=== PATIENT | female | born 1970 | race Caucasian/White ===

== ENCOUNTER 2019-03-18 15:55 | Outpatient (CLI) | payer BC, OTHER, SELFPAY ==
--- NOTE | 2019-03-18 16:06 | XR_ITS ---
WS: [id number] CERVICAL SPINE 3 VIEWS HISTORY: CERVICAL SPINE PAIN/HX OF C4/C5/C6 SURGERY COMPARISON: 05/26/2013 Anterior cervical fusion extends from C4 to C6. Interbody spacer at C4-5 and C5-6 with fusion across the disc. No fractures. Moderate disc space narrowing at C6-7. Lateral masses of C1 and C2 are aligned odontoid is intact. Soft tissues are normal. XR/XR cervical spine 3V* [id number] IMPRESSION: 1. Anterior cervical fusion from C4 to C6 with no complications. 2. Moderate degenerative disc disease at C6-7.
== END 2019-03-18 15:56 | disposition home or self-care (01) ==
LOC: RAD 16:03
PROVIDERS: Family Provider Family Medicine; PCP Family Medicine; Visit Provider Family Medicine
DX: M47.892 Other spondylosis, cervical region (principal); M54.2 Cervicalgia; Z98.1 Arthrodesis status
CPT/HCPCS: 72040

== ENCOUNTER 2019-03-27 10:06 | Emergency (ER) | payer BC, OTHER, SELFPAY ==
[2019-03-27 10:09] VITALS: BP 160/91; PULSE 101; RESP 16; TEMP 36.7; O2SAT 100; BMI 30.9
--- NOTE | 2019-03-27 10:34 | ED_ITS ---
Entered by Leanne Elizabeth acting as scribe for Alexandre Hernandez DO Mar 27, 2019 10:06 HPI - Abdominal Pain General: Chief Complaint: Abdominal Pain Stated Complaint: peeing blood Time Seen by Provider: 03/27/19 10:31 Source: patient and RN notes reviewed Mode of arrival: ambulatory Limitations: no limitations History of Present Illness: HPI narrative: 48 yo female presents to ED with complaints of hematuria. She said she has been peeing blood all morning. She said she has R sided abdominal pain that radiates to the R flank. She has been feeling tired and flushed. She said she was nauseated last night and she woke this morning nauseated. MD elicited complaint: abdominal pain (R side) and flank pain (R) Pertinent past history: none Onset (ago): hour(s) (this morning) Pain Consistency: constant Location: RLQ and R flank Severity: moderate Quality: cramping and stabbing Radiation: R flank Migration to: R flank Exacerbating factors: nothing Relieving factors: nothing Associated Symptoms: Reports dysuria and nausea; Denies chills, fever(s) and syncope Review of Systems Const: Denies: fever, chills, body aches, fatigue, malaise or night sweats Eyes: Denies: change in vision or blurry vision ENMT: Denies: throat pain, oral sores/lesions, dental pain, nasal discharge or nasal congestion Card: Denies: chest pain, palpitations, irregular heart rhythm, edema, syncope, shortness of breath on exertion, shortness of breath when lying down or leg pain with exertion Resp: Denies: shortness of breath, productive cough, non-productive cough or wheezing GI: Reports: nausea : Reports: painful urination and urinary frequency; Denies: urinary urgency or urinary incontinence Musc: Denies: neck pain, back pain, extremity pain, extremity swelling, joint pain or joint swelling Skin/Breast: Denies: rash, itching or redness Neuro: Denies: headache, numbness in extremities, weakness in extremities, changes in sensation, lack of coordination, difficulty walking, frequent falls, dizziness, vertigo or confusion Psych: Denies: anxiety, depression, loss of interest, visual hallucinations, auditory hallucinations, suicidal ideation or homicidal ideation Endo: Denies: excessive urination, excessive thirst, tired all the time or cold intolerance Juarez/Lymph: Denies: easy bruising, easy bleeding, petechiae, enlarged lymph nodes or tender lymph nodes PFSH ED PFSH: Statuses (acute, chronic, etc) shown below reflect problem list status as previously entered and may not be historically accurate Social History Smoking and tobacco status: never smoked Physical Exam Const: COMMON NORMALS: no apparent distress GENERAL APPEARANCE: cooperative and comfortable ORIENTATION/CONSCIOUSNESS: Yes awake, Yes oriented to person, Yes oriented to place and Yes oriented to time HENMT: COMMON NORMALS: normocephalic, head/scalp atraumatic, hearing grossly normal bilaterally, external ears normal, EAC's normal, TM's normal bilaterally, nasal mucous membranes and turbinates normal, moist oral mucous membranes and oropharynx normal HEAD & SCALP: normocephalic and atraumatic NOSE: nasal mucous membranes and turbinates normal EXTERNAL EAR: Yes external ears normal EXTERNAL AUDITORY CANAL: EAC's normal TYMPANIC MEMBRANE: TM's normal bilaterally Eye: COMMON NORMALS: PERRL, EOMs intact bilaterally, conjunctivae normal and no scleral icterus CONJUNCTIVA: Yes conjunctivae normal PUPIL: Yes PERRL Neck/C-Spine: COMMON NORMALS: full ROM, no lymphadenopathy, supple and no JVD Lymph: LYMPHATIC: no lymphadenopathy noted and no lymphedema noted Resp: COMMON NORMALS: normal respiratory effort, no retractions, no use of accessory muscles and clear to auscultation bilaterally AUSCULTATION: clear to auscultation bilaterally Cardio: COMMON NORMALS: no JVD, regular rate, regular rhythm and no murmurs RATE: regular rate RHYTHM: regular rhythm GI: COMMON NORMALS: soft to palpation and no hepatosplenomegaly AUSCULTATION: Yes normoactive bowel sounds PALPATION: Yes soft, No tender, No guarding and Yes no hepatosplenomegaly : BLADDER/KIDNEY EXAM: Yes CVA tenderness bilateral Back/Pelvis: GENERAL BACK: Yes CVA tenderness Extremity: COMMON NORMALS: normal to inspection, normal capillary refill, no clubbing, cyanosis or edema, no calf tenderness and no pedal edema Neuro: SENSORIUM/ORIENTATION: Yes oriented to person, Yes oriented to place and Yes oriented to time Skin: COMMON NORMALS: no rashes or lesions noted GENERAL SKIN EXAM: no rashes or lesions noted Course Vital Signs: Vital signs: Vital Signs Temperature 98.1 F 03/27/19 10:09 Pulse Rate 80 03/27/19 13:49 Respiratory Rate 18 03/27/19 13:49 Blood Pressure 133/87 03/27/19 13:49 Pulse Oximetry 98 03/27/19 13:49 MDM - Abdominal Pain Lab Data: Labs: Lab Results 03/27/19 03/27/19 03/27/19 Range/Units 10:30 10:32 10:32 WBC 14.0 H (4.0-10.0) 10^3/ uL RBC 4.61 (4.1-5.3) 10^6/u L Hgb 12.8 (11.5-15.3) g/dL Hct 39.8 (37.0-47.0) % MCV 86.3 (81-99) fL MCH 27.8 L (28.0-34.0) pg MCHC 32.2 (30.0-36.0) g/dL RDW 13.3 (12.1-15.1) % Plt Count 320 (130-400) 10^3/c mm MPV 10.4 (7.4-10.4) fL Neut % (Auto) 64.9 % Lymph % (Auto) 26.9 % King % (Auto) 5.9 % Eos % (Auto) 1.3 % Baso % (Auto) 0.4 % Neut # (Auto) 9.1 H (1.8-7.7) 10^3/u L Lymph # (Auto) 3.8 (0.8-4.8) 10^3/u L King # (Auto) 0.8 (0.2-0.9) 10^3/u L Eos # (Auto) 0.2 (0.0-0.8) 10^3/u L Baso # (Auto) 0.1 (0.0-0.1) 10^3/u L Nucleated RBC % (a uto) 0 % Nucleated RBCs # 0.0 /100WBC Sodium 138 (136-145) mmol/L Potassium 3.4 L (3.5-5.1) mmol/L Chloride 98 (98-107) mmol/L Carbon Dioxide 25 (22-29) mmol/L Anion Gap 18.4 (5-19) BUN 19 (6-20) mg/dL Creatinine 1.2 H (0.5-0.9) mg/dL GFR Calculation 47.9 L (90-130) mL/min Glucose 190 H (65-115) mg/dL Calcium 9.4 (8.5-10.5) mg/dL Total Bilirubin 0.4 (0.15-1.2) mg/dL AST 23 (0-32) U/L ALT 40 H (0-33) U/L Alkaline Phosphata se 76 (35-105) IU/L Total Protein 7.4 (6.6-8.7) g/dL Albumin 4.7 (3.5-5.2) g/dL Globulin 2.7 (1.3-4.6) g/dL Lipase 28 (13-60) U/L Urine Color Brown (Yellow) Urine Appearance Turbid (CLEAR) Urine pH 5.0 (5-7) Ur Specific Gravit y 1.025 (1.005-1.030) Urine Protein 2+ H (Negative) Urine Glucose (UA) Norm (Normal) Urine Ketones 1+ H (Negative) Urine Occult Blood 3+ H (Negative) Urine Nitrate Negative (Negative) Urine Bilirubin 1+ H (NEGATIVE) Urine Urobilinogen 1 H (Negative) mg/dL Ur Leukocyte Janell ase 1+ H (Negative) Urine RBC >100 H (0-2) /hpf Urine WBC 10-15 H (0-5) /hpf Ur Squamous Epith Cells 5-10 H (0-5) Urine Bacteria 1+ H (NONE) Imaging Data ^: CT Abd/Pel: Radiologist's impression: [place] [address] CT Scan Report Signed Patient: Janette Nguyen AUnit #: [id number] : 1970Acct#:[id number] Age/Sex: 48 / FADM Date: 03/27/19 Loc: ERRoom/Bed: Attending Dr: Ordering Provider/Ordering MD: Alexandre Hernandez DO Date of Service: 03/27/19 Procedure(s): CT kidney stone 14201 Accession Number(s): [id number] Report Number: [id number] PROCEDURE INFORMATION: Exam: CT Abdomen And Pelvis Without Contrast Exam date and time: 03/27/2019 12:06 PM Age: 48 years old Clinical indication: Abdominal pain; Prior surgery; Surgery type: Gb. Hysterectomy. ; Patient HX: Right flank pain with hematuria. History of nephrolithiasis TECHNIQUE: Imaging protocol: Computed tomography of the abdomen and pelvis without contrast. Total DLP: 1827.79 mGy-cm Radiation optimization: All CT scans at this facility use at least one of these dose optimization techniques: automated exposure control; mA and/or kV adjustment per patient size (includes targeted exams where dose is matched to clinical indication); or iterative reconstruction. COMPARISON: CT abdomen pelvis w con* [id number] 04/30/2017 1:56 PM FINDINGS: Pleural space: No acute airspace or pleural disease. Liver: Fatty infiltration of the liver and poorly characterized 1.7 and 1.5 cm nodular lesions of soft tissue attenuation in the right hepatic lobe (series 2: Images 40 and 50). Gallbladder and bile ducts: Status post cholecystectomy without biliary ductal dilatation. Pancreas: No pancreatic mass or ductal dilatation. Spleen: Spleen upper limits of normal in size. Adrenals: Unremarkable adrenals. Kidneys and ureters: Lobulated renal morphology. No urolithiasis or hydronephrosis. Stomach and bowel: 2.2 cm duodenal diverticulum. Mild gastric wall thickening. No significant small bowel dilatation. Copious stool in the dilated colon, in a pattern of constipation. Appendix: No acute appendicitis. Intraperitoneal space: No free fluid. Vasculature: Pelvic vascular calcifications. Normal caliber of the abdominal aorta. Lymph nodes: Subcentimeter lymph nodes. Bladder: Nondistended bladder. Reproductive: Status post hysterectomy. Bones/joints: Mild degenerative change. Soft tissues: Fat containing umbilical hernia. CT/CT kidney stone [id number] IMPRESSION: 1. Fatty infiltration of the liver and poorly characterized 1.7 and 1.5 cm nodular lesions of soft tissue attenuation in the right hepatic lobe. 2. No urolithiasis or hydronephrosis. 3. Copious stool in the dilated colon, in a pattern of constipation. 4. Additional findings as described above. Radiation Dose CTDIVOL = (mGy): DLP = 1827.79 (mGy-cm) Dictated By:Hardy Fry MD Signed By:Ang,Hardy MDSigned Date/Time:03/27/19 1306 DD/ Discharge Plan Discharge Patient Disposition: Home, Self-Care Clinical Impression: Cystitis, Constipation Condition: Stable Prescriptions: New Cipro 500 mg tablet 500 mg PO BID 5 Days Qty: 10 RF: 0 No Action levothyroxine 175 mcg tablet 175 mcg PO DAILY RF: 0 gabapentin 600 mg tablet 600 mg PO TID RF: 0 diclofenac sodium 100 mg tablet extended release 24 hr 100 mg PO DAILY RF: 0 prednisone 5 mg tablet See Rx Instructions .ROUTE .COMPLEX RF: 0 omeprazole 40 mg capsule,delayed release(DR/EC) 40 mg PO DAILY RF: 0 liothyronine 5 mcg tablet 5 mcg PO DAILY RF: 0 glimepiride 2 mg tablet 2 mg PO DAILY RF: 0 Tylenol Arthritis Pain 650 mg Tablet Extended Release 1,300 mg PO BID PRN (Reason: unknown) RF: 0 potassium chloride 20 mEq tablet,ER particles/crystals 20 meq PO DAILY RF: 0 baclofen 10 mg tablet 10 mg PO TID PRN (Reason: Spasms) RF: 0 prednisone 50 mg tablet See Rx Instructions .ROUTE .COMPLEX RF: 0 Aleve 220 mg Tablet 220 mg PO BID PRN (Reason: Pain) RF: 0 lidocaine 5 % adhesive patch,medicated See Rx Instructions .ROUTE .COMPLEX RF: 0 Allergy Relief D12 5-120 mg tablet extended release 12 hr 1 tab PO DAILY RF: 0 furosemide 20 mg tablet 40 mg PO DAILY PRN (Reason: Edema) RF: 0 zolpidem 10 mg tablet 10 mg PO BEDTIME PRN (Reason: Sleep) RF: 0 paroxetine HCl 40 mg tablet 40 mg PO DAILY RF: 0 ipratropium bromide 0.03 % spray,non-aerosol 2 spray INTRANASAL DAILY PRN (Reason: unknown) RF: 0 cyclobenzaprine 5 mg tablet 5 mg PO TID PRN (Reason: Spasms) RF: 0 buprenorphine-naloxone 8-2 mg Film 2 film BUCCAL DAILY PRN (Reason: unknown) RF: 0 Discharge Orders: Discharge Order (Routine); Ordered 03/27/19 Ordered By: Alexandre Hernandez Referrals: Maliha Tijerina MD [Primary Care Provider] - Discharge Diet: Usual diet Discharge Activity: Resume usual activity Discharge Date/Time: 03/27/19 13:37 Coding Level of Care Code ED Bpo Specialist for Chg Fwd The documentation recorded by the Glenn burch Valerie R, accurately reflects the service I personally performed and the decisions made by David leyva Curtis L, DO Mar 27, 2019 10:06
[2019-03-27 10:44] LABS: Basophils # 0.1 10^3/uL (0.0-0.1); Basophils % 0.4 %; Eosinophils # 0.2 10^3/uL (0.0-0.8); Eosinophils % 1.3 %; Hematocrit 39.8 % (37.0-47.0); Hemoglobin 12.8 g/dL (11.5-15.3); Lymphocytes # 3.8 10^3/uL (0.8-4.8); Lymphocytes % 26.9 %; Mean Corpuscular HGB Conc 32.2 g/dL (30.0-36.0); Mean Corpuscular Hemoglobin 27.8 pg (28.0-34.0); Mean Corpuscular Volume 86.3 fL (81-99); Mean Platelet Volume 10.4 fL (7.4-10.4); Monocytes # 0.8 10^3/uL (0.2-0.9); Monocytes % 5.9 %; Neutrophils # 9.1 10^3/uL (1.8-7.7); Neutrophils % 64.9 %; Nucleated Red Blood Cells % 0 %; Platelet Count 320 10^3/cmm (130-400); Red Blood Count 4.61 10^6/uL (4.1-5.3); Red Cell Distribution Width 13.3 % (12.1-15.1)
[2019-03-27 10:49] LABS: Add Urine Microscopic? YES; Bilirubin Urine 1+ (NEGATIVE); Blood Urine 3+ (Negative); Glucose Urine UA Norm (Normal); Ketones Urine 1+ (Negative); Leukocyte Esterase Urine 1+ (Negative); Nitrate Urine Negative (Negative); Protein Urine 2+ (Negative); Specific Gravity, Urine 1.025 (1.005-1.030); Urine Appearance Turbid (CLEAR); Urine Color Brown (Yellow); Urobilinogen Urine 1 mg/dL (Negative)
[2019-03-27 10:55] LABS: Alanine Aminotransferase 40 U/L (0-33); Albumin Level 4.7 g/dL (3.5-5.2); Alkaline Phosphatase 76 IU/L (35-105); Anion Gap 18.4 (5-19); Aspartate Amino Transferase 23 U/L (0-32); Blood Urea Nitrogen 19 mg/dL (6-20); Calcium 9.4 mg/dL (8.5-10.5); Carbon Dioxide 25 mmol/L (22-29); Chloride 98 mmol/L (98-107); Globulin 2.7 g/dL (1.3-4.6); Glomerular Filtration Rate 47.9 mL/min (90-130); Glucose 190 mg/dL (65-115); Lipase 28 U/L (13-60); Potassium 3.4 mmol/L (3.5-5.1); Sodium 138 mmol/L (136-145); Total Bilirubin 0.4 mg/dL (0.15-1.2); Total Protein 7.4 g/dL (6.6-8.7)
[2019-03-27 11:00] LABS: Add Urine Culture? Yes; Bacteria Urine 1+; RBC Urine >100 /hpf (0-2)
--- NOTE | 2019-03-27 11:35 | CTR_ITS ---
PROCEDURE INFORMATION: Exam: CT Abdomen And Pelvis Without Contrast Exam date and time: 03/27/2019 12:06 PM Age: 48 years old Clinical indication: Abdominal pain; Prior surgery; Surgery type: Gb. Hysterectomy. ; Patient HX: Right flank pain with hematuria. History of nephrolithiasis TECHNIQUE: Imaging protocol: Computed tomography of the abdomen and pelvis without contrast. Total DLP: 1827.79 mGy-cm Radiation optimization: All CT scans at this facility use at least one of these dose optimization techniques: automated exposure control; mA and/or kV adjustment per patient size (includes targeted exams where dose is matched to clinical indication); or iterative reconstruction. COMPARISON: CT abdomen pelvis w con* [id number] 04/30/2017 1:56 PM FINDINGS: Pleural space: No acute airspace or pleural disease. Liver: Fatty infiltration of the liver and poorly characterized 1.7 and 1.5 cm nodular lesions of soft tissue attenuation in the right hepatic lobe (series 2: Images 40 and 50). Gallbladder and bile ducts: Status post cholecystectomy without biliary ductal dilatation. Pancreas: No pancreatic mass or ductal dilatation. Spleen: Spleen upper limits of normal in size. Adrenals: Unremarkable adrenals. Kidneys and ureters: Lobulated renal morphology. No urolithiasis or hydronephrosis. Stomach and bowel: 2.2 cm duodenal diverticulum. Mild gastric wall thickening. No significant small bowel dilatation. Copious stool in the dilated colon, in a pattern of constipation. Appendix: No acute appendicitis. Intraperitoneal space: No free fluid. Vasculature: Pelvic vascular calcifications. Normal caliber of the abdominal aorta. Lymph nodes: Subcentimeter lymph nodes. Bladder: Nondistended bladder. Reproductive: Status post hysterectomy. Bones/joints: Mild degenerative change. Soft tissues: Fat containing umbilical hernia. CT/CT kidney stone [id number] IMPRESSION: 1. Fatty infiltration of the liver and poorly characterized 1.7 and 1.5 cm nodular lesions of soft tissue attenuation in the right hepatic lobe. 2. No urolithiasis or hydronephrosis. 3. Copious stool in the dilated colon, in a pattern of constipation. 4. Additional findings as described above. Radiation Dose CTDIVOL = (mGy): DLP = 1827.79 (mGy-cm)
[2019-03-27 13:49] VITALS: BP 133/87; PULSE 80; RESP 18; O2SAT 98
== END 2019-03-27 13:37 | disposition home or self-care (01) ==
PROVIDERS: Emergency Provider Family Medicine; Family Provider Family Medicine; PCP Family Medicine
DX: N30.90 Cystitis, unspecified without hematuria (principal); K59.00 Constipation, unspecified
CPT/HCPCS: 36415; 74176; 80053; 81001; 83690; 85025; 87077; 87086; 87186; 99281; 99283; A9270

== ENCOUNTER 2019-04-25 01:33 | Emergency (ER) | payer BC, OTHER, SELFPAY ==
[2019-04-25] VITALS (21 sets, daily range): BP systolic 124; BP diastolic 72–78; PULSE 64–104; RESP 12–29; TEMP 36.7; O2SAT 91–99
--- NOTE | 2019-04-25 01:38 | ED_ITS ---
Entered by Melany Cazares, acting as scribe for Adalid Velazquez MD HPI - SOB/Dyspnea General: Chief Complaint: Shortness of Breath/Dyspnea Stated Complaint: sob/weak Time Seen by Provider: 04/25/19 01:42 History of Present Illness: HPI Narrative: 48 yo f came to the er pov for shortness of breath and low blood pressure. Onset was tonight. Pt states that she has been sick for about 1 week. pt has a cough, dull chest pain, shortness of breath and low bp 85/60 when they took it at home. Patient's blood pressure here is been normal. Patient's had slight abdominal pain. Patient denies any vomiting or diarrhea. MD elicited complaint: shortness of breath and cough Context: recent illness Timing: intermittent Severity: mild Exacerbating factors: nothing Relieving factors: nothing Associated symptoms: Reports cough; Deny abdominal pain, chest pain, fever(s), nausea or vomiting Treatment prior to arrival: none Related Data: Home oxygen amount: none Review of Systems General: Reports: other (negative unless marked) Const: Denies: fever, chills, body aches or change in appetite Eyes: Denies: blurry vision or eye discomfort ENMT: Denies: throat pain or dental pain Card: Denies: chest pain Resp: Reports: shortness of breath and productive cough GI: Denies: abdominal pain, nausea, vomiting or diarrhea : Denies: painful urination Musc: Denies: neck pain or back pain Skin/Breast: Denies: rash Neuro: Denies: headache Psych: Denies: depression Juarez/Lymph: Denies: easy bruising All/Imm: Denies: hives PFS ED PFSH: Social History Smoking and tobacco status: never smoked Physical Exam Const: COMMON NORMALS: no apparent distress, oriented x3 and healthy appearing HENMT: COMMON NORMALS: normocephalic and head/scalp atraumatic HEAD & SCALP: normocephalic and atraumatic Eye: COMMON NORMALS: PERRL and EOMs intact bilaterally PUPIL: Yes PERRL Neck/C-Spine: COMMON NORMALS: full ROM and supple Chest: COMMONS NORMALS: inspection of chest normal and palpation of chest normal Resp: COMMON NORMALS: normal respiratory effort, no retractions, no use of accessory muscles and clear to auscultation bilaterally AUSCULTATION: clear to auscultation bilaterally Cardio: COMMON NORMALS: regular rate, regular rhythm and no murmurs RATE: regular rate RHYTHM: regular rhythm GI: COMMON NORMALS: normal to inspection, nondistended, normoactive bowel sounds, soft to palpation, non-tender and no masses PALPATION: Yes soft Extremity: COMMON NORMALS: normal to inspection and full ROM Neuro: COMMON NORMALS: oriented x3, moves all extremities and no focal motor deficits Psych: COMMON NORMALS: mental status grossly normal, thought process normal and cooperative THOUGHT PROCESS: normal thought process Skin: COMMON NORMALS: no rashes or lesions noted and no wounds GENERAL SKIN EXAM: no rashes or lesions noted Course Vital Signs: Vital signs: Vital Signs Temperature 98.1 F 04/25/19 01:38 Pulse Rate 98 04/25/19 01:41 Respiratory Rate 16 04/25/19 01:41 Blood Pressure 124/78 04/25/19 01:41 Pulse Oximetry 97 04/25/19 01:41 MDM - SOB/Dyspnea MDM Narrative: Medical decision making narrative: Janette presents here with cough shortness of breath along with abdominal pain. CT shows colitis. CT of her chest shows no signs of pneumonia or pulmonary bruising. Patient has no flu. She feels much improved here and will discharge on Augmentin. She is to follow-up with primary care doctor in 3 to 5 days return if worsening. She understands and agrees to plan. Lab Data: Labs: Lab Results 04/25/19 04/25/19 04/25/19 Range/Units 01:43 01:43 01:43 WBC 20.5 H (4.0-10.0) 10^3/ uL RBC 4.45 (4.1-5.3) 10^6/u L Hgb 12.7 (11.5-15.3) g/dL Hct 39.2 (37.0-47.0) % MCV 88.1 (81-99) fL MCH 28.5 (28.0-34.0) pg MCHC 32.4 (30.0-36.0) g/dL RDW 12.8 (12.1-15.1) % Plt Count 313 (130-400) 10^3/c mm MPV 10.1 (7.4-10.4) fL Neut % (Auto) 81.3 % Lymph % (Auto) 13.9 % [place] % (Auto) 3.8 % Eos % (Auto) 0.2 % Baso % (Auto) 0.1 % Neut # (Auto) 16.7 H (1.8-7.7) 10^3/u L Lymph # (Auto) 2.9 (0.8-4.8) 10^3/u L [place] # (Auto) 0.8 (0.2-0.9) 10^3/u L Eos # (Auto) 0.0 (0.0-0.8) 10^3/u L Baso # (Auto) 0.0 (0.0-0.1) 10^3/u L Nucleated RBC % (a uto) 0 % Nucleated RBCs # 0.0 /100WBC Sodium 137 (136-145) mmol/L Potassium 3.6 (3.5-5.1) mmol/L Chloride 99 (98-107) mmol/L Carbon Dioxide 22 (22-29) mmol/L Anion Gap 19.6 H (5-19) BUN 20 (6-20) mg/dL Creatinine 1.2 H (0.5-0.9) mg/dL GFR Calculation 47.9 L (90-130) mL/min Glucose 175 H (65-115) mg/dL Lactic Acid (0.5-2.2) mmol/L Calcium 9.1 (8.5-10.5) mg/dL Total Bilirubin 0.4 (0.15-1.2) mg/dL AST 15 (0-32) U/L ALT 18 (0-33) U/L Alkaline Phosphata se 71 (35-105) IU/L Troponin T Baselin e 6 (0-10) ng/mL Total Protein 7.0 (6.6-8.7) g/dL Albumin 4.0 (3.5-5.2) g/dL Globulin 3.0 (1.3-4.6) g/dL Influenza Type A A g (Negative) POC Influenza B Ag (Negative) 04/25/19 04/25/19 Range/Units 02:15 02:30 WBC (4.0-10.0) 10^3/ uL RBC (4.1-5.3) 10^6/u L Hgb (11.5-15.3) g/dL Hct (37.0-47.0) % MCV (81-99) fL MCH (28.0-34.0) pg MCHC (30.0-36.0) g/dL RDW (12.1-15.1) % Plt Count (130-400) 10^3/c mm MPV (7.4-10.4) fL Neut % (Auto) % Lymph % (Auto) % [place] % (Auto) % Eos % (Auto) % Baso % (Auto) % Neut # (Auto) (1.8-7.7) 10^3/u L Lymph # (Auto) (0.8-4.8) 10^3/u L Licking # (Auto) (0.2-0.9) 10^3/u L Eos # (Auto) (0.0-0.8) 10^3/u L Baso # (Auto) (0.0-0.1) 10^3/u L Nucleated RBC % (a uto) % Nucleated RBCs # /100WBC Sodium (136-145) mmol/L Potassium (3.5-5.1) mmol/L Chloride (98-107) mmol/L Carbon Dioxide (22-29) mmol/L Anion Gap (5-19) BUN (6-20) mg/dL Creatinine (0.5-0.9) mg/dL GFR Calculation (90-130) mL/min Glucose (65-115) mg/dL Lactic Acid 2.1 (0.5-2.2) mmol/L Calcium (8.5-10.5) mg/dL Total Bilirubin (0.15-1.2) mg/dL AST (0-32) U/L ALT (0-33) U/L Alkaline Phosphata se (35-105) IU/L Troponin T Baselin e (0-10) ng/mL Total Protein (6.6-8.7) g/dL Albumin (3.5-5.2) g/dL Globulin (1.3-4.6) g/dL Influenza Type A A g Negative (Negative) POC Influenza B Ag Negative (Negative) Imaging Data^: CXR: Radiologist's impression: [facility] [address] [place] [address] XRay Report Signed Patient: Janette Nguyenit #: [id number] : 1970Acct#:[id number] Age/Sex: 48 / FADM Date: 04/25/19 Loc: ERRoom/Bed: Attending Dr: Ordering Provider/Ordering MD: Adalid Velazquez MD Date of Service: 04/25/19 Procedure(s): XR chest 1V portable [id number] Accession Number(s): [id number] Report Number: [id number] PROCEDURE INFORMATION: Exam: XR Chest, 1 View Exam date and time: 04/25/2019 2:05 AM Age: 48 years old Clinical indication: Shortness of breath; Chest pain; Type not specified; Additional info: Cp TECHNIQUE: Imaging protocol: XR of the chest Views: 1 view. COMPARISON: CR Chest 1 [place] [id number] 07/07/2015 4:30 PM FINDINGS: Lungs: Unremarkable. No consolidation. Pleural space: Unremarkable. No pleural effusion. No pneumothorax. Heart/Mediastinum: Unremarkable. No cardiomegaly. Bones/joints: Unremarkable. XR/XR chest 1V portable [id number] IMPRESSION: No acute findings. Dictated By:Cheikh Burt MD Signed By:Cheikh Burt MDSigned Date/Time:04/25/19223 DD/ 2 CT Abd/Pel: Radiologist's impression: [place] [id number] CT Scan Report Signed Patient: Janette Nguyen Unit #: [id number] : 1970 Age/Sex: 48 / F ADM Date: 04/25/19 Loc: ER Room/Bed: Attending Dr: Ordering Provider/Ordering MD: Adalid Velazquez MD Date of Service: 04/25/19 Procedure(s): CT angio chest w abd pel w con Accession Number(s): [id number] Report Number: [id number] PROCEDURE INFORMATION: Exam: CT Angiography Chest With Contrast Exam date and time: 04/25/2019 3:08 AM Age: 48 years old Clinical indication: Abdominal pain; Generalized; Chest pain; Type not specified; Prior surgery; Surgery date: 6+ months; Surgery type: Hysterectomy, cholecystectomy; Additional info: Chest and abdominal pain TECHNIQUE: Imaging protocol: Computed tomographic angiography of the chest with intravenous contrast. 3D rendering: MIP and/or 3D reconstructed images were created by the technologist. Total DLP: 2542.03 mGy-cm Radiation optimization: All CT scans at this facility use at least one of these dose optimization techniques: automated exposure control; mA and/or kV adjustment per patient size (includes targeted exams where dose is matched to clinical indication); or iterative reconstruction. Contrast material: VISI; Contrast volume: 95 ml; Contrast route: 20G; COMPARISON: CTA Chest-[place] [id number] 04/12/2015 8:31 AM FINDINGS: Pulmonary arteries: Normal. No pulmonary emboli. Aorta: Unremarkable. No aortic aneurysm. No aortic dissection. Lungs: Unremarkable. No consolidation. No masses. Pleural space: Unremarkable. No pneumothorax. No pleural effusion. Heart: Unremarkable. No cardiomegaly. No pericardial effusion. Lymph nodes: Unremarkable. No enlarged lymph nodes. Bones/joints: Unremarkable. No acute fracture. Soft tissues: Unremarkable. IMPRESSION: No acute findings. PROCEDURE INFORMATION: Exam: CT Abdomen And Pelvis With Contrast Exam date and time: 04/25/2019 3:08 AM Age: 48 years old Clinical indication: Abdominal pain; Generalized; Chest pain; Type not specified; Prior surgery; Surgery date: 6+ months; Surgery type: Hysterectomy, cholecystectomy; Additional info: Chest and abdominal pain TECHNIQUE: Imaging protocol: Computed tomography of the abdomen and pelvis with intravenous contrast. Total DLP: 2542.03 mGy-cm Radiation optimization: All CT scans at this facility use at least one of these dose optimization techniques: automated exposure control; mA and/or kV adjustment per patient size (includes targeted exams where dose is matched to clinical indication); or iterative reconstruction. Contrast material: VISI; Contrast volume: 95 ml; Contrast route: 20G; COMPARISON: CTA Chest-Pulmonary Emb [id number] 04/12/2015 8:31 AM FINDINGS: Liver: There is diffuse hypoattenuation of the hepatic parenchyma compatible with fatty infiltration. Hypoattenuation is also seen adjacent to the falciform fissure likely representing focal fatty infiltration. Gallbladder and bile ducts: Status post cholecystectomy. Pancreas: Normal. No ductal dilation. Spleen: Normal. No splenomegaly. Adrenals: Normal. No mass. Kidneys and ureters: Normal. No hydronephrosis. Stomach and bowel: Few diverticula are seen on the descending and sigmoid colon. The colon appears mildly distended and fluid-filled to the level of the mid sigmoid colon, the distal sigmoid colon and rectum appear decompressed. There is no definite transition however. Some subtle haziness is seen adjacent to the distal descending colon, findings could represent mild inflammatory changes and colitis. Appendix: The appendix is visualized and is normal in configuration. Intraperitoneal space: Unremarkable. No free air. No significant fluid collection. Vasculature: Unremarkable. No abdominal aortic aneurysm. Lymph nodes: Unremarkable. No enlarged lymph nodes. Bladder: Unremarkable as visualized. Reproductive: Status post hysterectomy. Bones/joints: Unremarkable. No acute fracture. Soft tissues: Unremarkable. CT/CT angio chest w abd pel w con IMPRESSION: 1. Fatty infiltration of the liver 2. Mild diverticulosis of the descending and sigmoid colon. 3. The colon appears mildly dilated and fluid-filled to the level of the mid sigmoid colon. The distal sigmoid colon and rectum appear decompressed. There is no definite transition however. There is some haziness seen adjacent to the distal descending colon possibly representing mild inflammatory changes. These findings could represent mild diffuse colitis. Discharge Plan Discharge Patient Disposition: Home, Self-Care Clinical Impression: Colitis Condition: Stable Prescriptions: New Zofran 4 mg tablet 4 mg PO QID PRN (Reason: nausea and vomiting) Qty: 14 RF: 0 Augmentin 875-125 mg tablet 1 tab PO BID Qty: 14 RF: 0 No Action levothyroxine 175 mcg tablet 175 mcg PO DAILY RF: 0 gabapentin 600 mg tablet 600 mg PO TID RF: 0 diclofenac sodium [Voltaren-XR] 100 mg tablet extended release 24 hr 100 mg PO DAILY RF: 0 prednisone 5 mg tablet See Rx Instructions .ROUTE .COMPLEX RF: 0 omeprazole 40 mg capsule,delayed release(DR/EC) 40 mg PO DAILY RF: 0 liothyronine 5 mcg tablet 5 mcg PO DAILY RF: 0 glimepiride [Amaryl] 2 mg tablet 2 mg PO DAILY RF: 0 acetaminophen [Tylenol Arthritis Pain] 650 mg Tablet Extended Release 1,300 mg PO BID PRN (Reason: unknown) RF: 0 potassium chloride 20 mEq tablet,ER particles/crystals 20 meq PO DAILY RF: 0 baclofen 10 mg tablet 10 mg PO TID PRN (Reason: Spasms) RF: 0 prednisone 50 mg tablet See Rx Instructions .ROUTE .COMPLEX RF: 0 naproxen sodium [Aleve] 220 mg Tablet 220 mg PO BID PRN (Reason: Pain) RF: 0 lidocaine 5 % adhesive patch,medicated See Rx Instructions .ROUTE .COMPLEX RF: 0 Allergy Relief D12 5-120 mg tablet extended release 12 hr 1 tab PO DAILY RF: 0 furosemide 20 mg tablet 40 mg PO DAILY PRN (Reason: Edema) RF: 0 zolpidem 10 mg tablet 10 mg PO BEDTIME PRN (Reason: Sleep) RF: 0 paroxetine HCl 40 mg tablet 40 mg PO DAILY RF: 0 ipratropium bromide 0.03 % spray,non-aerosol 2 spray INTRANASAL DAILY PRN (Reason: unknown) RF: 0 cyclobenzaprine 5 mg tablet 5 mg PO TID PRN (Reason: Spasms) RF: 0 hydrocodone-acetaminophen 10-325 mg Tablet 1 tab PO Q6H PRN (Reason: Pain) RF: 0 doxycycline hyclate 100 mg Tablet 100 mg PO BID RF: 0 Discharge Orders: Discharge Order (Routine); Ordered 04/25/19 Ordered By: Adalid Velazquez Referrals: Maliha Tijerina MD [Primary Care Provider] - 4-7 days Discharge Diet: Advance as tolerated Discharge Activity: Resume usual activity Patient Instructions: Infectious Colitis (ED) Coding Level of Care Code [facility] The documentation recorded by the [facility] Stephanie Lyn, accurately reflects the service I personally performed and the decisions made by Marcus leyva Korby, MD Apr 25, 2019 01:33
--- NOTE | 2019-04-25 01:41 | XRR_ITS ---
PROCEDURE INFORMATION: Exam: XR Chest, 1 View Exam date and time: 04/25/2019 2:05 AM Age: 48 years old Clinical indication: Shortness of breath; Chest pain; Type not specified; Additional info: Cp TECHNIQUE: Imaging protocol: XR of the chest Views: 1 view. COMPARISON: CR Chest 1 [place] [id number] 07/07/2015 4:30 PM FINDINGS: Lungs: Unremarkable. No consolidation. Pleural space: Unremarkable. No pleural effusion. No pneumothorax. Heart/Mediastinum: Unremarkable. No cardiomegaly. Bones/joints: Unremarkable. XR/XR chest 1V portable [id number] IMPRESSION: No acute findings.
--- NOTE | 2019-04-25 02:02 | PC.NURSE ---
Introduced self to patient and initiated vital signs. Patient presents A&O x 4. NAD, ABCs intact, MAEW and agreeable to treatment. Respirations are even and unlabored. Pt states medications taken before coming to ER are her daily medications. Pt states that the chief complaint for the ER visit today is due to shortness of breath, chest heaviness , and general malaise. Pt also complaining of a cough. Pt denies any vision disturbances or lightheadedness. Bed left in lowest position in semi-fowlers with side rails up. Reassured patient of needs and will continue to monitor.
[2019-04-25 02:04] LABS: Basophils % 0.1 %; Eosinophils % 0.2 %; Hematocrit 39.2 % (37.0-47.0); Hemoglobin 12.7 g/dL (11.5-15.3); Lymphocytes # 2.9 10^3/uL (0.8-4.8); Lymphocytes % 13.9 %; Mean Corpuscular HGB Conc 32.4 g/dL (30.0-36.0); Mean Corpuscular Hemoglobin 28.5 pg (28.0-34.0); Mean Corpuscular Volume 88.1 fL (81-99); Mean Platelet Volume 10.1 fL (7.4-10.4); Monocytes # 0.8 10^3/uL (0.2-0.9); Monocytes % 3.8 %; Neutrophils # 16.7 10^3/uL (1.8-7.7); Neutrophils % 81.3 %; Nucleated Red Blood Cells % 0 %; Platelet Count 313 10^3/cmm (130-400); Red Blood Count 4.45 10^6/uL (4.1-5.3); Red Cell Distribution Width 12.8 % (12.1-15.1); White Blood Count 20.5 10^3/uL (4.0-10.0)
[2019-04-25] MEDS: sodium chloride 0.9% 1,000 ML 999 ML IV (02:10)
[2019-04-25] MEDS: LORazepam 2 mg/mL INJ 1 mL 0.5 MG IVP (02:15)
[2019-04-25] MEDS: cefTRIAXone 1,000 MG in sodium chloride 0.9% (plus) 50 ML 100 MG IV (02:18)
[2019-04-25 02:21] LABS: Alanine Aminotransferase 18 U/L (0-33); Alkaline Phosphatase 71 IU/L (35-105); Anion Gap 19.6 (5-19); Aspartate Amino Transferase 15 U/L (0-32); Blood Urea Nitrogen 20 mg/dL (6-20); Calcium 9.1 mg/dL (8.5-10.5); Carbon Dioxide 22 mmol/L (22-29); Chloride 99 mmol/L (98-107); Glomerular Filtration Rate 47.9 mL/min (90-130); Glucose 175 mg/dL (65-115); Potassium 3.6 mmol/L (3.5-5.1); Sodium 137 mmol/L (136-145); Total Bilirubin 0.4 mg/dL (0.15-1.2)
[2019-04-25 02:23] LABS: Troponin(5th) Baseline 6 ng/mL (0-10)
[2019-04-25] MEDS: azithromycin 500 MG in sodium chloride 0.9% 250 ML 250 MG IV (02:36)
[2019-04-25 02:49] LABS: Lactic Sepsis W/Reflex 2.1 mmol/L (0.5-2.2)
--- NOTE | 2019-04-25 03:04 | CTR_ITS ---
PROCEDURE INFORMATION: Exam: CT Angiography Chest With Contrast Exam date and time: 04/25/2019 3:08 AM Age: 48 years old Clinical indication: Abdominal pain; Generalized; Chest pain; Type not specified; Prior surgery; Surgery date: 6+ months; Surgery type: Hysterectomy, cholecystectomy; Additional info: Chest and abdominal pain TECHNIQUE: Imaging protocol: Computed tomographic angiography of the chest with intravenous contrast. 3D rendering: MIP and/or 3D reconstructed images were created by the technologist. Total DLP: 2542.03 mGy-cm Radiation optimization: All CT scans at this facility use at least one of these dose optimization techniques: automated exposure control; mA and/or kV adjustment per patient size (includes targeted exams where dose is matched to clinical indication); or iterative reconstruction. Contrast material: VISI; Contrast volume: 95 ml; Contrast route: 20G; COMPARISON: CTA Chest-[place] Emb [id number] 04/12/2015 8:31 AM FINDINGS: Pulmonary arteries: Normal. No pulmonary emboli. Aorta: Unremarkable. No aortic aneurysm. No aortic dissection. Lungs: Unremarkable. No consolidation. No masses. Pleural space: Unremarkable. No pneumothorax. No pleural effusion. Heart: Unremarkable. No cardiomegaly. No pericardial effusion. Lymph nodes: Unremarkable. No enlarged lymph nodes. Bones/joints: Unremarkable. No acute fracture. Soft tissues: Unremarkable. IMPRESSION: No acute findings. PROCEDURE INFORMATION: Exam: CT Abdomen And Pelvis With Contrast Exam date and time: 04/25/2019 3:08 AM Age: 48 years old Clinical indication: Abdominal pain; Generalized; Chest pain; Type not specified; Prior surgery; Surgery date: 6+ months; Surgery type: Hysterectomy, cholecystectomy; Additional info: Chest and abdominal pain TECHNIQUE: Imaging protocol: Computed tomography of the abdomen and pelvis with intravenous contrast. Total DLP: 2542.03 mGy-cm Radiation optimization: All CT scans at this facility use at least one of these dose optimization techniques: automated exposure control; mA and/or kV adjustment per patient size (includes targeted exams where dose is matched to clinical indication); or iterative reconstruction. Contrast material: VISI; Contrast volume: 95 ml; Contrast route: 20G; COMPARISON: CTA Chest-Pulmonary Emb [id number] 04/12/2015 8:31 AM FINDINGS: Liver: There is diffuse hypoattenuation of the hepatic parenchyma compatible with fatty infiltration. Hypoattenuation is also seen adjacent to the falciform fissure likely representing focal fatty infiltration. Gallbladder and bile ducts: Status post cholecystectomy. Pancreas: Normal. No ductal dilation. Spleen: Normal. No splenomegaly. Adrenals: Normal. No mass. Kidneys and ureters: Normal. No hydronephrosis. Stomach and bowel: Few diverticula are seen on the descending and sigmoid colon. The colon appears mildly distended and fluid-filled to the level of the mid sigmoid colon, the distal sigmoid colon and rectum appear decompressed. There is no definite transition however. Some subtle haziness is seen adjacent to the distal descending colon, findings could represent mild inflammatory changes and colitis. Appendix: The appendix is visualized and is normal in configuration. Intraperitoneal space: Unremarkable. No free air. No significant fluid collection. Vasculature: Unremarkable. No abdominal aortic aneurysm. Lymph nodes: Unremarkable. No enlarged lymph nodes. Bladder: Unremarkable as visualized. Reproductive: Status post hysterectomy. Bones/joints: Unremarkable. No acute fracture. Soft tissues: Unremarkable. CT/CT angio chest w abd pel w con IMPRESSION: 1. Fatty infiltration of the liver 2. Mild diverticulosis of the descending and sigmoid colon. 3. The colon appears mildly dilated and fluid-filled to the level of the mid sigmoid colon. The distal sigmoid colon and rectum appear decompressed. There is no definite transition however. There is some haziness seen adjacent to the distal descending colon possibly representing mild inflammatory changes. These findings could represent mild diffuse colitis. Radiation Dose CTDIVOL = (mGy): DLP = 2542.03~2542.03 (mGy-cm)
[2019-04-25 03:18] LABS: Influenza A by IFA Negative (Negative); Influenza B by IFA Negative (Negative)
[2019-04-25] MEDS: iodixanol 320 mg/mL 100mL Btl IV (03:55)
[2019-04-25 04:13] LABS: Reflex Lactate Order REFLEX LACTIC ORDERD
[2019-04-25 04:21] LABS: Troponin 5 2HR Delta 0 ABS# (0-10)
--- NOTE | 2019-04-25 07:42 | ECG_ITS ---
Measurements Intervals [place] Rate: 98 P: 16 ME: 154 QRS: 28 QRSD: 80 T: 52 QT: 327 QTc: 418 SINUS RHYTHM NONSPECIFIC T-WAVE ABNORMALITY Compared to ECG 07/07/2015 13:11:55 T-wave abnormality now present Sinus tachycardia no longer present ST (T wave) deviation no longer present Electronically Signed On 04-25-2019 15:39:03 BUSINESS INTEGRATION ANALYST by Debby Shannon M.D. [email or web address]
== END 2019-04-25 04:38 | disposition home or self-care (01) ==
PROVIDERS: Emergency Provider Emergency Medicine; Family Provider Family Medicine; PCP Family Medicine
DX: K52.9 Noninfective gastroenteritis and colitis, unspecified (principal)
CPT/HCPCS: 12345; 36415; 71045; 71275; 74177; 80053; 83605; 84484; 85025; 87040; 87804; 93005; 96365; 96367; 96374; 96375; 99283; 99284; J0456; J0696; J2060; J7030; J7050; Q9967

== ENCOUNTER → 2019-05-08 11:33 | Outpatient (BNVA) | payer BC, OTHER, SELFPAY | PROVIDERS: Family Provider Family Medicine; PCP Family Medicine; Visit Provider Urology | DX: R31.0 Gross hematuria (principal); N39.0 Urinary tract infection, site not specified | CPT/HCPCS: 80053; 81001 ==

== ENCOUNTER → 2019-06-23 10:09 | Outpatient (BNVA) | payer BC, OTHER, SELFPAY | PROVIDERS: Family Provider Family Medicine; PCP Family Medicine; Visit Provider Urology | DX: N39.0 Urinary tract infection, site not specified (principal); R31.0 Gross hematuria | CPT/HCPCS: 81001 ==

== ENCOUNTER → 2019-08-29 11:22 | Outpatient (BNVA) | payer BC, OTHER, SELFPAY | PROVIDERS: Family Provider Family Medicine; PCP Family Medicine; Visit Provider Nurse Practitioner Family | DX: R05 Cough (principal) | CPT/HCPCS: 87635 ==

== ENCOUNTER 2019-09-22 15:50 | Outpatient (CLI) | payer BC, OTHER, SELFPAY ==
--- NOTE | 2019-09-22 15:55 | CT_ITS ---
WS: [id number] CT CERVICAL SPINE TECHNIQUE: Noncontrast CT of the cervical spine with coronal and sagittal reformatted images. CLINICAL INFORMATION: CERVICALGIA COMPARISON: None. DLP: 1738.[address] scans at [facility] use at least one of these dose optimization techniques: automat ed exposure control; mA and/or kV adjustment per patient size (includes targeted exams where dose is matched to clinical indication); or iterative reconstruction. FINDINGS: Straightening of the normal cervical lordosis. Anterior interbody cervical fusion C4-C6. No evidence of hardware loosening. Interbody fusion grafts C4-C5 and C5-C6. Interbody fusion grafts have matured since 2014. Evidence of bony bridging beyond the confines of the graft. Graft appears solid. C2-C3: Normal. C3-C4: Mild right and no significant left foraminal narrowing. Mild facet arthropathy. C4-C5: Postoperative changes anterior interbody cervical fusion. Spinal canal and foramen are patent. Mild facet arthropathy. C5-C6:Anterior interbody cervical fusion. Moderate left and no significant right foraminal narrowing. Slight effacement of ventral thecal sac. Mild facet arthropathy. Slight narrowing of the left subart icular recess. C6-7: Disc osteophyte complex with endplate ridging. Moderate to severe left and no significant right foraminal narrowing. Slight effacement of ventral thecal sac with mild central canal stenosis. Mild facet arthropathy. C7-T1: Mild left bony foraminal narrowing. Spinal canal and foramen are patent. Visualized posterior nasopharynx: Normal. Prevertebral soft tissues: Normal. CT/CT cervical spin wo con* [id number] IMPRESSION: 1. Prior postoperative changes anterior interbody cervical fusion C4-C6. No ev idence of hardware loosening. 2. Solid appearing interbody fusion grafts C4-C5 and C5-C6 with evidence of laury ny bridging beyond the confines of the grafts. 3. Moderate left C5-C6 and moderate to severe left C6-C7 bony foraminal narrow ing. 4. Mild central canal stenosis C6-7.
== END 2019-09-22 15:51 | disposition home or self-care (01) ==
LOC: RADWPI 15:55
PROVIDERS: Family Provider Family Medicine; PCP Family Medicine; Visit Provider Physician Assistant Surgical
DX: M54.2 Cervicalgia (principal); M43.22 Fusion of spine, cervical region; M48.02 Spinal stenosis, cervical region; M25.78 Osteophyte, vertebrae; M47.812 Spondylosis without myelopathy or radiculopathy, cervical region
CPT/HCPCS: 72125

== ENCOUNTER → 2020-01-13 08:38 | Outpatient (BNVA) | payer BC, OTHER, SELFPAY | PROVIDERS: Family Provider Family Medicine; PCP Family Medicine; Visit Provider Anesthesiology Pain Medicine | DX: M47.816 Spondylosis without myelopathy or radiculopathy, lumbar region (principal); M51.36 Other intervertebral disc degeneration, lumbar region; M54.12 Radiculopathy, cervical region; M50.90 Cervical disc disorder, unspecified, unspecified cervical region; M33.20 Polymyositis, organ involvement unspecified; M54.9 Dorsalgia, unspecified; Z79.891 Long term (current) use of opiate analgesic | CPT/HCPCS: 99205 ==

== ENCOUNTER → 2020-01-21 13:18 | Outpatient (BNVA) | payer BC, OTHER, SELFPAY | PROVIDERS: Family Provider Family Medicine; PCP Family Medicine; Visit Provider Anesthesiology Pain Medicine | DX: M47.816 Spondylosis without myelopathy or radiculopathy, lumbar region (principal); M54.12 Radiculopathy, cervical region; M50.90 Cervical disc disorder, unspecified, unspecified cervical region; M33.20 Polymyositis, organ involvement unspecified; M51.36 Other intervertebral disc degeneration, lumbar region; M54.9 Dorsalgia, unspecified | CPT/HCPCS: 64493; 64494; 64495; 99213; J3490 ==

== ENCOUNTER 2020-01-28 12:40 | Outpatient (CLI) | payer BC, OTHER, SELFPAY ==
--- NOTE | 2020-01-28 13:08 | MR_ITS ---
WS: [id number] INDICATION: Swelling left foot TECHNIQUE: MRI of the left gadolinium enhancement FINDINGS: Marker in the area of concern plantar aspect of the foot. Normal underlying soft tissue and plantar fascia. Normal subcutaneous fat in this location. No evidence of pathologic mass or lesion i n this area. No T2 signal abnormality. Normal ankle mortise. Normal medial and lateral malleolus. Normal talus and calcaneus. No abnormal laury ne marrow edema. Distal Achilles is normal. Normal peroneal tendons. Normal extensor and flexor corinne rtment tendons. Normal navicular and tarsal bones. Normal proximal metatarsals. MR/MR foot LT wo con* [id number] IMPRESSION: 1. No evidence of suspicious mass or lesion in the area of the palpable marker plantar midfoot. Normal underlying subcutaneous soft tissues. 2. Normal plantar fascia. 3. Normal bone marrow signal. 4. Distal Achilles is normal. 5. No other significant findings.
== END 2020-01-28 12:41 | disposition home or self-care (01) ==
LOC: RADWPI 12:41
PROVIDERS: PCP Family Medicine; Visit Provider Family Medicine
DX: R22.40 Localized swelling, mass and lump, unspecified lower limb (principal)
CPT/HCPCS: 73718

== ENCOUNTER → 2020-02-04 09:16 | Outpatient (BNVA) | payer BC, OTHER, SELFPAY | PROVIDERS: Family Provider Family Medicine; PCP Family Medicine; Visit Provider Anesthesiology Pain Medicine | DX: M47.816 Spondylosis without myelopathy or radiculopathy, lumbar region (principal); M51.36 Other intervertebral disc degeneration, lumbar region; M54.9 Dorsalgia, unspecified; M54.12 Radiculopathy, cervical region; M33.20 Polymyositis, organ involvement unspecified; M50.90 Cervical disc disorder, unspecified, unspecified cervical region | CPT/HCPCS: 99213; 99214 ==

== ENCOUNTER 2020-02-10 15:45 | Outpatient (CLI) | payer BC, OTHER, SELFPAY | END 2020-02-10 15:46 | disposition home or self-care (01) | LOC: SPT 15:46 | PROVIDERS: Family Provider Family Medicine; PCP Family Medicine; Visit Provider Podiatrist Foot & Ankle Surgery | DX: Z46.89 Encounter for fitting and adjustment of other specified devices (principal); M72.2 Plantar fascial fibromatosis | CPT/HCPCS: 73630; 97760; L4361; L4397 ==

== ENCOUNTER → 2020-03-08 12:35 | Outpatient (BNVA) | payer BC, OTHER, SELFPAY | PROVIDERS: Family Provider Family Medicine; PCP Family Medicine; Visit Provider Anesthesiology Pain Medicine | DX: M47.816 Spondylosis without myelopathy or radiculopathy, lumbar region (principal); M54.9 Dorsalgia, unspecified | CPT/HCPCS: 64493; 64494; 64495; J3490 ==

== ENCOUNTER → 2020-04-01 09:21 | Outpatient (BNVA) | payer BC, OTHER, SELFPAY | PROVIDERS: Family Provider Family Medicine; PCP Family Medicine; Visit Provider Anesthesiology Pain Medicine | DX: M54.9 Dorsalgia, unspecified (principal); M47.816 Spondylosis without myelopathy or radiculopathy, lumbar region; M51.36 Other intervertebral disc degeneration, lumbar region; M33.20 Polymyositis, organ involvement unspecified; M54.12 Radiculopathy, cervical region; M50.90 Cervical disc disorder, unspecified, unspecified cervical region | CPT/HCPCS: 99214 ==

== ENCOUNTER → 2020-04-09 13:20 | Outpatient (BNVA) | payer BC, OTHER, SELFPAY | PROVIDERS: Family Provider Family Medicine; PCP Family Medicine; Visit Provider Anesthesiology Pain Medicine | DX: M47.816 Spondylosis without myelopathy or radiculopathy, lumbar region (principal); M51.36 Other intervertebral disc degeneration, lumbar region; M54.9 Dorsalgia, unspecified | CPT/HCPCS: 64635; 64636; J1030 ==

== ENCOUNTER 2020-06-09 16:04 | Outpatient (CLI) | payer BC, OTHER, SELFPAY | END 2020-06-09 16:05 | disposition home or self-care (01) | LOC: SPT 16:05 | PROVIDERS: Family Provider Family Medicine; PCP Family Medicine; Visit Provider Podiatrist Foot & Ankle Surgery | DX: Z46.89 Encounter for fitting and adjustment of other specified devices (principal); M72.2 Plantar fascial fibromatosis | CPT/HCPCS: L3030 ==

== ENCOUNTER 2020-07-18 02:12 | Inpatient (IN) | payer BC, OTHER, SELFPAY ==
[2020-07-18] VITALS (43 sets, daily range): BP systolic 72–129; BP diastolic 45–80; PULSE 94–117; RESP 12–30; TEMP 36.7–37.3; O2SAT 75–100; BMI 29.5; BMI 31.4
--- NOTE | 2020-07-18 02:33 | CTR_ITS ---
PROCEDURE INFORMATION: Exam: CT Head Without Contrast Exam date and time: 07/18/2020 2:50 AM Age: 49 years old Clinical indication: Injury or trauma; Fall; Blunt trauma (contusions or hematomas); With loss of consciousness; Loss of consciousness 1 hr. To 5hrs. 59 min. ; Prior surgery; Surgery date: 6+ months; Surgery type: Tumor removal; Additional info: Head injury TECHNIQUE: Imaging protocol: Computed tomography of the head without contrast. Radiation optimization: All CT scans at this facility use at least one of these dose optimization techniques: automated exposure control; mA and/or kV adjustment per patient size (includes targeted exams where dose is matched to clinical indication); or iterative reconstruction. COMPARISON: [place] [id number] 11/29/2016 8:29 AM RADIATION DOSE METRICS: Total DLP (mGy-cm): 796.29 FINDINGS: Brain: Unchanged patchy area of encephalomalacia in the left frontal lobe. No hemorrhage, mass effect or midline shift. No evidence of acute, major vascular distribution infarction. Unremarkable white matter. No intra-axial or extra-axial fluid collection seen. Cerebral ventricles: No ventriculomegaly. Paranasal sinuses: Visualized sinuses are unremarkable. No fluid levels. Mastoid air cells: Visualized mastoid air cells are well aerated. Bones/joints: Stable appearance of left frontal craniectomy and reconstruction. Soft tissues: Unremarkable. CT/CT head wo con* [id number] IMPRESSION: No acute intracranial abnormality. Radiation Dose CTDIVOL = (mGy): DLP = 796.29 (mGy-cm)
--- NOTE | 2020-07-18 02:33 | XRR_ITS ---
PROCEDURE INFORMATION: Exam: XR Chest Exam date and time: 07/18/2020 2:50 AM Age: 49 years old Clinical indication: Other: Sepsis TECHNIQUE: Imaging protocol: XR of the chest. Views: 1 view. COMPARISON: CR XR chest 1V portable [id number] 04/25/2019 1:50 AM FINDINGS: Lungs: Unremarkable. No consolidation. Pleural spaces: Unremarkable. No pleural effusion. No pneumothorax. Heart/Mediastinum: Stable cardiomediastinal silhouette. Bones/joints: Cervical spine fusion hardware noted. XR/XR chest 1V portable [id number] IMPRESSION: No evidence of active cardiopulmonary disease.
--- NOTE | 2020-07-18 02:35 | ECG_ITS ---
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 Measurements Intervals Harleigh Rate: 99 P: -1 MS: 166 QRS: -9 QRSD: 89 T: -15 QT: 356 QTc: 458 Interpretive Statements SINUS RHYTHM NONSPECIFIC T-WAVE ABNORMALITY Compared to ECG 04/25/2019 01:49:44 No significant changes Electronically Signed On 07-18-2020 16:01:01 CDT by Marco Champagne M.D. [email or web address]
[2020-07-18 02:41] LABS: Basophils # 0.1 10^3/uL (0.0-0.1); Basophils % 0.3 %; Hematocrit 39.7 % (37.0-47.0); Hemoglobin 12.6 g/dL (11.5-15.3); Lymphocytes # 1.7 10^3/uL (0.8-4.8); Lymphocytes % 6.2 %; Mean Corpuscular HGB Conc 31.7 g/dL (30.0-36.0); Mean Corpuscular Hemoglobin 27.8 pg (28.0-34.0); Mean Corpuscular Volume 87.4 fL (81-99); Mean Platelet Volume 10.7 fL (7.4-10.4); Monocytes # 1.7 10^3/uL (0.2-0.9); Monocytes % 6.2 %; Neutrophils # 23.27 10^3/uL (1.8-7.7); Neutrophils % 86.4 %; Nucleated Red Blood Cells % 0 %; Platelet Count 362 10^3/cmm (130-400); Red Blood Count 4.54 10^6/uL (4.1-5.3); Red Cell Distribution Width 13.5 % (12.1-15.1)
[2020-07-18] MEDS: sodium chloride 0.9% 1,000 ML 999 ML IV ×2 (02:41→02:48)
[2020-07-18] MEDS: hydrocortisone 100 mg/2 mL SDV 150 MG IVP (02:46)
[2020-07-18 02:54] LABS: Lactate (Lactic Acid level) 2.1 mmol/L (0.5-2.2)
[2020-07-18 02:55] LABS: Alanine Aminotransferase 14 U/L (0-33); Albumin Level 4.1 g/dL (3.5-5.2); Alkaline Phosphatase 70 IU/L (35-105); Anion Gap 27.2 (5-19); Aspartate Amino Transferase 14 U/L (0-32); Blood Urea Nitrogen 57 mg/dL (6-20); C Reactive Protein 262.5 mg/L (0.0-4.9); Carbon Dioxide 16 mmol/L (22-29); Chloride 96 mmol/L (98-107); Globulin 2.2 g/dL (1.3-4.6); Glomerular Filtration Rate 12.3 mL/min (90-130); Glucose 165 mg/dL (65-115); Lipase 26 U/L (13-60); Osmolality Calculated 300 mOsm/kg (285-295); Potassium 4.2 mmol/L (3.5-5.1); Sodium 135 mmol/L (136-145); Total Bilirubin 0.6 mg/dL (0.15-1.2); Total Protein 6.3 g/dL (6.6-8.7)
--- NOTE | 2020-07-18 03:07 | ED_ITS ---
HPI - Weakness General: Chief complaint: Weakness Stated complaint: bilat weakness Time Seen by Provider: 07/18/20 02:16 History of Present Illness: HPI Narrative: 49-year-old female with a history of polymyositis. She presents with generalized weakness worsening since at least Sunday. She states that it may have been going on longer than that. She denies any fever. She states she has been septic in the past. Of note, she was getting steroids twice a week until about a week to 1 week and a half ago, and then she had stopped. On arrival, her blood pressure is quite low. She says that Sunday evening, she fell in the bathroom striking her head. She believes she may have passed out at that time MD Complaint: generalized weakness and difficulty walking Duration: constant Associated symptoms: Reports chills, headache(s), nausea and vomiting; Denies chest pain or fever(s) Review of Systems Const: Reports: chills and body aches; Denies: fever(s) Eyes: Reports: blurry vision ENMT: Denies: throat pain, nasal discharge or nasal congestion Card: Denies: chest pain or palpitations Resp: Denies: dyspnea, productive cough or non-productive cough GI: Reports: nausea and vomiting; Denies: abdominal pain, hematemesis, coffee ground emesis or dysphagia : Reports: urinary frequency, dribbling and nocturia Neuro: Reports: headache(s), numbness in extremities, weakness in extremities and involuntary movements; Denies: sensory changes or dizziness PFSH ED PFSH: Medical History Cervical disc disease Cervical radiculopathy Degenerative lumbar disc Facet arthritis, degenerative, lumbar spine Gross hematuria Opioid contract exists Polymyositis PVCs (premature ventricular contractions) Stopped taking metoprolol due to weight gain Recurrent UTI Surgical History Hx of bilateral breast reduction surgery Hx of neck surgery 06/2013 C4 C5 C6 [facility] SPine [facility] Dr. Chris [facility] 12/29/19 C5 C6 C7 Family History Son Cancer BLADDER CANCER Mother Cancer COLON CANCER Diabetes Father Diabetes Social History Smoking and tobacco status: never smoked Alcohol intake: never Adopted: No Caregiver/support person: No Lives independently: No Household members: spouse Marital status: Current occupational status: disabled Physical Exam Const: COMMON NORMALS: patient oriented x3 and alert GENERAL APPEARANCE: cooperative, ill appearing and frail appearing Chest: COMMONS NORMALS: normal inspection of the chest Resp: COMMON NORMALS: No use of accessory muscles and clear to auscultation bilaterally EFFORT & INSPECTION: Yes tachypneic AUSCULTATION: clear to auscultation bilaterally Cardio: COMMON NORMALS: regular rhythm RATE: tachycardic RHYTHM: regular rhythm GI: COMMON NORMALS: Soft to palpation and non-tender PALPATION: Yes Soft to palpation Neuro: COMMON NORMALS: patient oriented x3 SENSORIUM/ORIENTATION: Yes alert Course Vital Signs: Vital signs: Vital Signs Temperature 98.6 F 07/18/20 02:23 Pulse Rate 102 H 07/18/20 04:51 Respiratory Rate 19 H 07/18/20 04:51 Blood Pressure 110/62 07/18/20 04:51 Pulse Oximetry 97 07/18/20 04:51 MDM - Weakness MDM Narrative: Medical decision making narrative: 49-year-old female who is significantly hypotensive on arrival. Blood pressures were 75/45 initially. She has had 3 L of normal saline. She is at 150 mg of hydrocortisone, as she is likely cortisol deficient as well. Her blood pressure has increased significantly appropriately. However, her white blood cell count is 27. Her bicarbonate level is 16. BUN and creatinine are significantly elevated over her baseline. She did note that she laid in the floor for quite a while, possibly for 6 hours before getting up, but her CK level is only 81. Her CRP is significantly elevated as well. Chest x-ray is clear. Head CT is negative. Cause for sepsis is not found. She will go to the ICU. Urinalysis is pending. She has received broad-spectrum antibiotics. Lab Data: Labs: Lab Results 07/18/20 07/18/20 07/18/20 Range/Units 01:55 01:55 01:55 WBC 27.0 H (4.0-10.0) 10^3/ uL RBC 4.54 (4.1-5.3) 10^6/u L Hgb 12.6 (11.5-15.3) g/dL Hct 39.7 (37.0-47.0) % MCV 87.4 (81-99) fL MCH 27.8 L (28.0-34.0) pg MCHC 31.7 (30.0-36.0) g/dL RDW 13.5 (12.1-15.1) % Plt Count 362 (130-400) 10^3/c mm MPV 10.7 H (7.4-10.4) fL Neut % (Auto) 86.4 % Lymph % (Auto) 6.2 % [place] % (Auto) 6.2 % Eos % (Auto) 0.0 % Baso % (Auto) 0.3 % Neut # (Auto) 23.27 H (1.8-7.7) 10^3/u L Lymph # (Auto) 1.7 (0.8-4.8) 10^3/u L [place] # (Auto) 1.7 H (0.2-0.9) 10^3/u L Eos # (Auto) 0.0 (0.0-0.8) 10^3/u L Baso # (Auto) 0.1 (0.0-0.1) 10^3/u L Nucleated RBC % (a uto) 0 % Nucleated RBCs # 0.0 /100WBC Sodium 135 L (136-145) mmol/L Potassium 4.2 (3.5-5.1) mmol/L Chloride 96 L (98-107) mmol/L Carbon Dioxide 16 L (22-29) mmol/L Anion Gap 27.2 H (5-19) BUN 57 H (6-20) mg/dL Creatinine 3.9 H (0.5-0.9) mg/dL GFR Calculation 12.3 L (90-130) mL/min Glucose 165 H (65-115) mg/dL Calculated Osmolal ity 300 H (285-295) mOsm/k g Lactate (0.5-2.2) mmol/L Calcium 8.0 L (8.5-10.5) mg/dL Magnesium 3.0 H (1.7-2.3) mg/dL Total Bilirubin 0.6 (0.15-1.2) mg/dL AST 14 (0-32) U/L ALT 14 (0-33) U/L Alkaline Phosphata se 70 (35-105) IU/L Creatine Kinase 81 (26-192) U/L C-Reactive Protein 262.5 H (0.0-4.9) mg/L Total Protein 6.3 L (6.6-8.7) g/dL Albumin 4.1 (3.5-5.2) g/dL Globulin 2.2 (1.3-4.6) g/dL Lipase 26 (13-60) U/L Serum Ketones (Negative) 07/18/20 07/18/20 Range/Units 01:55 02:30 WBC (4.0-10.0) 10^3/ uL RBC (4.1-5.3) 10^6/u L Hgb (11.5-15.3) g/dL Hct (37.0-47.0) % MCV (81-99) fL MCH (28.0-34.0) pg MCHC (30.0-36.0) g/dL RDW (12.1-15.1) % Plt Count (130-400) 10^3/c mm MPV (7.4-10.4) fL Neut % (Auto) % Lymph % (Auto) % [place] % (Auto) % Eos % (Auto) % Baso % (Auto) % Neut # (Auto) (1.8-7.7) 10^3/u L Lymph # (Auto) (0.8-4.8) 10^3/u L [place] # (Auto) (0.2-0.9) 10^3/u L Eos # (Auto) (0.0-0.8) 10^3/u L Baso # (Auto) (0.0-0.1) 10^3/u L Nucleated RBC % (a uto) % Nucleated RBCs # /100WBC Sodium (136-145) mmol/L Potassium (3.5-5.1) mmol/L Chloride (98-107) mmol/L Carbon Dioxide (22-29) mmol/L Anion Gap (5-19) BUN (6-20) mg/dL Creatinine (0.5-0.9) mg/dL GFR Calculation (90-130) mL/min Glucose (65-115) mg/dL Calculated Osmolal ity (285-295) mOsm/k g Lactate 2.1 (0.5-2.2) mmol/L Calcium (8.5-10.5) mg/dL Magnesium (1.7-2.3) mg/dL Total Bilirubin (0.15-1.2) mg/dL AST (0-32) U/L ALT (0-33) U/L Alkaline Phosphata se (35-105) IU/L Creatine Kinase (26-192) U/L C-Reactive Protein (0.0-4.9) mg/L Total Protein (6.6-8.7) g/dL Albumin (3.5-5.2) g/dL Globulin (1.3-4.6) g/dL Lipase (13-60) U/L Serum Ketones Negative (Negative) Critical Care Time Critical Care Time: Critical Care Time: Yes Total Critical Care Time: 45 Attestation: This case had a high probability of a clinically significant, sudden, or life threatening deterioration of this patient's condition which required my full and direct attention, intervention and personal management. Discharge Plan Discharge Patient Disposition: Admitted As Inpatient Admit Provider: Cortes Thornton Clinical Impression: BLACK (acute kidney injury), Urine retention Sepsis Qualifiers: Sepsis type: sepsis due to unspecified organism Sepsis acute organ dysfunction status: unspecified Qualified Code(s): A41.9 - Sepsis, unspecified organism Condition: Stable Coding Level of Care Code ED Nursing Admin for [facility] Fwd Exam Detailed
[2020-07-18] MEDS: piperacillin-tazobactam 3.375 GM in sodium chloride 0.9% (plus) 50 ML IV ×3 (03:29→20:37)
[2020-07-18 03:35] LABS: Ketone (Acetest) Serum Negative (Negative)
[2020-07-18 03:41] LABS: Creatine Phosphokinase 81 U/L (26-192)
--- NOTE | 2020-07-18 03:43 | P.HP_ITS ---
Providers/Chief Complaint Admitting Physician: Cortes Thornton MD Primary Care Provider: Maliha Tijerina MD Chief Complaint: bilat weakness History of Present Illness Janette Nguyen is a 49 year old female who is steroid-dependent for history of polymyositis, hypothyroidism, hypertension type 2 diabetes presented today with chief complaint of syncopal event. Patient is stating that she takes 70 mg of steroids twice in a week which she has been doing for quite some time but on Sunday reduced her dose to 50 mg. She takes care of her grandchildren, and was noticing some weakness of her arms on Sunday. Around midnight on Sunday she got up to help her granddaughter to go to the bathroom, after she sent her granddaughter to her bed she went to the bathroom to void urine and had an syncopal event. Her checked on her in the morning when he got up. She was found in the bathroom on the floor, in deep sleep & snoring(has history of sleep apnea) with bruise on her nose with mild bleeding. She had 1 episode of emesis as well. Her woke her up, she did not exhibit any signs of stroke, she was not able to recall events of last night, she went to bed and slept until Sunday midnight. These events are very unusual for her that prompted her to come to the hospital for further evaluation. She is denying any chest pain, recent fever, orthopnea, PND, previous syncopal events of note, she has stopped taking metoprolol (on her own due to weight gain) which was prescribed for her PVCs in the past , recently she was given ciprofloxacin for UTI, her antibiotics were switched to amoxicillin for tooth infection. She has no history of seizures, [place], CHF, stroke or cancer When she arrived in the ER she was hypotensive blood pressure 72/48 mmHg, she wa s given normal saline and hydrocortisone stress dose of 50 mg that improved her blood pressure 114/57mmhg, he was awake and alert no recurrence of symptoms, creatinine 3.9, she was unable to void, was endorsing hypogastric fullness, leukocytosis, tachycardic, sepsis, CRP high, she was given broad-spectrum antibiotics, Bustamante catheter placement revealed 1 L normal color urine, patient is endorsing history of syrinx T1-T9 which has recently expanded as per the patient, I have requested spine CT, abdomen pelvis Her EKG is unremarkable, chest x-ray unremarkable Metabolic acidosis with uremia normal ketones and lactic acid requested drug tox and alcohol level Review of Systems Const: Reports: fatigue; Denies: fever(s), chills or body aches Eyes: Denies: change in vision ENMT: Denies: throat pain Card: Reports: syncope; Denies: chest pain Resp: Denies: dyspnea GI: Reports: early satiety and GI cramping; Denies: abdominal pain : Reports: difficulty voiding and oliguria; Denies: flank pain Musc: Denies: neck pain Skin/Breast: Reports: skin tenderness; Denies: rash Neuro: Denies: headache(s) Psych: Reports: sleeping more; Denies: anxiety Endo: Denies: polyuria [place]/Lymph: Denies: easy bruising All/Imm: Denies: urticaria Medications/Allergies Home Medications Medication Instructions Recorded Confirmed Last Taken Type acetaminophen [Tylenol Arthritis 1,300 mg PO BID PRN 03/27/19 06/09/20 04/24/19 History Pain] baclofen 10 mg PO TID PRN 03/27/19 06/09/20 04/24/19 History cyclobenzaprine 5 mg PO TID PRN 03/27/19 06/09/20 04/24/19 History diclofenac sodium [Voltaren-XR] 100 mg PO DAILY 03/27/19 06/09/20 04/24/19 History furosemide 40 mg PO DAILY PRN 03/27/19 06/09/20 04/24/19 History gabapentin 600 mg PO TID 03/27/19 06/09/20 04/24/19 History glimepiride [Amaryl] 2 mg PO DAILY 03/27/19 06/09/20 04/24/19 History ipratropium bromide 2 spray INTRANASAL DAILY PRN 03/27/19 06/09/20 Unknown History levothyroxine 175 mcg PO DAILY 03/27/19 06/09/20 04/24/19 History lidocaine See Rx Instructions .ROUTE .COMPLEX 03/27/19 06/09/20 04/24/19 History liothyronine 5 mcg PO DAILY 03/27/19 06/09/20 04/24/19 History loratadine-pseudoephedrine 1 tab PO DAILY 03/27/19 06/09/20 04/24/19 History [Allergy Relief D12] naproxen sodium [Aleve] 220 mg PO BID PRN 03/27/19 06/09/20 04/24/19 History omeprazole 40 mg PO DAILY 03/27/19 06/09/20 04/24/19 History paroxetine HCl 40 mg PO DAILY 03/27/19 06/09/20 04/24/19 History potassium chloride 20 meq PO DAILY 03/27/19 06/09/20 04/24/19 History prednisone See Rx Instructions .ROUTE .COMPLEX 03/27/19 06/09/20 04/24/19 History prednisone See Rx Instructions .ROUTE .COMPLEX 03/27/19 06/09/20 04/24/19 History zolpidem 10 mg PO BEDTIME PRN 03/27/19 06/09/20 04/24/19 History cam boot #1 ea 02/10/20 06/09/20 Unknown Rx night splint #1 ea 02/10/20 06/09/20 Unknown Rx Sole Supports #1 ea 04/14/20 06/09/20 Unknown Rx nitroglycerin 0.1 mg/hr See Rx Instructions .ROUTE 06/08/20 06/09/20 Unknown Rx transdermal 24 hour patch .COMPLEX #30 patch Allergies Allergy/AdvReac Type Severity Reaction Status Date / Time No Known Allergies Allergy Verified 06/09/20 15:55 PFSH Acute PFSH: Medical History Cervical disc disease Cervical radiculopathy Degenerative lumbar disc Facet arthritis, degenerative, lumbar spine Gross hematuria Opioid contract exists Polymyositis PVCs (premature ventricular contractions) Stopped taking metoprolol due to weight gain Recurrent UTI Surgical History Hx of bilateral breast reduction surgery Hx of neck surgery 06/2013 C4 C5 C6 [facility] SPine [facility] Dr. Chris Adair [facility] Home 12/29/19 C5 C6 C7 Family History Son Cancer BLADDER CANCER Mother Cancer COLON CANCER Diabetes Father Diabetes Social History Smoking and tobacco status: never smoked Alcohol intake: never Adopted: No Caregiver/support person: No Lives independently: No Household members: spouse Marital status: Current occupational status: disabled Vitals/I&O/Wt Last Vital Signs Temp 98.6 F 07/18/20 02:23 Pulse 94 07/18/20 03:42 Resp 16 07/18/20 03:42 BP 98/53 07/18/20 03:42 Pulse Ox 97 07/18/20 03:42 07/17/20 07/17/20 07/18/20 14:59 22:59 06:59 Intake Total 1000 / 1000 Balance 1000 / 1000 Weight last 48 hrs Weight 93.44 kg Physical Exam Narrative: EXAM NARRATIVE: Pleasant elderly female who was sitting comfortably in her bed She was unable to void urine on her own Tachycardic, S1, S2 no signs of heart failure Bilateral breath sounds without adventitious rhonchi or crackles Abdomen soft nontender mild tenderness in hypogastric region with fullness to percussion Lower extremity no edema gangrene ulcer Lower extremity strength 2/5, upper extremity strength 3/5 No active signs of stroke, no neurological deficits Nonfocal exam EOMI, PERRLA She is awake alert cooperative very pleasant during my evaluation No joint swelling Laceration anterior nasal bridge, dried blood without active bleeding noticed Data : 07/18/20 01:55 07/18/20 01:55 Micro: Microbiology 07/18/20 02:30 Blood Culture - Preliminary Blood SPECIMEN COLLECTED 07/18/20 02:15 Blood Culture - Preliminary Blood SPECIMEN COLLECTED A&P Assessment and plan (1) Sepsis: Status: Acute (2) BLACK (acute kidney injury): Status: Acute (3) Urine retention: Status: Acute (4) Syncope and collapse: Status: Acute (5) Metabolic acidosis: Status: Acute Additional A&P Information Sepsis Recently she was treated for UTI with ciprofloxacin which was switched to amoxicillin for dental infection Requested UA, CT abdomen pelvis We will keep her on vancomycin and Zosyn, her chest x-ray is unremarkable no signs of meningitis Keep her on normal saline fluid resuscitation for now Hypotension with improved with fluid resuscitation, not in septic shock We will keep her on stress dose steroids because of her steroid dependency Urinary retention and recent syncope Patient is endorsing history of syrinx T1-T9 I will use Decadron 4 mg 4 times a day which will be equivalent to stress dose regimen, concern for spinal cord compression considering recent syncopal event, urine retention however does not have typical cord compression signs on physical exam She does have history of polymyositis, she takes 70 mg of steroid twice a week, no typical signs of adrenal insufficiency High anion gap metabolic acidosis due to uremia with underlying acute kidney injury This seems secondary to urinary tension, postobstructive Rule out hydronephrosis/pyelonephritis with CT abdomen pelvis, follow-up with UA Currently on broad-spectrum antibiotics and fluid Hold Lasix and baclofen, she takes multiple NSAIDs as well I would hold for now Syncope We will keep her on telemetry for now EKG unremarkable, blood pressure improved with resuscitation currently on stress dose steroids, check TSH, patient endorses history of PVCs for which she was requiring metoprolol in the past, will request echo to rule out obstructive cardiomyopathy No active signs of stroke We will check D-dimer as she is low risk for PE Full code Cardiac diet/consistent carb Moderate sliding scale for type 2 diabetes DVT prophylaxis Heparin Physical therapy evaluation Attestations Medical Necessity Statement*: Anticipating stay in the hospital because more than 2 midnights for management of sepsis and evaluation of syncope Time Spent in Patient Care: (>than 50% of time spent in counselling and/or direct pt care on unit) . 50mins Coding Level of Care Code Acute Support Teacher for [facility] Diagnoses Sepsis A41.9 BLACK (acute kidney injury) N17.9 Urine retention R33.9 Syncope and collapse R55 Metabolic acidosis E87.2
--- NOTE | 2020-07-18 04:11 | CTR_ITS ---
PROCEDURE INFORMATION: Exam: CT Lumbar Spine Without Contrast Exam date and time: 07/18/2020 4:18 AM Age: 49 years old Clinical indication: Injury or trauma; Fall; Blunt trauma (contusions or hematomas); Additional info: Syncope and fall TECHNIQUE: Imaging protocol: Computed tomography images of the lumbar spine without contrast. Radiation optimization: All CT scans at this facility use at least one of these dose optimization techniques: automated exposure control; mA and/or kV adjustment per patient size (includes targeted exams where dose is matched to clinical indication); or iterative reconstruction. COMPARISON: MRI Lumbar Spine w/o [id number] 12/23/2014 8:13 AM RADIATION DOSE METRICS: Total DLP (mGy-cm): 2174.56 FINDINGS: Vertebrae: No acute fracture. Normal alignment. Unchanged 0.7 cm sclerotic focus in the left sacrum, likely representing a bone island. Discs/Spinal canal/Neural foramina: No significant disc protrusion. No severe spinal canal stenosis. No significant neural foraminal narrowing. Soft tissues: Unremarkable. CT/CT lumbar spine wo con* [id number] IMPRESSION: No acute findings. Radiation Dose CTDIVOL = (mGy): DLP = 2174.56 (mGy-cm)
--- NOTE | 2020-07-18 04:11 | CTR_ITS ---
PROCEDURE INFORMATION: Exam: CT Cervical Spine Without Contrast Exam date and time: 07/18/2020 4:18 AM Age: 49 years old Clinical indication: Injury or trauma; Fall; Blunt trauma; Prior surgery; Surgery date: 6+ months; Additional info: Syncope TECHNIQUE: Imaging protocol: Computed tomography images of the cervical spine without contrast. Radiation optimization: All CT scans at this facility use at least one of these dose optimization techniques: automated exposure control; mA and/or kV adjustment per patient size (includes targeted exams where dose is matched to clinical indication); or iterative reconstruction. COMPARISON: CT cervical spin wo con* [id number] 09/22/2019 4:02 PM RADIATION DOSE METRICS: Total DLP (mGy-cm): 796.52 FINDINGS: Bones/joints: No acute fracture. Vertebral body heights are well maintained. No spine curvature seen. There is mild straightening of the normal cervical lordosis, without listhesis. The patient is status post C4-C7 anterior fusion. No evidence of hardware related complication. Discs/Spinal canal/Neural foramina: There is degenerative changes of the cervical spine, manifested by small osteophytes and facet joint arthrosis. No significant disc protrusion. No severe spinal canal stenosis. No significant neural foraminal narrowing. Lungs: Lung apices are normal. Soft tissues: Unremarkable. CT/CT cervical spin wo con* [id number] IMPRESSION: No acute findings. Radiation Dose CTDIVOL = (mGy): DLP = 796.52 (mGy-cm)
--- NOTE | 2020-07-18 04:11 | CTR_ITS ---
PROCEDURE INFORMATION: Exam: CT Thoracic Spine Without Contrast Exam date and time: 07/18/2020 4:18 AM Age: 49 years old Clinical indication: Injury or trauma; Fall; Blunt trauma (contusions or hematomas); Additional info: Syncope and fall TECHNIQUE: Imaging protocol: Computed tomography images of the thoracic spine without contrast. Radiation optimization: All CT scans at this facility use at least one of these dose optimization techniques: automated exposure control; mA and/or kV adjustment per patient size (includes targeted exams where dose is matched to clinical indication); or iterative reconstruction. COMPARISON: No relevant prior studies available. RADIATION DOSE METRICS: Total DLP (mGy-cm): 2223.35 FINDINGS: Vertebrae: No acute fracture. Normal alignment. Discs/Spinal canal/Neural foramina: No significant disc protrusion. No severe spinal canal stenosis. No significant neural foraminal narrowing. Soft tissues: Unremarkable. Mediastinum: A small hiatal hernia is present. CT/CT thoracic spin wo con* [id number] IMPRESSION: No acute injury. Radiation Dose CTDIVOL = (mGy): DLP = 2223.35 (mGy-cm)
[2020-07-18] MEDS: vancomycin 1,000 MG in sodium chloride 0.9% 250 ML 250 MG IV ×2 (04:18→07:51)
--- NOTE | 2020-07-18 04:18 | CTR_ITS ---
PROCEDURE INFORMATION: Exam: CT Abdomen And Pelvis Without Contrast Exam date and time: 07/18/2020 4:31 AM Age: 49 years old Clinical indication: Vomiting; Prior surgery; Surgery date: 6+ months; Surgery type: Gb; Additional info: Vomiting sepsis TECHNIQUE: Imaging protocol: Computed tomography of the abdomen and pelvis without contrast. Radiation optimization: All CT scans at this facility use at least one of these dose optimization techniques: automated exposure control; mA and/or kV adjustment per patient size (includes targeted exams where dose is matched to clinical indication); or iterative reconstruction. COMPARISON: CT kidney stone [id number] 03/27/2019 12:17 PM RADIATION DOSE METRICS: Total DLP (mGy-cm): 1501.98 FINDINGS: Mediastinal space: A small hiatal hernia is present. Liver: The liver is diffusely decreased in density, compatible with hepatic steatosis. There is focal areas of increased attenuation in the right hepatic lobe, and a focal area of decreased attenuation adjacent to the falciform ligament, which may represent a combination of focal fatty infiltration and fat sparing. Gallbladder and bile ducts: The gallbladder has been surgically removed. No intra or extrahepatic biliary ductal dilatation seen. Pancreas: Normal. No ductal dilation. Spleen: Normal. No splenomegaly. Adrenal glands: Normal. No mass. Kidneys and ureters: Normal. No hydronephrosis. Stomach and bowel: There is diffuse thickening of the distal transverse, descending and sigmoid colon wall, in association with stranding of the surrounding fat. A few scattered colonic diverticuli noted. There is a moderate amount of stool within the colon and scattered air-fluid levels. Multiple non abnormally distended fluid filled loops of small bowel seen. A duodenal diverticulum is incidentally noted. Appendix: No evidence of appendicitis. Intraperitoneal space: Trace free fluid noted in the pelvis. No free air. Vasculature: Unremarkable. No abdominal aortic aneurysm. Lymph nodes: Unremarkable. No enlarged lymph nodes. Urinary bladder: The urinary bladder is decompressed with a Bustamante catheter in place. Reproductive: Unremarkable as visualized. Bones/joints: Unremarkable. No acute fracture. Soft tissues: A small fat containing umbilical hernia is present. CT/CT abdomen pelvis wo con [id number] IMPRESSION: 1. Inflammatory changes of the distal transverse, descending and sigmoid colon wall, consistent with colitis. Infectious and inflammatory etiologies should be considered. 2. Diffuse fatty liver infiltration with scattered areas of increased and decreased echogenicity which may represent focal fat infiltration and sparing. Further evaluation with contrast enhanced abdomen MRI in a non emergent basis is recommended. Radiation Dose CTDIVOL = (mGy): DLP = 1501.98 (mGy-cm)
[2020-07-18 05:08] LABS: Add Urine Culture? No; Add Urine Microscopic? YES; Amorphous Sediment Urine 1+ /hpf; Bacteria Urine 1+ /hpf; Bilirubin Urine 1+ (Negative); Blood Urine Neg (Negative); Glucose Urine UA Norm (Normal); Ketones Urine Negative (Negative); Leukocyte Esterase Urine Negative (Negative); Nitrate Urine Negative (Negative); Protein Urine Trace (Negative); RBC Urine 0-4 /hpf (0-2); Squamous Epithelial Cell Urine 0-4 /hpf (0-5); Urine Color Yellow (Yellow); Urobilinogen Urine 1 mg/dL (Negative); WBC Urine 0-4 /hpf (0-5); pH Urine 5 (5-7)
--- NOTE | 2020-07-18 05:52 | USCV_ITS ---
Janette Nguyen Age: 49 Gender: F : 1970 Exam Date: 07/18/2020 07:41 Ordering Phys: Cortes Thornton MD Technologist: Mohini Simental Exam Location: [facility] – [place] Indication: Syncope BP: 96 / 57 HR: 98 Rhythm: Sinus Technical Quality: Fair MEASUREMENTS (Male / Female) Normal Values 2D ECHO LV Diastolic Diameter PLAX 3.3 cm 4.2 - 5.9 / 3.9 - 5.3 cm LV Systolic Diameter PLAX 2.1 cm LV Chamber Size 3.6 cm IVS Diastolic Thickness 1.2 cm 0.6 - 1.0 / 0.6 - 0.9 cm IVS Systolic Thickness 1.0 cm LVPW Diastolic Thickness 0.9 cm 0.6 - 1.0 / 0.6 - 0.9 cm LVPW Systolic Thickness 1.4 cm RV Chamber Size 2.3 cm LVOT Diameter 2.1 cm LV Ejection Fraction 2D Teich 68.5 % LV Ejection Fraction MOD 2C 85.3 % LV Ejection Fraction 2C AL 85.7 % LA Diameter 2.8 cm LA Width 2.5 cm LA Height 4.0 cm RA Width 1.8 cm RA Height 4.2 cm Aorta at Sinotubular Diameter 3.3 cm M-MODE LV Diastolic Diameter MM 5.6 cm 4.2 - 5.9 / 3.9 - 5.3 cm LV Systolic Diameter MM 2.9 cm LV Ejection Fraction MM Teich 78.7 % IVS Diastolic Thickness MM 0.5 cm 0.6 - 1.0 / 0.6 - 0.9 cm IVS Systolic Thickness MM 1.3 cm LVPW Diastolic Thickness MM 0.8 cm 0.6 - 1.0 / 0.6 - 0.9 cm LVPW Systolic Thickness MM 1.1 cm RV Diastolic Diameter MM 1.2 cm Aortic Annulus Diameter 3.6 cm LA Ao Ratio MM 0.9 MV E Point Septal Separation 0.4 cm DOPPLER AV Peak Velocity 188.0 cm/s LVOT Peak Velocity 145.0 cm/s AV Area Cont Eq vti 2.7 cm squared AV Area Cont Eq pk 2.6 cm squared MV Area PHT 2.5 cm squared Mitral E to A Ratio 0.9 MV E' Velocity 49.0 cm/s Mitral E to MV E' Ratio 8.0 Mitral E to LV E' Lateral Ratio 7.1 Mitral E to LV E' Septal Ratio 9.2 TV Peak E Velocity 73.0 cm/s Right Atrial Pressure 3.0 mmHg PV Peak Velocity 111.0 cm/s RV Acceleration Time 0.1 s RV Ejection Time 0.2 s RV AcT/ET 0.5 FINDINGS Left Ventricle Normal left ventricular size. LV systolic function is normal with EF of 55-60%. No regional wall motion abnormalities. Normal diastolic function Right Ventricle The right ventricle is normal in size and function. Right Atrium The right atrium is normal in size. Left Atrium The left atrium is normal in size. Mitral Valve Structurally normal mitral valve without significant stenosis or prolapse. There is mild mitral regurgitation. Aortic Valve Structurally normal aortic valve without significant sclerosis or stenosis. There is no aortic regurgitation. Tricuspid Valve Structurally normal tricuspid valve without significant stenosis or regurgitation. Insufficient TR jet to calculate RVSP Pulmonic Valve Structurally normal pulmonic valve without significant stenosis. There is no pulmonic regurgitation. Pericardium Normal pericardium without effusion. Aorta Normal ascending aorta dimension. CONCLUSIONS LV systolic function is normal with EF of 55-60% Diastolic function is normal Mild mitral regurgitation No comparison studies are available Marco Champagne MD (Electronically Signed) Final Date: 18 Jul 2020 12:11 S
[2020-07-18] MEDS: dexamethasone 4 mg/mL INJ IVP ×4 (06:22→23:51)
[2020-07-18] MEDS: heparin 5,000 unit/mL INJ 1 mL 5000 UNIT SUBCUT ×3 (06:22→21:16)
[2020-07-18] MEDS: sodium chloride 0.9% 1,000 ML 75 ML IV ×2 (06:23→20:37)
[2020-07-18 07:21] LABS: Procalcitonin 6.27 ng/mL (0-0.5); Thyroid Stimulating Hormone 0.32 uIU/mL (0.27-4.20)
[2020-07-18 07:34] LABS: Glucose Point of Care 151 mg/dL (70-110)
[2020-07-18 07:36] LABS: Alcohol Level < 10 mg/dL (0-10)
[2020-07-18] MEDS: levothyroxine 175 mcg Tablet PO (07:52)
[2020-07-18] MEDS: pantoprazole DR 40 mg Tablet PO (07:52)
--- NOTE | 2020-07-18 09:16 | P.PN_ITS ---
Subjective Subjective: Interval history: She is feeling better. She was feeling very weak, sore all over. Says she has been having pain in her right ankle and has not been able to bear weight. Denies having diarrhea currently, however, states that she has issues with constipation. She does have intermittent diarrhea sometimes, but constipation predominates. Reports past history of colitis about a year ago, subsequently was scheduled to have a colonoscopy, but not much could be visualized due to inadequate prep at that time. Has had a colonoscopy prior to that as well though. States ivett etimes has some blood with the stool, but reports having hemorrhoids. Vitals/I&O/Wt Last Vital Signs Temp 98.9 F 07/18/20 06:15 Pulse 100 07/18/20 08:00 Resp 24 H 07/18/20 08:00 BP 94/61 07/18/20 08:00 Pulse Ox 97 07/18/20 08:00 07/17/20 07/18/20 07/18/20 22:59 06:59 14:59 Intake Total 2300 / 2300 240 / 240 Output Total 900 / 900 625 / 625 Balance 1400 / 1400 -385 / -385 Weight last 48 hrs Weight 99.473 kg Weight 93.44 kg Physical Exam Narrative: EXAM NARRATIVE: at the bedside. Const: COMMON NORMALS: no acute distress and patient oriented x3 HENMT: COMMON NORMALS: oropharynx normal OTHER: Bruising over nasal bridge. Neck/C-Spine: COMMON NORMALS: no JVD Resp: COMMON NORMALS: normal respiratory effort and clear to auscultation shola aterally AUSCULTATION: clear to auscultation bilaterally Cardio: COMMON NORMALS: no JVD, regular rhythm, S1 normal heart sound present, S2 normal heart sound present and No murmurs present (Cardio) RHYTHM: regular rhythm HEART SOUNDS: S1 normal heart sound present and S2 normal heart sound present GI: COMMON NORMALS: Normal to inspection, nondistended, normoactive bowel sounds present, Soft to palpation and non-tender PALPATION: Yes Soft to palpation Extremity: COMMON NORMALS: no joint enlargement RIGHT LOWER EXTREMITY: Yes foot & digits (Minute if any ankle swelling. She does report tenderness on palpation) Neuro: COMMON NORMALS: patient oriented x3 and moves all extremities Skin: COMMON NORMALS: no rashes or lesions noted GENERAL SKIN EXAM: no rashes or lesions noted Urinary Catheter Management^: Bustamante: Cath Placed During This Visit: yes Reason for Continuing Indwelling Catheter: Accurate Measurement of Urinary Output in Critically Ill Patients Urinary Catheter Date of Insertion: 07/18/20 Urinary Catheter Time of Insertion: 04:35 Data : 07/18/20 01:55 07/18/20 01:55 Micro: Microbiology 07/18/20 02:30 Blood Culture - Preliminary Blood SPECIMEN COLLECTED 07/18/20 02:15 Blood Culture - Preliminary Blood SPECIMEN COLLECTED A&P Assessment and plan (1) Sepsis: Continue empiric antibiotic treatment with Zosyn. Follow-up blood cultures, urine culture. She reports recent UTI, however, urinalysis not impressive. Discussed with her and her low possibility that urinalysis may be affected by recent antibiotics, however, the overall likelihood of UTI appears less. She has no symptoms. No sign of ascending UTI or pyelonephritis as discussed with her and her . Appears to have colitis noted on CT scan. History of polymyositis. CRP is elevated quite high at 256. Discussed with her at this time suspicion is for infectious colitis, however, possibility may be of inflammatory bowel disease as well. She reports at least one prior episode of colitis, which could not be followed up adequately by colonoscopy at the time due to inadequate prep. This seems was not repeated. She has not had diarrhea, but does have issues with constipation. Air-fluid levels noted on CT. Stool studies ordered for when she does have a bowel movement. Discussed with her regarding repeating colonoscopy after she recovers, and she will seek this through her PCP. At this time continue steroids for adrenal insufficiency. Hypotensive on presentation. Appears to responded to fluid resuscitation, restarting steroid. Blood pressure is currently somewhat soft still, but better. Status: Acute Qualifiers: Sepsis acute organ dysfunction status: unspecified Sepsis type: sepsis due to unspecified organism Qualified Code(s): A41.9 - Sepsis, unspecified organism (2) BLACK (acute kidney injury): Worsening of acute kidney injury, creatinine up to 3.9. Hold NSAIDs. Continue decompression with Bustamante due to concern for urinary retention, although no hydronephrosis noted on CT. Hold Lasix. Receiving fluid challenge with IVF. Reassess renal function. Status: Acute (3) Urine retention: Continue Bustamante for now. Hold muscle relaxers. CT thoracic, L-spine without signs of cord compression. Status: Acute (4) Syncope and collapse: Secondary to hypotension, adrenal insufficiency, sepsis. BP 72/45 at pre sentation in ER. CT head unremarkable. Status: Acute (5) Metabolic acidosis: Lactate borderline at 2.1. Acute kidney injury. Status: Acute (6) Adrenal insufficiency: Continue Decadron. Monitor blood pressures. Will require steroid taper. Status: Acute (7) Colitis: As above. Will need follow-up colonoscopy. Status: Acute Additional A&P Information Right ankle pain: Possible sprain, assess by x-ray as she cannot bear weight. Fatty liver infiltration: Assess by MRI on nonemergent basis. DM2 History of syrinx T1-T9 Reconcile home med list Full code Cardiac diet/consistent carb Moderate sliding scale for type 2 diabetes DVT prophylaxis Heparin Physical therapy evaluation Attestations Medical Necessity Statement*: Continue admission for assessment of management of sepsis, colitis, adrenal insufficiency, improving hypotension, acute kidney injury with history of polymyositis, chronic steroid use and additional comorbidities. Coding Level of Care Code Acute Literacy Consultant for [facility] Pallavid Diagnoses Sepsis A41.9 Sepsis acute organ dysfunction status: unspecified Sepsis type: sepsis due to unspecified organism BLACK (acute kidney injury) N17.9 Urine retention R33.9 Syncope and collapse R55 Metabolic acidosis E87.2 Adrenal insufficiency E27.40 Colitis K52.9
--- NOTE | 2020-07-18 09:17 | XRR_ITS ---
PROCEDURE INFORMATION: Exam: XR Right Ankle Exam date and time: 07/18/2020 9:18 AM Age: 49 years old Clinical indication: Injury or trauma; Fall; Blunt trauma; Ankle; Right; Additional info: Pain, can't bear weight TECHNIQUE: Imaging protocol: XR Right ankle. Views: 3 or more views. COMPARISON: No relevant prior studies available. FINDINGS: Bones/joints: There is a nondisplaced oblique fracture through the distal fibula/lateral malleolus. Small calcaneal spur. Soft tissues: Edema and/or hematoma is present in the soft tissues adjacent to the fracture site. XR/XR ankle RT min 3V* [id number] IMPRESSION: There is a nondisplaced oblique fracture through the distal fibula.
--- NOTE | 2020-07-18 09:46 | PC.PHAR ---
pt states she takes care of her own medications-pt states she is taking suboxone 1.5 films at hs-pt states she fills this medication at [facility] in [place] home ar-called they are closed no way to verify [id number] last time filled-pt state she has tramadol but hasnt taken it-pt states she is only taking 50mg of prednisone twice a week at this time bit states she has the 20mg to go with it if she needs it-pt states she is still taking liothyronine 5mcg daily ext med history shows last filled on 11/27/2019 90d/s -notes are made in the pharmacy comment section
[2020-07-18 11:48] LABS: Glucose Point of Care 198 mg/dL (70-110)
[2020-07-18 11:58] LABS: Amphetamines Screen Urine Negative (Negative); Barbiturates Screen Urine Negative (Negative); Benzodiazepines Screen Urine Negative (Negative); Cocaine Screen Urine Negative (Negative); Opiate Screen Urine Negative (Negative); PCP Screen Urine Negative (Negative); THC Screen Urine Positive (Negative)
[2020-07-18] MEDS: bisacodyl 10 mg Supp PR (13:13)
--- NOTE | 2020-07-18 13:27 | PC.NURSE ---
Patient has been sitting in room alert and oriented x 4. She has been up to bath room once this shift without success. Patient requested suppository and requested to insert it herself. Suppository inserted by patient.
[2020-07-18 16:52] LABS: Anion Gap 17.2 (5-19); Blood Urea Nitrogen 41 mg/dL (6-20); Calcium 7.4 mg/dL (8.5-10.5); Carbon Dioxide 15 mmol/L (22-29); Chloride 107 mmol/L (98-107); Glomerular Filtration Rate 31.9 mL/min (90-130); Glucose 186 mg/dL (65-115); Osmolality Calculated 295 mOsm/kg (285-295); Potassium 4.2 mmol/L (3.5-5.1); Sodium 135 mmol/L (136-145)
[2020-07-18 18:17] LABS: Glucose Point of Care 188 mg/dL (70-110)
[2020-07-18 22:05] LABS: Glucose Point of Care 162 mg/dL (70-110)
[2020-07-19] VITALS (14 sets, daily range): BP systolic 106–155; BP diastolic 62–84; PULSE 75–103; RESP 13–20; TEMP 36.4–37.1; O2SAT 93–100
[2020-07-19] MEDS: piperacillin-tazobactam 3.375 GM in sodium chloride 0.9% (plus) 50 ML IV ×3 (03:53→21:25)
[2020-07-19] MEDS: dexamethasone 4 mg/mL INJ IVP (05:38)
[2020-07-19] MEDS: heparin 5,000 unit/mL INJ 1 mL 5000 UNIT SUBCUT ×3 (05:42→21:27)
[2020-07-19 06:18] LABS: Basophils # 0.1 10^3/uL (0.0-0.1); Basophils % 0.4 %; Eosinophils # 0.1 10^3/uL (0.0-0.8); Eosinophils % 0.7 %; Hematocrit 32.7 % (37.0-47.0); Hemoglobin 10.6 g/dL (11.5-15.3); Lymphocytes # 0.6 10^3/uL (0.8-4.8); Mean Corpuscular HGB Conc 32.4 g/dL (30.0-36.0); Mean Corpuscular Hemoglobin 28.3 pg (28.0-34.0); Mean Corpuscular Volume 87.2 fL (81-99); Mean Platelet Volume 10.9 fL (7.4-10.4); Monocytes # 1.5 10^3/uL (0.2-0.9); Monocytes % 10.2 %; Neutrophils % 82.6 %; Nucleated Red Blood Cells % 0 %; Platelet Count 256 10^3/cmm (130-400); Red Blood Count 3.75 10^6/uL (4.1-5.3); White Blood Count 15.1 10^3/uL (4.0-10.0)
[2020-07-19 06:34] LABS: Anion Gap 16.2 (5-19); Blood Urea Nitrogen 29 mg/dL (6-20); Carbon Dioxide 17 mmol/L (22-29); Chloride 109 mmol/L (98-107); Glomerular Filtration Rate 58.9 mL/min (90-130); Glucose 182 mg/dL (65-115); Osmolality Calculated 296 mOsm/kg (285-295); Potassium 4.2 mmol/L (3.5-5.1); Sodium 138 mmol/L (136-145)
[2020-07-19 07:37] LABS: Glucose Point of Care 178 mg/dL (70-110)
--- NOTE | 2020-07-19 09:10 | P.PN_ITS ---
Subjective Subjective: Interval history: She is doing better. She states she could not sleep at night. He did not have her CPAP, prefer not to have the hospital CPAP set up for her. She states otherwise she is doing all right. She has not had any diarrhea. She tried to have a bowel movement which was like a small pellet. She is requesting for her medications to be restarted including nortriptyline, gabapentin, Ambien. Vitals/I&O/Wt Last Vital Signs Temp 98.4 F 07/19/20 04:00 Pulse 80 07/19/20 06:00 Resp 18 07/19/20 06:00 BP 132/74 07/19/20 06:00 Pulse Ox 97 07/19/20 06:00 07/18/20 07/19/20 07/19/20 22:59 06:59 14:59 Intake Total 1750 / 2600 300 / 2900 Output Total 1925 / 2550 975 / 3525 Balance -175 / 50 -675 / -625 Weight last 48 hrs Weight 96.978 kg Weight 99.473 kg Weight 93.44 kg Physical Exam Const: COMMON NORMALS: no acute distress and patient oriented x3 HENMT: COMMON NORMALS: oropharynx normal OTHER: Bruising over nasal bridge. Neck/C-Spine: COMMON NORMALS: no JVD Resp: COMMON NORMALS: normal respiratory effort and clear to auscultation bilaterally AUSCULTATION: clear to auscultation bilaterally Cardio: COMMON NORMALS: no JVD, regular rhythm, S1 normal heart sound present, S2 normal heart sound present and No murmurs present (Cardio) RHYTHM: regular rhythm HEART SOUNDS: S1 normal heart sound present and S2 normal heart sound present GI: COMMON NORMALS: Normal to inspection, nondistended, normoactive bowel sounds present, Soft to palpation and non-tender PALPATION: Yes Soft to palpation Extremity: OTHER: R ankle swelling, lat bruise, tender Neuro: COMMON NORMALS: patient oriented x3 and moves all extremities Skin: COMMON NORMALS: no rashes or lesions noted GENERAL SKIN EXAM: no rashes or lesions noted Urinary Catheter Management^: Bustamante: Cath Placed During This Visit: yes Reason for Continuing Indwelling Catheter: Accurate Measurement of Urinary Output in Critically Ill Patients Urinary Catheter Date of Insertion: 07/18/20 Urinary Catheter Time of Insertion: 04:35 Data : 07/19/20 05:48 05/31/21 05:48 Micro: Microbiology 07/18/20 04:33 Urine Culture - Preliminary Urine Catheterized 07/18/20 02:15 Blood Culture - Preliminary Blood NEGATIVE TO DATE 07/18/20 02:30 Blood Culture - Preliminary Blood NEGATIVE TO DATE 07/18/20 20:50 Stool Lactoferrin - Final Stool - Stool Aspirate C.difficile Toxin B Gene (PCR) - Final Occult Blood (FIT) - Final A&P Assessment and plan (1) Sepsis: Sepsis appears possibly resolving, tachycardia resolved, remains afebrile, leukocytosis persists but with decreased to 15,000. She had only a small pellet stool last night. Provided a sample, although was not diarrhea. C. difficile was negative. Bacterial and parasite panel is pending. Lactoferrin positive. Hemoccult positive. In case developed diarrhea, will obtain a sample. With history of constipation, discussed an enema but first states would like to try some lactulose. Tried suppository last night but without success. Colitis is suspected source of her sepsis. For now continue Zosyn. She has history of chronic/recurrent UTI for which she takes chronic suppressive dose of ciprofloxacin as per her urologist. However, at this time does not appear to have active urinary tract infection. No sign of ascending UTI or pyelonephritis on CT. Urine culture preliminary without growth. For now Cipro hold, resume after completes inpatient antibiotic course. Follow-up with urology. Discussed with her regarding repeating colonoscopy after she recovers, and she will seek this through her PCP. Acute adrenal insufficiency with improvement, blood pressure appears to im proved. Currently on IV Decadron. Will taper down dosing. Status: Acute Qualifiers: Sepsis acute organ dysfunction status: unspecified Sepsis type: sepsis due to unspecified organism Qualified Code(s): A41.9 - Sepsis, unspecified organism (2) BLACK (acute kidney injury): Improving acute kidney injury. Blood pressure is improved. Will DC IV fluids at this time. She is eating and drinking, monitor renal function. Monitor blood pressures with tapering off IV steroids. Hold NSAIDs. Will attempt a voiding trial. Hold Lasix. Status: Acute (3) Urine retention: Voiding trial. Hold muscle relaxers. CT thoracic, L-spine without signs of cord compression. Status: Acute (4) Syncope and collapse: Secondary to hypotension, adrenal insufficiency, sepsis. BP 72/45 at presentation in ER. Hypotension resolved. PT evaluation. CT head unremarkable. Status: Acute (5) Metabolic acidosis: Metabolic acidosis appears to be improving, anion gap down from 27.2 to 16.2. Bicarbonate improved up to 17. Sepsis resolving. Hypotension resolved. Acute kidney injury improving. Status: Acute (6) Adrenal insufficiency: Decrease dose of Decadron. Monitor blood pressures. Will require steroid taper. Status: Acute (7) Colitis: As above. Pending stool studies. Will need follow-up colonoscopy. Status: Acute (8) Fibula fracture: Oblique nondisplaced fracture of therapy right fibula at the lateral malleolus. Has had difficulty weightbearing. We will ask PT to set up with a boot. Will need follow-up with orthopedics will see her in the hospital tomorrow. Status: Acute Additional A&P Information Fatty liver infiltration: Assess by MRI on nonemergent basis. DM2 History of syrinx T1-T9 Polymyositis: On chronic steroids, weaned off recently. CK on presentation not elevated. Resume nortriptyline, gabapentin. Resume home medications. Full code Cardiac diet/consistent carb Moderate sliding scale for type 2 diabetes DVT prophylaxis Heparin Physical therapy evaluation Attestations Medical Necessity Statement*: Continue admission for taper off IV stress dose steroids with adrenal sufficiency, treatment of resolving sepsis, improving acute kidney injury, colitis, fibula fracture. Disposition planning. Coding Level of Care Code Acute Coffee Urn Attendant for [facility] Fwd Diagnoses Sepsis A41.9 Sepsis acute organ dysfunction status: unspecified Sepsis type: sepsis due to unspecified organism BLACK (acute kidney injury) N17.9 Urine retention R33.9 Syncope and collapse R55 Metabolic acidosis E87.2 Adrenal insufficiency E27.40 Colitis K52.9 Fibula fracture S82.409A
[2020-07-19] MEDS: levothyroxine 175 mcg Tablet PO (09:41)
[2020-07-19] MEDS: pantoprazole DR 40 mg Tablet PO (09:41)
[2020-07-19 11:17] LABS: Glucose Point of Care 197 mg/dL (70-110)
[2020-07-19] MEDS: lactulose oral liq 20 gm/30 mL UDC PO ×2 (11:21→21:26)
[2020-07-19] MEDS: sodium chloride 0.9% 1,000 ML 75 ML IV (11:22)
--- NOTE | 2020-07-19 11:33 | PC.NURSE ---
Bustamante was removed at 1130
--- NOTE | 2020-07-19 12:03 | PC.NURSE ---
Patient was transferred to [facility] via wheelchair at 1200. All patient belongings were packed by herself and . Tolerated well.
[2020-07-19] MEDS: dexamethasone 4 mg/mL INJ 2 MG IVP ×2 (13:39→22:46)
[2020-07-19 16:38] LABS: Glucose Point of Care 120 mg/dL (70-110)
[2020-07-19] MEDS: atorvastatin 40 mg Tablet 20 MG PO (17:28)
[2020-07-19 20:52] LABS: Glucose Point of Care 168 mg/dL (70-110)
[2020-07-19] MEDS: fluticasone nasal spray 16gm Btl 2 SPRAY INTRANASAL (21:26)
[2020-07-19] MEDS: nortriptyline 25 mg Capsule 150 MG PO (21:27)
[2020-07-19] MEDS: gabapentin 300 mg Capsule 600 MG PO (21:27)
[2020-07-20 04:00] VITALS: BP 136/77; PULSE 103; RESP 18; TEMP 36.7; O2SAT 98
[2020-07-20] MEDS: piperacillin-tazobactam 3.375 GM in sodium chloride 0.9% (plus) 50 ML IV ×2 (04:58→11:01)
[2020-07-20] MEDS: heparin 5,000 unit/mL INJ 1 mL 5000 UNIT SUBCUT ×2 (05:00→13:52)
[2020-07-20] MEDS: dexamethasone 4 mg/mL INJ 2 MG IVP ×2 (06:45→14:07)
[2020-07-20 06:49] LABS: Glucose Point of Care 142 mg/dL (70-110)
[2020-07-20 07:16] VITALS: BP 113/73; PULSE 90; RESP 16; TEMP 37; O2SAT 94
[2020-07-20] MEDS: levothyroxine 175 mcg Tablet PO (08:22)
[2020-07-20] MEDS: pantoprazole DR 40 mg Tablet PO (08:22)
[2020-07-20 08:55] LABS: Basophils % 0.1 %; Eosinophils % 0.1 %; Hematocrit 32.1 % (37.0-47.0); Hemoglobin 9.9 g/dL (11.5-15.3); Lymphocytes # 0.7 10^3/uL (0.8-4.8); Mean Corpuscular HGB Conc 30.8 g/dL (30.0-36.0); Mean Corpuscular Hemoglobin 27.6 pg (28.0-34.0); Mean Corpuscular Volume 89.4 fL (81-99); Mean Platelet Volume 11.1 fL (7.4-10.4); Monocytes # 1.2 10^3/uL (0.2-0.9); Monocytes % 10.5 %; Neutrophils # 9.08 10^3/uL (1.8-7.7); Neutrophils % 82.7 %; Nucleated Red Blood Cells % 0.2 %; Platelet Count 248 10^3/cmm (130-400); Red Blood Count 3.59 10^6/uL (4.1-5.3); Red Cell Distribution Width 14.1 % (12.1-15.1)
[2020-07-20 09:09] LABS: Alanine Aminotransferase 14 U/L (0-33); Albumin Level 3.1 g/dL (3.5-5.2); Alkaline Phosphatase 68 IU/L (35-105); Anion Gap 15.5 (5-19); Aspartate Amino Transferase 17 U/L (0-32); Blood Urea Nitrogen 22 mg/dL (6-20); Calcium 8.3 mg/dL (8.5-10.5); Carbon Dioxide 21 mmol/L (22-29); Chloride 105 mmol/L (98-107); Globulin 2.6 g/dL (1.3-4.6); Glomerular Filtration Rate 76.2 mL/min (90-130); Glucose 206 mg/dL (65-115); Osmolality Calculated 293 mOsm/kg (285-295); Potassium 4.5 mmol/L (3.5-5.1); Sodium 137 mmol/L (136-145); Total Bilirubin 0.4 mg/dL (0.15-1.2); Total Protein 5.7 g/dL (6.6-8.7)
[2020-07-20 10:06] LABS: Slide Review Slide Review Perform
[2020-07-20] MEDS: TRAMadol 50 mg Tablet PO (11:01)
[2020-07-20 11:03] VITALS: BP 124/77; PULSE 86; RESP 16; TEMP 36.7; O2SAT 98
--- NOTE | 2020-07-20 11:32 | PM.CONSULT ---
Providers/Reason For Consult Consulting Physician/Specialty*: Mohini Barber MD Reason for Consult*: Right ankle fracture Attending Physician: Isaiah Lopes MD Primary Care Provider: Maliha Tijerina MD History of Present Illness History of Present Illness Janette Nguyen is a 49 year old female who presented to the emergency department after a fall at home. The patient complained of generalized weakness which worsened since several days prior to her admission. She denied any fever, but she does note she has a history of sepsis in the past. She also notes that she has significant peripheral neuropathy. She had been receiving steroids twice a week until about a week or so ago and then she stopped. She fell in the bathroom and struck her head and believes she may have passed out. Additionally, from an orthopedic, podiatric, perspective, the patient has been treating with Dr. Montoya for left foot issues. She describes this as a plantar fascia rupture. In fact, she notes she has an appointment with him tomorrow. Review of Systems Const: Reports: chills, body aches and fatigue; Denies: fever(s) Eyes: Reports: blurry vision; Denies: change in vision ENMT: Denies: throat pain, nasal discharge or nasal congestion Card: Reports: syncope; Denies: chest pain or palpitations Resp: Denies: dyspnea, productive cough or non-productive cough GI: Reports: nausea, vomiting, early satiety and GI cramping; Denies: abdominal pain, hematemesis, coffee ground emesis or dysphagia : Reports: difficulty voiding, urinary frequency, dribbling, nocturia and oliguria; Denies: flank pain Musc: Denies: neck pain Skin/Breast: Reports: skin tenderness; Denies: rash Neuro: Reports: headache(s), numbness in extremities, weakness in extremities and involuntary movements; Denies: sensory changes or dizziness Psych: Reports: sleeping more; Denies: anxiety Endo: Denies: polyuria Juarez/Lymph: Denies: easy bruising All/Imm: Denies: urticaria Meds/Allergies Home Medications and Allergies Home Medications Medication Instructions Recorded Confirmed Last Taken Type acetaminophen [Tylenol Arthritis 1,300 mg PO PRN 03/27/19 07/18/20 04/24/19 History Pain] baclofen 10 mg PO BEDTIME 03/27/19 07/18/20 04/24/19 History diclofenac sodium [Voltaren-XR] 100 mg PO BEDTIME 03/27/19 07/18/20 04/24/19 History furosemide 40 mg PO DAILY 03/27/19 07/18/20 04/24/19 History gabapentin 600 - 1,200 mg PO BEDTIME 03/27/19 07/18/20 04/24/19 History glimepiride [Amaryl] 2 mg PO DAILY 03/27/19 07/18/20 04/24/19 History lidocaine See Rx Instructions .ROUTE .COMPLEX 03/27/19 07/18/20 04/24/19 History liothyronine 5 mcg PO DAILY 03/27/19 07/18/20 04/24/19 History loratadine-pseudoephedrine 1 tab PO DAILY PRN 03/27/19 07/18/20 04/24/19 History [Claritin-D 12 Hour] naproxen sodium [Aleve] 440 mg PO QPM 03/27/19 07/18/20 04/24/19 History omeprazole 40 mg PO DAILY 03/27/19 07/18/20 04/24/19 History potassium chloride 20 meq PO DAILY 03/27/19 07/18/20 04/24/19 History prednisone See Rx Instructions .ROUTE .COMPLEX 03/27/19 07/18/20 04/24/19 History prednisone See Rx Instructions .ROUTE .COMPLEX 03/27/19 07/18/20 07/11/20 History zolpidem 10 mg PO BEDTIME PRN 03/27/19 07/18/20 04/24/19 History cam boot #1 ea 02/10/20 07/18/20 Unknown Rx night splint #1 ea 02/10/20 07/18/20 Unknown Rx Sole Supports #1 ea 04/14/20 07/18/20 Unknown Rx nitroglycerin 0.1 mg/hr See Rx Instructions .ROUTE 06/08/20 07/18/20 Unknown Rx transdermal 24 hour patch .COMPLEX #30 patch albuterol sulfate [ProAir HFA] 2 puff INHALATION Q4H PRN 07/18/20 07/18/20 Unknown History amoxicillin 500 mg PO TID 07/18/20 07/18/20 Unknown History buprenorphine-naloxone [Suboxone] 1.5 film BUCCAL BEDTIME 07/18/20 07/18/20 Unknown History cholecalciferol (vitamin D3) 50,000 unit PO Q7D 07/18/20 07/18/20 Unknown History ciprofloxacin HCl [Cipro] 500 mg PO BID 07/18/20 07/18/20 Unknown History fluticasone propionate [Flonase] 2 spray INTRANASAL BEDTIME 07/18/20 07/18/20 Unknown History levothyroxine 150 mcg PO QPM 07/18/20 07/18/20 Unknown History lisinopril 10 mg PO BEDTIME 07/18/20 07/18/20 Unknown History loratadine [Claritin] 10 mg PO DAILY 07/18/20 07/18/20 Unknown History mupirocin 1 applic TOPICAL TID PRN 07/18/20 07/18/20 Unknown History nortriptyline 150 mg PO BEDTIME 07/18/20 07/18/20 Unknown History rosuvastatin 5 mg PO QPM 07/18/20 07/18/20 Unknown History tramadol 50 - 100 mg PO TID PRN 07/18/20 07/18/20 Unknown History Allergies Allergy/AdvReac Type Severity Reaction Status Date / Time No Known Allergies Allergy Verified 07/18/20 09:46 Current Medications Current Medications Generic Name Dose Route Start Last Admin Trade Name Freq PRN Reason Stop Dose Admin Atorvastatin Calcium 20 mg 07/19/20 18:00 07/19/20 17:28 Atorvastatin 40 Mg Tablet PO 20 mg QPM JOSIAH Administration Dexamethasone 2 mg 07/19/20 14:00 07/20/20 06:45 Dexamethasone 4 Mg/Ml Inj IVP 2 mg Q8H JOSIAH Administration Fluticasone Propionate 2 spray 07/19/20 21:00 07/19/20 21:26 Fluticasone Nasal [place] 16gm Btl INTRANASAL 2 spray BEDTIME JOSIAH Administration Gabapentin 600 mg 07/19/20 21:00 07/19/20 21:27 Gabapentin 300 Mg Capsule PO 600 mg BEDTIME JOSIAH Administration Heparin Sodium (Beef Lung) 5,000 unit 07/18/20 05:52 07/20/20 05:00 Heparin 5,000 Unit/Ml Inj 1 Ml SUBCUT 5,000 unit Q8H JOSIAH Administration Piperacillin Sod/Tazobactam 50 mls @ 12.5 mls/hr 07/18/20 12:00 07/20/20 11:01 Sod 3.375 gm/ Sodium Chloride IV 12.5 mls/hr Q8H JOSIAH Administration Protocol As Directed Insulin Aspart 0 unit 07/18/20 08:00 07/20/20 11:04 Insulin Aspart 100 Unit/1 Ml SUBCUT 4 unit WM&BEDTIME JOSIAH Administration Protocol Lactulose 20 gm 07/19/20 10:00 07/20/20 09:11 Lactulose Oral Liq 20 Gm/30 Ml Udc PO Not Given Q12H JOSIAH Levothyroxine Sodium 175 mcg 07/18/20 09:00 07/20/20 08:22 Levothyroxine 175 Mcg Tablet PO 175 mcg DAILY JOSIAH Administration Nortriptyline HCl 150 mg 07/19/20 21:00 07/19/20 21:27 Nortriptyline 25 Mg Capsule PO 150 mg BEDTIME JOSIAH Administration Pantoprazole Sodium 40 mg 07/18/20 09:00 07/20/20 08:[address] 40 Mg Tablet PO 40 mg DAILY JOSIAH Administration Tramadol HCl 50 mg 07/19/20 12:01 07/20/20 11:01 Tramadol 50 Mg Tablet PO 50 mg TID PRN Administration Pain PFSH Acute PFSH: Medical History Cervical disc disease Cervical radiculopathy Degenerative lumbar disc Facet arthritis, degenerative, lumbar spine Gross hematuria Opioid contract exists Polymyositis PVCs (premature ventricular contractions) Stopped taking metoprolol due to weight gain Recurrent UTI Surgical History Hx of bilateral breast reduction surgery Hx of neck surgery 06/2013 C4 C5 C6 [facility] [place] Dr. Chris Adair [facility] 12/29/19 C5 C6 C7 Family History Son Cancer BLADDER CANCER Mother Cancer COLON CANCER Diabetes Father Diabetes Social History Smoking and tobacco status: never smoked Alcohol intake: never Adopted: No Caregiver/support person: No Lives independently: No Household members: spouse Marital status: Current occupational status: disabled Vitals/I&O/Wt Last Vital Signs Temp 98.1 F 07/20/20 11:03 Pulse 86 07/20/20 11:03 Resp 16 07/20/20 11:03 BP 124/77 07/20/20 11:03 Pulse Ox 98 07/20/20 11:03 07/19/20 07/20/20 07/20/20 22:59 06:59 14:59 Intake Total 290 / 1765 50 / 1815 170 / 170 Output Total 0 / 800 900 / 1700 150 / 150 Balance 290 / 965 -850 / 115 Weight last 48 hrs Weight 213 lb 12.8 oz Physical Exam Const: COMMON NORMALS: no acute distress, patient oriented x3 and alert GENERAL APPEARANCE: cooperative and comfortable NUTRITIONAL APPEARANCE: overweight ORIENTATION/CONSCIOUSNESS: Yes awake HENMT: COMMON NORMALS: normocephalic and atraumatic HEAD & SCALP: normocephalic and atraumatic Eye: GENERAL EYE: appearance normal, both eyes and all related structures Chest: COMMONS NORMALS: normal inspection of the chest Resp: COMMON NORMALS: normal respiratory effort EFFORT & INSPECTION: Yes able to speak in complete sentences and Yes symmetric chest movement Extremity: RIGHT LOWER EXTREMITY: Yes foot & digits (There is swelling about the ankle.) Right ankle: Yes inspection (Ecchymosis is present laterally along the lateral malleolus), Yes palpation (Tender along the lateral malleolus), Yes ROM (Able to actively dorsiflex) and Yes neurovascular exam (Decreased sensation secondary to neuropathy) LEFT LOWER EXTREMITY: Yes foot & digits (The patient states history of plantar fascia rupture) Neuro: COMMON NORMALS: patient oriented x3 SENSORIUM/ORIENTATION: Yes alert Psych: COMMON NORMALS: mental status grossly normal APPEARANCE: Yes grossly normal ATTITUDE: Yes calm and Yes engaged ATTENTION/CONCENTRATION: Yes attention grossly intact Skin: COMMON NORMALS: no rashes or lesions noted GENERAL SKIN EXAM: no rashes or lesions noted Urinary Catheter Management^: Bustamante: Cath Placed During This Visit: yes, but has since been removed by the nurse Reason for Continuing Indwelling Catheter: Decision to DC Catheter Urinary Catheter Date of Insertion: 07/18/20 Urinary Catheter Time of Insertion: 04:35 Date Urinary Catheter Removed: 07/19/20 Time Urinary Catheter Discontinued: 11:30 Data Micro: Micro: Microbiology 07/18/20 04:33 Urine Culture - Fi nal Urine Catheterize d 07/18/20 20:50 Stool Lactoferrin - Final Stool - Stool Asp irate Enteric Pathogens (PCR) - Final Parasite Antigen P gina - Final C.difficile Toxin B Gene (PCR) - Fin al Occult Blood (FIT) - Final Imaging^: Xray Ortho: I personally reviewed and interpreted this imaging study as follows: My impression: 3 views of the right ankle are personally reviewed by me. The x-ray images demonstrate a spiral/oblique fracture of the lateral malleolus. Additionally, I do believe there is a nondisplaced posterior malleolus fracture. A&P Assessment and plan (1) Fibula fracture: Patient was admitted through the emergency department as noted above. I was asked to see the patient in consultation regarding a lateral malleolus fracture. Upon my review of imaging studies, in addition to the lateral malleolar fracture, there does appear to be a posterior malleolar fracture which is nondisplaced. Additionally, the patient has a history of a plantar fascia rupture for which she is treating with Dr. Montoya. Upon my evaluation, I am concerned about the stability of the ankle on the right. Also, with her partial weightbearing status on the left secondary to her previous history, we will obtain a wheelchair for her so that she may protect the fracture as well as her plantar fascia in the opposite foot. I spoke with Dr. Montoya. He is willing to follow this fracture as well as her opposite foot. He does request a CT scan and I will order this for her today. Status: Acute Qualifiers: Encounter type: initial encounter Fibula location: lateral malleolus Fracture alignment: nondisplaced Fracture type: closed Laterality: right Qualified Code(s): S82.64XA - Nondisplaced fracture of lateral malleolus of right fibula, initial encounter for closed fracture (2) Fracture of posterior malleolus of right tibia: Status: Acute Qualifiers: Encounter type: initial encounter Fracture type: closed Qualified Code(s): S82.391A - Other fracture of lower end of right tibia, initial encounter for closed fracture (3) Plantar fascia rupture: Status: Acute Qualifiers: Encounter type: sequela Laterality: left Qualified Code(s): S93.692S - Other sprain of left foot, sequela Consult Attestations Medical Necessity Statement: Per hospitalist team. Coding Level of Care Code Acute Assistant Brand Manager for [facility] Fwd Exam Comprehensive Diagnoses Fibula fracture S82.64XA Encounter type: initial encounter Fibula location: lateral malleolus Fracture alignment: nondisplaced Fracture type: closed Laterality: right Fracture of posterior malleolus of right tibia S82.391A Encounter type: initial encounter Fracture type: closed Plantar fascia rupture S93.692S Encounter type: sequela Laterality: left
--- NOTE | 2020-07-20 11:46 | CT_ITS ---
WS: [id number] NONCONTRAST CT RIGHT ANKLE TECHNIQUE: Noncontrast CT right ankle with coronal and sagittal reformatted images. CLINICAL INFORMATION: Characterization of right ankle fracture COMPARISON: None. DLP: 104.[address] scans at [facility] use at least one of these dose optimization techniques: automat ed exposure control; mA and/or kV adjustment per patient size (includes targeted exams where dose is matched to clinical indication); or iterative reconstruction. FINDINGS: Slightly comminuted oblique fracture involving the distal fibula. Mild widening measuring 4 to 5 mm. Tiny fracture fragment distally along the distal aspect of the fracture cleft. Normal medial and late ral malleolus. Normal ankle mortise. Moderate soft tissue edema about the lateral malleolus. Nondisplaced fracture involving the posterior malleolus extending to the tibiotalar joint. No displac ement. Normal calcaneus. No other visualized acute fractures. Chronic appearing fracture deformity with callus formation at the base of the second metatarsal. Norm al talar neck. Normal navicular. Normal talocalcaneal articulation. CT/CT ankle RT wo con* [id number] IMPRESSION: 1. Slightly comminuted oblique fracture involving the distal fibula with mild widening measuring 4 to 5 mm. 2. Tiny fragment along the distal aspect of the fracture cleft distal fibula. 3. Nondisplaced fracture involving the posterior malleolus. This extends to th e tibiotalar joint. 4. Normal medial malleolus. 5. Chronic appearing healed fracture involving the base of the second metatars al.
[2020-07-20 11:48] LABS: Glucose Point of Care 153 mg/dL (70-110)
--- NOTE | 2020-07-20 15:31 | PM.DCS ---
Discharge Providers Date of Admission: 07/18/20 03:24 Date of Discharge: July 20, 2020 Attending Provider at Admission: Cortes Thornton MD Attending Provider at Discharge: Isaiah Lopes MD Primary Care Provider: Maliha Tijerina MD Diagnoses at Discharge Discharge Diagnosis (1) Fibula fracture: Status: Acute Qualifiers: Encounter type: initial encounter Fibula location: lateral malleolus Fracture type: closed Fracture alignment: nondisplaced Laterality: right Qualified Code(s): S82.64XA - Nondisplaced fracture of lateral malleolus of right fibula, initial encounter for closed fracture (2) Fracture of posterior malleolus of right tibia: Status: Acute Qualifiers: Encounter type: initial encounter Fracture type: closed Qualified Code(s): S82.391A - Other fracture of lower end of right tibia, initial encounter for closed fracture (3) Plantar fascia rupture: Status: Acute Qualifiers: Encounter type: sequela Laterality: left Qualified Code(s): S93.692S - Other sprain of left foot, sequela (4) Adrenal insufficiency: Status: Acute (5) Colitis: Status: Acute (6) Syncope and collapse: Status: Acute (7) BLACK (acute kidney injury): Status: Acute (8) Anemia: Status: Acute Reason for Visit Reason for Visit: bilat weakness Hospital Course Hospital Course Janette Nguyen is a 49 year old female who is steroid-dependent for history of polymyositis, hypothyroidism, hypertension type 2 diabetes presented today with chief complaint of syncopal event. Patient is stating that she takes 70 mg of steroids twice in a week which she has been doing for quite some time but on Sunday reduced her dose to 50 mg. She takes care of her grandchildren, and was noticing some weakness of her arms on Sunday. Around midnight on Sunday she got up to help her granddaughter to go to the bathroom, after she sent her granddaughter to her bed she went to the bathroom to void urine and had an syncopal event. Her checked on her in the morning when he got up. She was found in the bathroom on the floor, in deep sleep & snoring(has history of sleep apnea) with bruise on her nose with mild bleeding. She had 1 episode of emesis as well. Her woke her up, she did not exhibit any signs of stroke, she was not able to recall events of last night, she went to bed and slept until Sunday midnight. These events are very unusual for her that prompted her to come to the hospital for further evaluation. She is denying any chest pain, recent fever, orthopnea, PND, previous syncopal events of note, she has stopped taking metoprolol (on her own due to weight gain) which was prescribed for her PVCs in the past , recently she was given ciprofloxacin for UTI, her antibiotics were switched to amoxicillin for tooth infection. She has no history of seizures, SC, CHF, stroke or cancer When she arrived in the ER she was hypotensive blood pressure 72/48 mmHg, she was given normal saline and hydrocortisone stress dose of 50 mg that improved her blood pressure 114/57mmhg, he was awake and alert no recurrence of symptoms, creatinine 3.9, she was unable to void, was endorsing hypogastric fullness, leukocytosis, tachycardic, sepsis, CRP high, she was given broad-spectrum antibiotics, Bustamante catheter placement revealed 1 L normal color urine, septic CT abdomen pelvis was done on admission and the results are as followed. Patient went to the hospital for management of sepsis secondary to colitis and adrenal insufficiency because of recent decrease in dose of steroids and stress of sepsis. She was started on broad-spectrum antibiotics. Her antihypertensives were withheld. Echocardiogram was done which showed an EF of 50 to 60% with normal diastolic dysfunction without any valvular abnormalities. Her culture results remain negative. Stool study was positive only for occult blood which could be secondary to ongoing colitis. For ankle fracture patient was seen by orthopedics and CT of ankle was done. Patient is to continue wearing her orthopedic boot. Patient already has an appointment with Dr. Montoya in the coming week and she is going to follow-up with him for same. On admission patient was also found to be in acute kidney injury most likely from dehydration which was treated with IV fluids and had resolved by the day of discharge. Her hemoglobin trended down from 12.6 on admission to 10 on the day of discharge. Patient did not have any active bleeding or melena. Patient is been discharged in hemodynamic stable condition with advised to continue ciprofloxacin and Flagyl for 5 more days to finish a course of antibiotics for colitis. For adrenal insufficiency she is supposed to be on prednisone 40 mg every other day for 5 more days followed by 20 mg every other day for 5 more days followed by her home schedule of 50 mg twice weekly. She is to follow-up with her primary care provider for repeat hemoglobin in a week. She is to follow-up with Dr. Andrew as an outpatient in 2 weeks for possible EGD and colonoscopy. Patient is to hold off on antihypertensives for now and check her blood pressure twice a day to maintain a blood pressure diary and follow-up with her primary care provider within a week for reinitiation of antihypertensives. She has been told if the blood pressures are more than 140/90 mmHg regularly to start her lisinopril. Physical Exam Narrative: EXAM NARRATIVE: Const: COMMON NORMALS: no acute distress and patient oriented x3 HENMT: COMMON NORMALS: oropharynx normal OTHER: Bruising over nasal bridge. Neck/C-Spine: COMMON NORMALS: no JVD Resp: COMMON NORMALS: normal respiratory effort and clear to auscultation bilaterally AUSCULTATION: clear to auscultation bilaterally Cardio: COMMON NORMALS: no JVD, regular rhythm, S1 normal heart sound present, S2 normal heart sound present and No murmurs present (Cardio) RHYTHM: regular rhythm HEART SOUNDS: S1 normal heart sound present and S2 normal heart sound present GI: COMMON NORMALS: Normal to inspection, nondistended, normoactive bowel sounds present, Soft to palpation and non-tender PALPATION: Yes Soft to palpation Extremity: COMMON NORMALS: no joint enlargement OTHER: R ankle swelling, lat bruise, tender Neuro: COMMON NORMALS: patient oriented x3 and moves all extremities Skin: COMMON NORMALS: no rashes or lesions noted GENERAL SKIN EXAM: no rashes or lesions noted Urinary Catheter Management^: Bustamante: Cath Placed During This Visit: yes, but has since been removed by the nurse Reason for Continuing Indwelling Catheter: Decision to DC Catheter Urinary Catheter Date of Insertion: 07/18/20 Urinary Catheter Time of Insertion: 04:35 Date Urinary Catheter Removed: 07/19/20 Time Urinary Catheter Discontinued: 11:30 Discharge Data Data Completed and Pending: Completed Studies During Hospitalization Category Date Time Status CT abdomen pelvis wo con [id number] Rout ine Cat Scan 07/18/20 04:[address] cervical spin wo con* [id number] Rout ine Cat Scan 07/18/20 04:[address] head wo con* 7 0450 Urgent Cat Scan 07/18/20 02:[address] lumbar spine w o con* [id number] Routi ne Cat Scan 07/18/20 04:[address] thoracic spin wo con* [id number] Rout ine Cat Scan 07/18/20 04:11 Completed XR ankle RT min 3 V* [id number] Routine Exams 07/18/20 09:17 Completed XR chest 1V claudia ble [id number] Urgent Exams 07/18/20 02:33 Completed CV echo complete* [id number] Routine Ultrasound 07/18/20 05:52 Completed Pending at discharge Category Date Time Status CT ankle RT wo co n* [id number] Routine Cat Scan 07/20/20 11:46 Taken Blood Culture Sta t Lab 07/18/20 02:30 Results Labs from last 24 hours 07/20/20 07/20/20 07/20/20 10:59 08:32 08:32 WBC 11.0 H RBC 3.59 L Hgb 9.9 L Hct 32.1 L MCV 89.4 MCH 27.6 L MCHC 30.8 RDW 14.1 Plt Count 248 MPV 11.1 H Neut % (Auto) 82.7 Lymph % (Auto) 6.0 Blanco % (Auto) 10.5 Eos % (Auto) 0.1 Baso % (Auto) 0.1 Neut # (Auto) 9.08 H Lymph # (Auto) 0.7 L [place] # (Auto) 1.2 H Eos # (Auto) 0.0 Baso # (Auto) 0.0 Nucleated RBC % (a uto) 0.2 Nucleated RBCs # 0.0 Sodium 137 Potassium 4.5 Chloride 105 Carbon Dioxide 21 L Anion Gap 15.5 BUN 22 H Creatinine 0.8 GFR Calculation 76.2 L Glucose 206 H POC Glucose 153 H Calculated Osmolal ity 293 Calcium 8.3 L Total Bilirubin 0.4 AST 17 ALT 14 Alkaline Phosphata se 68 Total Protein 5.7 L Albumin 3.1 L Globulin 2.6 07/20/20 07/19/20 07/19/20 06:26 20:42 16:32 WBC RBC Hgb Hct MCV MCH MCHC RDW Plt Count MPV Neut % (Auto) Lymph % (Auto) [place]anco % (Auto) Eos % (Auto) Baso % (Auto) Neut # (Auto) Lymph # (Auto) [place] # (Auto) Eos # (Auto) Baso # (Auto) Nucleated RBC % (a uto) Nucleated RBCs # Sodium Potassium Chloride Carbon Dioxide Anion Gap BUN Creatinine GFR Calculation Glucose POC Glucose 142 H 168 H 120 H Calculated Osmolal ity Calcium Total Bilirubin AST ALT Alkaline Phosphata se Total Protein Albumin Globulin Addt'l Data from Hospital Stay: Microbiology 07/18/20 04:33 Urine Catheterized Urine Culture - Final 07/18/20 20:50 Stool - Stool Aspirate Stool Lactoferrin - Final 07/18/20 20:50 Stool - Stool Aspirate Enteric Pathogens (PCR) - Final 07/18/20 20:50 Stool - Stool Aspirate Parasite Antigen Panel - Final 07/18/20 20:50 Stool - Stool Aspirate C.difficile Toxin B Gene (PCR) - Final 07/18/20 20:50 Stool - Stool Aspirate Occult Blood (FIT) - Final 07/18/20 02:15 Blood Blood Culture - Preliminary NEGATIVE TO DATE 07/18/20 02:30 Blood Blood Culture - Preliminary NEGATIVE TO DATE Laboratory Results WBC 11.0 10^3/uL (4.0 -10.0) H 07/20/20 08:32 RBC 3.59 10^6/uL (4.1 -5.3) L 07/20/20 08:32 Hgb 9.9 g/dL (11.5-15 .3) L 07/20/20 08:32 Hct 32.1 % (37.0-47.0 ) L 07/20/20 08:32 MCV 89.4 fL (81-99) 07/20/20 08:32 MCH 27.6 pg (28.0-34. 0) L 07/20/20 08:32 MCHC 30.8 g/dL (30.0-3 6.0) 07/20/20 08:32 RDW 14.1 % (12.1-15.1 ) 07/20/20 08:32 Plt Count 248 10^3/cmm (130 -400) 07/20/20 08:32 MPV 11.1 fL (7.4-10.4 ) H 07/20/20 08:32 Neut % (Auto) 82.7 % 07/20/20 08:32 Lymph % (Auto) 6.0 % 07/20/20 08:32 [place]anco % (Auto) 10.5 % 07/20/20 08:32 Eos % (Auto) 0.1 % 07/20/20 08:32 Baso % (Auto) 0.1 % 07/20/20 08:32 Neut # (Auto) 9.08 10^3/uL (1.8 -7.7) H 07/20/20 08:32 Lymph # (Auto) 0.7 10^3/uL (0.8- 4.8) L 07/20/20 08:32 [place] # (Auto) 1.2 10^3/uL (0.2- 0.9) H 07/20/20 08:32 Eos # (Auto) 0.0 10^3/uL (0.0- 0.8) 07/20/20 08:32 Baso # (Auto) 0.0 10^3/uL (0.0- 0.1) 07/20/20 08:32 Nucleated RBC % (a uto) 0.2 % 07/20/20 08:32 Nucleated RBCs # 0.0 /100WBC 07/20/20 08:32 Sodium 137 mmol/L (136-1 45) 07/20/20 08:32 Potassium 4.5 mmol/L (3.5-5 .1) 07/20/20 08:32 Chloride 105 mmol/L (98-10 7) 07/20/20 08:32 Carbon Dioxide 21 mmol/L (22-29) L 07/20/20 08:32 Anion Gap 15.5 (5-19) 07/20/20 08:32 BUN 22 mg/dL (6-20) H 07/20/20 08:32 Creatinine 0.8 mg/dL (0.5-0. 9) 07/20/20 08:32 GFR Calculation 76.2 mL/min (90-1 30) L 07/20/20 08:32 Glucose 206 mg/dL (65-115 ) H 07/20/20 08:32 POC Glucose 153 mg/dL (70-110 ) H 07/20/20 10:59 Calculated Osmolal ity 293 mOsm/kg (285- 295) 07/20/20 08:32 Lactate 2.1 mmol/L (0.5-2 .2) 07/18/20 02:30 Calcium 8.3 mg/dL (8.5-10 .5) L 07/20/20 08:32 Magnesium 3.0 mg/dL (1.7-2. 3) H 07/18/20 01:55 Total Bilirubin 0.4 mg/dL (0.15-1 .2) 07/20/20 08:32 AST 17 U/L (0-32) 07/20/20 08:32 ALT 14 U/L (0-33) 07/20/20 08:32 Alkaline Phosphata se 68 IU/L (35-105) 07/20/20 08:32 Creatine Kinase 81 U/L (26-192) 07/18/20 01:55 C-Reactive Protein 262.5 mg/L (0.0-4 .9) H 07/18/20 01:55 Total Protein 5.7 g/dL (6.6-8.7 ) L 07/20/20 08:32 Albumin 3.1 g/dL (3.5-5.2 ) L 07/20/20 08:32 Globulin 2.6 g/dL (1.3-4.6 ) 07/20/20 08:32 Lipase 26 U/L (13-60) 07/18/20 01:55 Procalcitonin 6.27 ng/mL (0-0.5 ) H 07/18/20 01:55 TSH 0.32 uIU/mL (0.27 -4.20) 07/18/20 01:55 Urine Color Yellow (Yellow) 07/18/20 04:33 Urine Appearance Sl cloudy (CLEAR ) A 07/18/20 04:33 Urine pH 5 (5-7) 07/18/20 04:33 Ur Specific Gravit y 1.010 (1.005-1.0 30) 07/18/20 04:33 Urine Protein Trace (Negative) 07/18/20 04:33 Urine Glucose (UA) Norm (Normal) 07/18/20 04:33 Urine Ketones Negative (Negati ve) 07/18/20 04:33 Urine Blood Neg (Negative) 07/18/20 04:33 Urine Nitrate Negative (Negati ve) 07/18/20 04:33 Urine Bilirubin 1+ (Negative) H 07/18/20 04:33 Urine Urobilinogen 1 mg/dL (Negative ) H 07/18/20 04:33 Ur Leukocyte Janell ase Negative (Negati ve) 07/18/20 04:33 Urine RBC 0-4 /hpf (0-2) H 07/18/20 04:33 Urine WBC 0-4 /hpf (0-5) H 07/18/20 04:33 Ur Squamous Epith Cells 0-4 /hpf (0-5) H 07/18/20 04:33 Amorphous Sediment 1+ /hpf 07/18/20 04:33 Urine Bacteria 1+ /hpf (NONE) H 07/18/20 04:33 Urine Opiates Scre en Negative ng/mL (N egative) 07/18/20 04:33 Ur Barbiturates Sc reen Negative ng/mL (N egative) 07/18/20 04:33 Ur Phencyclidine S crn Negative ng/mL (N egative) 07/18/20 04:33 Ur Amphetamines Sc reen Negative ng/mL (N egative) 07/18/20 04:33 U Benzodiazepines Scrn Negative ng/mL (N egative) 07/18/20 04:33 Urine Cocaine Scre en Negative ng/mL (N egative) 07/18/20 04:33 U Marijuana (THC) Screen Positive ng/mL (N egative) H 07/18/20 04:33 Ethyl Alcohol < 10 mg/dL (0-10) 07/18/20 01:55 Serum Ketones Negative (Negati ve) 07/18/20 01:55 Impressions Chest X-Ray 07/18/20 02:33 IMPRESSION: No evidence of active cardiopulmonary disease. Head CT 07/18/20 02:33 IMPRESSION: No acute intracranial abnormality. Radiation Dose CTDIVOL = (mGy): DLP = 796.29 (mGy-cm) Cervical Spine CT 07/18/20 04:11 IMPRESSION: No acute findings. Radiation Dose CTDIVOL = (mGy): DLP = 796.52 (mGy-cm) Lumbar Spine CT 07/18/20 04:11 IMPRESSION: No acute findings. Radiation Dose CTDIVOL = (mGy): DLP = 2174.56 (mGy-cm) Thoracic Spine CT 07/18/20 04:11 IMPRESSION: No acute injury. Radiation Dose CTDIVOL = (mGy): DLP = 2223.35 (mGy-cm) Abdomen/Pelvis CT 07/18/20 04:18 IMPRESSION: 1. Inflammatory changes of the distal transverse, descending and sigmoid colon wall, consistent with colitis. Infectious and inflammatory etiologies should be considered. 2. Diffuse fatty liver infiltration with scattered areas of increased and decreased echogenicity which may represent focal fat infiltration and sparing. Further evaluation with contrast enhanced abdomen MRI in a non emergent basis is recommended. Radiation Dose CTDIVOL = (mGy): DLP = 1501.98 (mGy-cm) Ankle X-Ray 07/18/20 09:17 IMPRESSION: There is a nondisplaced oblique fracture through the distal fibula. Vitals: Last Vital Signs Temp 98.1 F 07/20/20 11:03 Pulse 86 07/20/20 11:03 Resp 16 07/20/20 11:03 BP 124/77 07/20/20 11:03 Pulse Ox 98 07/20/20 11:03 Discharge Plan Discharge Patient Disposition: Home Condition: Stable Prescriptions: New metronidazole [Flagyl] 500 mg tablet 500 mg PO Q8H 5 Days Qty: 15 RF: 0 ferrous fumarate 324 mg (106 mg iron) tablet 324 mg PO BID Qty: 20 RF: 0 pantoprazole [Protonix] [address] for susp in packet 40 mg PO BID Qty: 30 RF: 0 polyethylene glycol 3350 [Miralax] 17 gram/dose powder 17 g PO DAILY 4 Days Qty: 238 RF: 0 Continued (DME) Sole Supports See Rx Instructions .Route .MEDSUPPLY Qty: 1 RF: 0 (DME) night splint See Rx Instructions .Route .MEDSUPPLY Qty: 1 RF: 0 (DME) cam boot See Rx Instructions .Route .MEDSUPPLY Qty: 1 RF: 0 nitroglycerin 0.1 mg/hr patch 24 hour See Rx Instructions .ROUTE .COMPLEX Qty: 30 RF: 1 tramadol 50 mg tablet 50 - 100 mg PO TID PRN (Reason: Pain) RF: 0 mupirocin 2 % ointment 1 applic TOPICAL TID PRN (Reason: unknown) RF: 0 ProAir HFA 90 mcg/actuation Hfa Aerosol Inhaler 2 puff INHALATION Q4H PRN (Reason: Shortness Of Breath) RF: 0 Flonase 50 mcg/actuation [place],Suspension 2 spray INTRANASAL BEDTIME RF: 0 Claritin 10 mg Tablet 10 mg PO DAILY RF: 0 nortriptyline 50 mg capsule 150 mg PO BEDTIME RF: 0 rosuvastatin 5 mg tablet 5 mg PO QPM RF: 0 cholecalciferol (vitamin D3) 1,250 mcg (50,000 unit) capsule 50,000 unit PO Q7D RF: 0 gabapentin 600 mg tablet 600 - 1,200 mg PO BEDTIME RF: 0 prednisone 5 mg tablet See Rx Instructions .ROUTE .COMPLEX RF: 0 omeprazole 40 mg capsule,delayed release(DR/EC) 40 mg PO DAILY RF: 0 liothyronine 5 mcg tablet 5 mcg PO DAILY RF: 0 glimepiride [Amaryl] 2 mg tablet 2 mg PO DAILY RF: 0 acetaminophen [Tylenol Arthritis Pain] 650 mg Tablet Extended Release 1,300 mg PO PRN RF: 0 potassium chloride 20 mEq tablet,ER particles/crystals 20 meq PO DAILY RF: 0 baclofen 10 mg tablet 10 mg PO BEDTIME RF: 0 prednisone 50 mg tablet See Rx Instructions .ROUTE .COMPLEX RF: 0 lidocaine 5 % adhesive patch,medicated See Rx Instructions .ROUTE .COMPLEX RF: 0 Claritin-D 12 Hour 5-120 mg tablet extended release 12 hr 1 tab PO DAILY PRN (Reason: unknown) RF: 0 zolpidem 10 mg tablet 10 mg PO BEDTIME PRN (Reason: Sleep) RF: 0 Cipro 500 mg Tablet 500 mg PO BID 5 Days Qty: 10 RF: 0 Held lisinopril 10 mg tablet 10 mg PO BEDTIME RF: 0 Hold Instructions: Resume on 07/28/20. Discontinued Suboxone 8-2 mg Film 1.5 film buccal BEDTIME RF: 0 amoxicillin 500 mg tablet 500 mg PO TID RF: 0 levothyroxine 150 mcg Tablet 150 mcg PO QPM RF: 0 diclofenac sodium [Voltaren-XR] 100 mg tablet extended release 24 hr 100 mg PO BEDTIME RF: 0 naproxen sodium [Aleve] 220 mg Tablet 440 mg PO QPM RF: 0 furosemide 20 mg tablet 40 mg PO DAILY RF: 0 Discharge Orders: Discharge Order (Routine); Ordered 07/20/20 Ordered By: Isaiah Lopes Other Ambulatory Orders: DME: Brian (Order) Location: None Selected Ordered By: Mohini Barber Referrals: Maliha Tijerina MD [Primary Care Provider] - 7-10 days (Repeat CBC) Sebastián Montoya DPM [Physician] - 06/02/21 1:15 pm Mahin Andrew MD [Physician] - 2 weeks (EGD and colonoscopy) Discharge Diet: Usual diet Discharge Activity: Limit activity as instructed, Use walker/crutches as instructed, Wheelchair as instructed and As per PT/OT instructions Patient Instructions: Opioid Safety Activity Restrictions/Additional Instructions: Touch down weight bearing right lower extremity and partial weight bearing left lower extremity. For adrenal insufficiency she is supposed to be on prednisone 40 mg every other day for 5 more days followed by 20 mg every other day for 5 more days followed by her home schedule of 50 mg twice weekly. She is to follow-up with her primary care provider for repeat hemoglobin in a week. She is to follow-up with Dr. Andrew as an outpatient in 2 weeks for possible EGD and colonoscopy. Patient is to hold off on antihypertensives for now and check her blood pressure twice a day to maintain a blood pressure diary and follow-up with her primary care provider within a week for reinitiation of antihypertensives. She has been told if the blood pressures are more than 140/90 mmHg regularly to start her lisinopril. Discharge Attestations Time Spent in Discharge Care*: greater than 30 min Specific Discharge Activities: educating patient, educating and/or supporting family/caregiver, discussing with pcp/other providers, discussing with director case/social workers/dc planners, documenting/other paperwork and evaluating patient/reviewing data Quality Metrics Clinical Quality Measures During this hospital stay, did patient experience: None Coding Level of Care Code Acute [facility] DC note Diagnoses Fibula fracture S82.64XA Encounter type: initial encounter Fibula location: lateral malleolus Fracture type: closed Fracture alignment: nondisplaced Laterality: right Fracture of posterior malleolus of right tibia S82.391A Encounter type: initial encounter Fracture type: closed Plantar fascia rupture S93.692S Encounter type: sequela Laterality: left Adrenal insufficiency E27.40 Colitis K52.9 Syncope and collapse R55 BLACK (acute kidney injury) N17.9 Anemia D64.9
[2020-07-20 15:48] LABS: Ferritin 212 ng/mL (15-150); Iron 15 ug/dL (37-145); Percent Saturation 6.6 % (20-50); Total Iron Binding Capacity 227 mcg/dl; Unsaturated Iron Binding 212 ug/dL (112-347)
[2020-07-20 16:00] VITALS: BP 142/82; PULSE 85; RESP 16; TEMP 36.7; O2SAT 99
[2020-07-20 16:51] LABS: Glucose Point of Care 164 mg/dL (70-110)
--- NOTE | 2020-07-20 17:31 | PC.NURSE ---
Discharge education went over with patient and spouse at bedside. Patient stated understanding and had not follow up questions. IV discontinued and patient wheeled out to private vehicle for discharge.
[2020-07-20 17:32] VITALS: BP 142/82; PULSE 85; RESP 16; TEMP 36.7; O2SAT 99
== END 2020-07-20 17:33 | disposition home or self-care (01) | DRG 872 ==
LOC: ER 02:33 → ICU 03:40 → MEDSURG 07-19 12:02
PROVIDERS: Internal Medicine; Admitting Provider Internal Medicine; Emergency Provider Emergency Medicine; PCP Family Medicine; Visit Provider Student in an Organized Health Care Education/Training Program
DX: A41.9 Sepsis, unspecified organism (principal); M33.20 Polymyositis, organ involvement unspecified; E87.2 Acidosis; N17.9 Acute kidney failure, unspecified; E27.40 Unspecified adrenocortical insufficiency; K52.9 Noninfective gastroenteritis and colitis, unspecified; Z79.52 Long term (current) use of systemic steroids; E03.9 Hypothyroidism, unspecified; I10 Essential (primary) hypertension; E11.9 Type 2 diabetes mellitus without complications; G47.30 Sleep apnea, unspecified; Z87.440 Personal history of urinary (tract) infections; I95.9 Hypotension, unspecified; M51.36 Other intervertebral disc degeneration, lumbar region; R33.9 Retention of urine, unspecified; R55 Syncope and collapse; Z98.1 Arthrodesis status; K59.00 Constipation, unspecified; Z79.84 Long term (current) use of oral hypoglycemic drugs; M72.2 Plantar fascial fibromatosis; Z79.2 Long term (current) use of antibiotics; S82.64XA Nondisplaced fracture of lateral malleolus of right fibula, initial encounter for closed fracture; S82.435A Nondisplaced oblique fracture of shaft of left fibula, initial encounter for closed fracture; W18.30XA Fall on same level, unspecified, initial encounter; K76.0 Fatty (change of) liver, not elsewhere classified
CPT/HCPCS: 36415; 36416; 51702; 70450; 71045; 72125; 72128; 72131; 73610; 73700; 74176; 80048; 80053; 80306; 80307; 81001; 82009; 82274; 82550; 82728; 82962; 83540; 83550; 83605; 83630; 83690; 83735; 84145; 84443; 85025; 86140; 87040; 87086; 87493; 87506; 93005; 93306; 96365; 96367; 96372; 96375; 97116; 97161; 97530; 99291; J1100; J1644; J1720; J1815; J2543; J3370; J7030; J7050; L4361

== ENCOUNTER → 2020-07-21 13:38 | Outpatient (BNVA) | payer BC, OTHER, SELFPAY | PROVIDERS: PCP Family Medicine; Visit Provider Podiatrist Foot & Ankle Surgery | DX: M79.672 Pain in left foot (principal); M72.2 Plantar fascial fibromatosis; S82.899A Other fracture of unspecified lower leg, initial encounter for closed fracture; Z01.812 Encounter for preprocedural laboratory examination; Z20.822 Contact with and (suspected) exposure to COVID-19; X58.XXXA Exposure to other specified factors, initial encounter | CPT/HCPCS: 73610; 73630; 87635 ==

== ENCOUNTER 2020-07-23 06:54 | Day surgery (SDC) | payer BC, OTHER, SELFPAY ==
[2020-07-22 15:26] VITALS: BMI 29.4
[2020-07-23] VITALS (11 sets, daily range): BP systolic 118–164; BP diastolic 77–98; PULSE 68–92; RESP 12–18; TEMP 36.6–36.9; O2SAT 94–98
--- NOTE | 2020-07-23 | SCC_ITS ---
Procedure Done: Open reduction internal fixation Right Bimalleolar Ankle Fracture 39859 44 seconds of fluoroscopic guidance, for a cumulative dose of 1.1 mGy, was provided to Dr. Montoya by the radiology department. C-arm images of the RIGHT ankle were saved for the patient's permanent record. [facility]
[2020-07-23] MEDS: sodium chloride 0.9% 1,000 ML 30 ML IV (07:42)
[2020-07-23 07:48] LABS: Glucose Point of Care 91 mg/dL (70-110)
[2020-07-23 07:49] LABS: Hematocrit 36.8 % (37.0-47.0); Hemoglobin 11.9 g/dL (11.5-15.3); Mean Corpuscular HGB Conc 32.3 g/dL (30.0-36.0); Mean Corpuscular Hemoglobin 27.9 pg (28.0-34.0); Mean Corpuscular Volume 86.2 fL (81-99); Mean Platelet Volume 10.4 fL (7.4-10.4); Platelet Count 347 10^3/cmm (130-400); Red Blood Count 4.27 10^6/uL (4.1-5.3); Red Cell Distribution Width 13.5 % (12.1-15.1); White Blood Count 11.6 10^3/uL (4.0-10.0)
[2020-07-23] MEDS: ondansetron 2 mg/ML SDV 2 mL 4 MG IVP ×2 (07:52→12:12)
[2020-07-23] MEDS: scopolamine 1.5 Patch 1 PATCH TRANSDERMA (07:52)
[2020-07-23 08:02] LABS: Slide Review Slide Review Perform
[2020-07-23 08:06] LABS: Absolute Segmented Neutrophil 4.1 10/cmm (1.6-7.1); Band Neutrophils Absolute 4.1 10^3/cmm (0.0-1.2); Lymphocytes 18 %; Lymphocytes Absolute 2.3 10^3/cmm (1.2-3.4); Monocytes Absolute 0.6 10^3/cmm (0.1-0.6); Segmented Neutrophils 35 %; Total Cells Counted 100 (0-100)
[2020-07-23 08:07] LABS: Absolute Neutrophil 8.1 10^3/cmm (1.4-6.5); Alanine Aminotransferase 13 U/L (0-33); Albumin Level 3.3 g/dL (3.5-5.2); Alkaline Phosphatase 71 IU/L (35-105); Anion Gap 13.5 (5-19); Aspartate Amino Transferase 14 U/L (0-32); Blood Urea Nitrogen 11 mg/dL (6-20); Calcium 8.1 mg/dL (8.5-10.5); Carbon Dioxide 28 mmol/L (22-29); Chloride 99 mmol/L (98-107); Eosinophils 0 %; Globulin 3.1 g/dL (1.3-4.6); Glomerular Filtration Rate 88.9 mL/min (90-130); Glucose 113 mg/dL (65-115); Osmolality Calculated 284 mOsm/kg (285-295); Platelet Estimate Normal (Normal); Potassium 3.5 mmol/L (3.5-5.1); Sodium 137 mmol/L (136-145); Stomatocytes 1+; Total Bilirubin 0.4 mg/dL (0.15-1.2); Total Protein 6.4 g/dL (6.6-8.7)
[2020-07-23] MEDS: fentaNYL 50 mcg/mL INJ 2mL 100 MCG IVP (08:16)
--- NOTE | 2020-07-23 08:17 | P.ANESASSM_ITS ---
Pre-Anesthetic Assessment Pre-Anesthetic Assessment: Height/Weight: Height 1.78 m Weight 92.986 kg Temp Pulse Resp BP 98.0 F 86 18 164/95 07/23/20 07:13 07/23/20 07:13 07/23/20 07:13 07/23/20 07:13 Preop Diagnosis: Right bimalleolar ankle fracture Proposed Procedure: Operation Date: 07/23/20 08:50 Proposed Procedures p ORIF Right Bimalleolar Ankle Fracture 35343 S82.841A(Right) - LORY VelázquezM Was Beta Andrea taken within 24 hours: N/A Was Clonidine taken within 24 hours: N/A Last intake: Intake Last Liquid Date 07/22/20 Last Liquid Time 23:00 Last Solid Date 07/22/20 Last Solid Time 18:00 Social: Social History: No alcohol and No tobacco Exam: Pre-Anes Outpt Exam: alert, oriented x 3, clear to auscultation bilaterally and regular rate & rhythm Airway: Submandibular: WNL Cervical ROM: WNL MP: 2 Dentition: Full CV/HEM: CV/HEM: Anemia, Arrythmia and HTN GI: GI: GERD Comments: ?colitis Musc/skel: Comments: Myositis--chronic steroids Anesthetic Plan: ASA status: 3 Anesthesia: General and Regional (specify below) (right pop blk) Risk of > 500 ml blood loss (7ml/kg in children): No Meds/Allergies Current Medications: Current Medications Generic Name Dose Route Start Last Admin Trade Name Freq PRN Reason Stop Dose Admin Sodium Chloride 1,000 mls @ 30 ml s/hr 07/23/20 07:15 07/23/20 07:42 Sodium Chloride 0.9% IV 07/24/20 07:14 30 mls/hr .Q24H JOSIAH Administration Ondansetron HCl 4 mg 07/23/20 07:02 07/23/20 07:52 Ondansetron 2 Mg /Ml Sdv 2 Ml IVP 4 mg Q5M PRN Administration NAUSEA AND VOMITI NG PFSH Anesthesia PFSH: Medical History Adrenal insufficiency Cervical disc disease Cervical radiculopathy Degenerative lumbar disc Facet arthritis, degenerative, lumbar spine Gross hematuria Opioid contract exists Polymyositis PVCs (premature ventricular contractions) Stopped taking metoprolol due to weight gain Recurrent UTI Syncope and collapse Surgical History Hx of bilateral breast reduction surgery Hx of neck surgery 06/2013 C4 C5 C6 [facility] Dr. Chris [facility] Home 12/29/19 C5 C6 C7 Family History Son Cancer BLADDER CANCER Mother Cancer COLON CANCER Diabetes Father Diabetes Social History Smoking and tobacco status: never smoked Alcohol intake: never Adopted: No Caregiver/support person: No Lives independently: No Household members: spouse Marital status: Current occupational status: disabled Data Anesthesia CBC & Chem 7: 07/23/20 07:30 07/23/20 07:30 Other Labs: Laboratory Results - last 48 hr 07/23/20 07/23/20 07/23/20 07:30 07:30 07:37 WBC 11.6 H RBC 4.27 Hgb 11.9 Hct 36.8 L MCV 86.2 MCH 27.9 L MCHC 32.3 RDW 13.5 Plt Count 347 MPV 10.4 Lymph % (Auto) Not Reportable [place] % (Auto) Not Reportable Lymph # (Auto) Not Reportable [place] # (Auto) Not Reportable Total Counted 100 Atypical Lymphs % 2.0 Absolute Neutrophils 8.1 H Segmented Neutrophils 35 Abs Segm Neuts (Man) 4.1 Band Neutrophils 35.0 Abs Band Neuts (Man) 4.1 H Absolute Lymphocytes 2.3 Lymphocytes (Manual) 18 Monocytes (Manual) 5.0 Absolute Monocytes 0.6 Eosinophils (Manual) 0 Absolute Eosinophils 0.0 Basophils (Manual) 0.0 Absolute Basophils 0.0 Metamyelocytes 2.0 Myelocytes 3.0 Nucleated RBCs 1.0 Platelet Estimate Normal Stomatocytes 1+ H Sodium 137 Potassium 3.5 Chloride 99 Carbon Dioxide 28 Anion Gap 13.5 BUN 11 Creatinine 0.7 GFR Calculation 88.9 L Glucose 113 POC Glucose 91 Calculated Osmolality 284 L Calcium 8.1 L Total Bilirubin 0.4 AST 14 ALT 13 Alkaline Phosphatase 71 Total Protein 6.4 L Albumin 3.3 L Globulin 3.1 Cardiac Studies: No Data to Display
--- NOTE | 2020-07-23 08:19 | ANES.PROC ---
Anesthesia Procedures Procedure/Date: 07/23/20 Nerve Block ^: Nerve Block 1: Main Anesthesia: general anesthesia Time Out Performed: Yes Consent: requested by attending/covering physician, from patient, risks and benefits reviewed and patient agrees to proceed Nerve block location: popliteal (right) Anesthesia monitors applied: pulse oximetry, EKG, BP cuff and oxygen Anesthetic Used: ropivicaine 0.5% Amount of anesthesia used (mL): 30 Nerve Stimulator Used?: No Interscalene/Femoral BLK: 4 stimuplex 21 g needle used for position and inplane approach Injection: neg aspiration of heme and paresthesia +/- Patient Tolerated Procedure: well Complications: none
[2020-07-23] MEDS: midazolam 1 mg/mL INJ 2 mL 2 MG IVP (09:11)
--- NOTE | 2020-07-23 10:32 | W.PM.OPSUD ---
Surgery/Procedure H&P Update DATE OF PROCEDURE: July 23, 2020 DATE H&P PERFORMED: 07/21/20 H&P UPDATE INFORMATION: I have reviewed H&P completed within last 30 days, I have examined patient prior to procedure, No changes to prior documentation and H&P is in [facility] on date indicated PREOP DIAGNOSIS: Right bimalleolar ankle fracture PLANNED PROCEDURE: Operation Date: 07/23/20 08:50 Proposed Procedures p ORIF Right Bimalleolar Ankle Fracture 77469 S82.841A(Right) - Sebastián Montoya DPM
[2020-07-23] MEDS: lidocaine 1% INJ 20 mL IM (11:40)
--- NOTE | 2020-07-23 11:58 | XR_ITS ---
WS: [id number] Right ankle, 3 views, 07/23/2020 Clinical Data: post op Comparison: Right ankle, 07/18/2020. Findings: Internal fixation of the distal right fibular fracture with plate and multiple screws is noted. There is a band which is extending between the medial aspect of the distal right tibia and the right fibul a to reduce a tear in the interosseous ligament. Surgical patel are present over the lateral subcutaneous tissue. Of the right ankle. XR/XR ankle RT min 3V* [id number] Impression: Internal fixation of distal right fibular fracture.
--- NOTE | 2020-07-23 11:59 | P.OP_ITS ---
Operative Report Date of procedure: July 23, 2020 Pre-op Diagnosis: Right bimalleolar ankle fracture Post-op diagnosis: same Procedure Done: Open reduction internal fixation Right Bimalleolar Ankle Fracture 69085 Implants: [place] 28 anatomical fibular plate, 3.5 mm locking and nonlocking screws, [place] 28 2.7 mm interfragment screw, Arthrex tight rope XP, 2-0 Vicryl, 4-0 Vicryl, skin patel Surgeon: Sebastián Montoya D.P.M. Employee Wellness/Fitness Coordinator: Jose Anesthesia: General Estimated blood loss: 5 Tourniquet time: See intraoperative documentation Condition: stable Disposition: PACU Brief History: Patient sustained a right bimalleolar ankle fracture including the distal fibula Igor Mayfield B and posterior malleolus fracture confirmed on CT scan this was secondary to a syncopal episode at home fell in her bedroom. Due to the unstable nature of her ankle fracture I recommended open reduction internal fixation risks including pain, bleeding, numbness, infection, hardware irritation, hardware failure, malunion, nonunion, delayed union, posttraumatic arthritis and need for further surgical intervention. Risks also include deep vein thrombosis, pulmonary embolism, heart attack, stroke and .I interviewed the patient preoperatively with her present, questions answered to their satisfaction. She is n.p.o. since midnight and is wishing to proceed with surgical intervention no guarantees written expressed or implied. I interviewed the patient preoperatively with her present, questions answered to their satisfaction. She is n.p.o. since midnight and is wishing to proceed with surgical intervention no guarantees written expressed or implied. Procedure: Under mild sedation the patient was brought to the operating room and placed on the operating table in supine position. A timeout was performed. Anesthesia was then administered by the anesthesia service. Right popliteal block performed per anesthesiologist preoperatively as well. I performed a right medial ankle block and saphenous nerve block with a total of 10 cc of 0.5% Marcaine plain preoperatively. Well-padded pneumatic tourniquet applied to high calf on the right lower extremity. Right lower extremity was then scrubbed, prepped and draped utilizing normal aseptic technique. Right lower extremity was exanguinated with an Esmarch bandage and the tourniquet was inflated to 250 mmHg. Attention was directed to the right ankle where the lateral malleolus is palpated. Directly over the distal fibula a linear longitudinal incision was made with a #15 blade. Care was taken during dissection through subcutaneous tissue down to the layer of periosteum to protect and retract neurovascular and tendinous structures. All bleeders were ligated and cauterized as necessary. New deep 15 blade was utilized to perform periosteal incision in the distal fibular fracture was distracted, evacuated of hematoma, flushed and reduced utilizing point to point forceps. This was then fixated with a interfragmentary screw with excellent bony apposition and compression noted utilizing standard AO technique and a [place] 28 2.7 millimeter screw. A anatomical fibular plate was then secured at the lateral fibula utilizing a combination of locking and nonlocking screws 3.5 mm in diameter with excellent bony apposition and compression noted and intraoperative fluoroscopy confirmed excellent placement of hardware in all 3 planes without violating the ankle mortise. Syndesmosis was interrupted with positive hook test. Parallel to the ankle mortise a transfibular and tibial Arthrex tight rope XP was secured to reduce the syndesm osis for dynamic fixation and noted to be excellent in all 3 planes and secured with stress test. Incision was flushed with saline solution followed by closure utilizing 2-0 Vicryl with periosteum, subcutaneous tissue closed with 4-0 Vicryl and skin closed with patel. Postoperative block performed locally with lidocaine Marcaine mixture total of 20 cc. Tourniquet was deflated and a prompt hyperemic response is noted to the distal digits of the right foot. Dressings included Adaptic, 4 x 4's, Kerlix, Tato wrap and cam boot. Patient tolerated the procedure well and was transferred to the PACU with vital signs stable and vascular status intact. Following a period of postoperative monitoring she will be discharged home is to begin taking a 81 mg aspirin once daily starting tomorrow 07/25/2020 for deep vein thrombosis prophylaxis. She was prescribed oxycodone 10 to be taken judiciously as needed for pain every 4-6 hours she is to remain nonweightbearing and elevate her right foot at all times while at rest.
[2020-07-23] MEDS: metoclopramide 5 mg/mL SDV 2 mL 10 MG IVP (12:20)
--- NOTE | 2020-07-23 14:36 | ANE.PACU2 ---
Inpatient post-anesthesia follow up: Airway intact: Yes Vital signs: Temperature 98.5 F Pulse Rate 68 Respiratory Rate 18 Blood Pressure 118/80 Pulse Oximetry 98 Oxygen Delivery Me thod Room Air Oxygen Flow Rate Fraction of Inspir ed Oxygen Hydration adequate: Yes Nausea and vomiting: No Pain level: 1 Mental status: Baseline
== END 2020-07-23 13:00 | disposition home or self-care (01) ==
PROVIDERS: Anesthesiology; PCP Family Medicine; Visit Provider Podiatrist Foot & Ankle Surgery
PROC: (CPT 27814; principal; 2020-07-23 08:40)
DX: S82.841A Displaced bimalleolar fracture of right lower leg, initial encounter for closed fracture (principal); W18.30XA Fall on same level, unspecified, initial encounter; Y92.003 Bedroom of unspecified non-institutional (private) residence as the place of occurrence of the external cause; I10 Essential (primary) hypertension; K21.9 Gastro-esophageal reflux disease without esophagitis; Z79.52 Long term (current) use of systemic steroids
CPT/HCPCS: 27814; 36415; 36416; 64450; 73610; 76000; 76942; 80053; 80500; 82962; 85007; 85025; 96365; 96374; 96375; C1713; J0690; J1100; J2250; J2405; J2704; J2765; J2795; J3010; J3490; J7030

== ENCOUNTER → 2020-08-16 10:55 | Outpatient (BNVA) | payer BC, OTHER, SELFPAY | PROVIDERS: PCP Family Medicine; Visit Provider Surgery | DX: D64.9 Anemia, unspecified (principal) | CPT/HCPCS: 87635 ==

== ENCOUNTER 2020-08-19 09:14 | Day surgery (SDC) | payer BC, OTHER, SELFPAY ==
[2020-08-13 12:39] VITALS: BMI 28.4
[2020-08-16 12:50] VITALS: BMI 28.4
--- NOTE | 2020-08-19 09:50 | ANES.PREANE2 ---
Pre-Anesthetic Assessment Pre-Anesthetic Assessment: Height/Weight: Height 1.78 m Weight 89.811 kg Preop Diagnosis: Right bimalleolar ankle fracture Proposed Procedure: Operation Date: 08/19/20 11:00 Proposed Procedures p EGD 59732 D64.9 K59.00(Not Applicable) - Mahin Andrew MD s Colonoscopy 41148 D64.9 K59.00(Not Applicable) - Mahin nAdrew MD Was Beta Andrea taken within 24 hours: N/A Was Clonidine taken within 24 hours: N/A Social: Social History: No alcohol and No tobacco Exam: Pre-Anes Outpt Exam: alert, oriented x 3, clear to auscultation bilaterally and regular rate & rhythm Airway: Submandibular: WNL Cervical ROM: WNL MP: 2 Dentition: Full CV/HEM: CV/HEM: Anemia and HTN GI: Comments: Colitis Musc/skel: Comments: Myositis Anesthetic Plan: ASA status: 3 Anesthesia: General and MAC Risk of > 500 ml blood loss (7ml/kg in children): No PFSH Anesthesia PFSH: Medical History Adrenal insufficiency Cervical disc disease Cervical radiculopathy Degenerative lumbar disc Polymyositis PVCs (premature ventricular contractions) Stopped taking metoprolol due to weight gain Recurrent UTI Surgical History H/O brain surgery H/O: hysterectomy History of colonoscopy History of open reduction and internal fixation (ORIF) procedure right ankle bimalleolar fx Hx of bilateral breast reduction surgery Hx of neck surgery 06/2013 C4 C5 C6 [facility] Home 12/29/19 C5 C6 C7 Status post laparoscopic cholecystectomy Family History Son Cancer BLADDER CANCER Mother Cancer COLON CANCER Diabetes Father Diabetes Social History Smoking and tobacco status: never smoked Alcohol intake: never Adopted: No Caregiver/support person: No Lives independently: No Household members: spouse Marital status: Current occupational status: disabled Data Anesthesia Cardiac Studies: No Data to Display
[2020-08-19 10:13] VITALS: BP 137/110; PULSE 97; RESP 18; TEMP 36.2; O2SAT 100
[2020-08-19] MEDS: sodium chloride 0.9% 1,000 ML 30 ML IV (10:26)
[2020-08-19] MEDS: midazolam 1 mg/mL INJ 2 mL 2 MG IVP (10:51)
--- NOTE | 2020-08-19 10:58 | W.PM.OPSUD ---
Surgery/Procedure H&P Update DATE OF PROCEDURE: August 19, 2020 DATE H&P PERFORMED: 08/03/20 H&P UPDATE INFORMATION: I have reviewed H&P completed within last 30 days, I have examined patient prior to procedure and No changes to prior documentation PREOP DIAGNOSIS: panendoscopy PLANNED PROCEDURE: Operation Date: 08/19/20 11:00 Proposed Procedures p EGD 56803 D64.9 K59.00(Not Applicable) - Mahin Andrew MD s Colonoscopy 37566 D64.9 K59.00(Not Applicable) - Mahin Andrew MD
[2020-08-19 11:22] LABS: Glucose Point of Care 118 mg/dL (70-110)
[2020-08-19 11:37] VITALS: BP 107/82; PULSE 92; RESP 16; TEMP 36.6; O2SAT 100
[2020-08-19 11:48] VITALS: BP 141/93; PULSE 90; RESP 18; TEMP 36.5; O2SAT 98
--- NOTE | 2020-08-19 14:03 | ANE.PACU2 ---
Inpatient post-anesthesia follow up: Airway intact: Yes Vital signs: Temperature 97.7 F Pulse Rate 90 Respiratory Rate 18 Blood Pressure 141/93 Pulse Oximetry 98 Oxygen Delivery Me thod Room Air Oxygen Flow Rate 4 Fraction of Inspir ed Oxygen Hydration adequate: Yes Nausea and vomiting: No Pain level: 1 Mental status: Baseline
== END 2020-08-19 12:15 | disposition home or self-care (01) ==
PROVIDERS: PCP Family Medicine; Visit Provider Surgery
PROC: 0DJ08ZZ Inspection of Upper Intestinal Tract, Via Natural or Artificial Opening Endoscopic (ICD-10-PCS; CPT 43235; principal; 2020-08-19 11:00)
PROC: 0DJD8ZZ Inspection of Lower Intestinal Tract, Via Natural or Artificial Opening Endoscopic (ICD-10-PCS; CPT 45378; 2020-08-19 11:00)
DX: K52.9 Noninfective gastroenteritis and colitis, unspecified (principal); D64.9 Anemia, unspecified; K29.70 Gastritis, unspecified, without bleeding; K63.3 Ulcer of intestine; I10 Essential (primary) hypertension
CPT/HCPCS: 36416; 43239; 45380; 82274; 82962; 83630; 87493; 87506; 88305; 96360; 96361; J2250; J2704; J7030

== ENCOUNTER → 2020-08-24 14:28 | Outpatient (BNVA) | payer BC, OTHER, SELFPAY | PROVIDERS: PCP Family Medicine; Visit Provider Podiatrist Foot & Ankle Surgery | DX: Z98.890 Other specified postprocedural states (principal) | CPT/HCPCS: 73610 ==

== ENCOUNTER → 2020-09-23 09:23 | Outpatient (BNVA) | payer BC, OTHER, SELFPAY | PROVIDERS: PCP Family Medicine; Visit Provider Podiatrist Foot & Ankle Surgery | DX: S82.391A Other fracture of lower end of right tibia, initial encounter for closed fracture (principal); X58.XXXA Exposure to other specified factors, initial encounter | CPT/HCPCS: 73610 ==

== ENCOUNTER 2020-09-23 13:37 | Outpatient (CLI) | payer BC, OTHER, SELFPAY | END 2020-09-23 13:38 | disposition home or self-care (01) | LOC: SPT 13:38 | PROVIDERS: PCP Family Medicine; Visit Provider Podiatrist Foot & Ankle Surgery | DX: Z46.89 Encounter for fitting and adjustment of other specified devices (principal); M72.2 Plantar fascial fibromatosis | CPT/HCPCS: 97760; L1902 ==

== ENCOUNTER → 2020-10-05 13:46 | Outpatient (BNVA) | payer BC, OTHER, SELFPAY | PROVIDERS: PCP Family Medicine; Visit Provider Podiatrist Foot & Ankle Surgery | DX: Z48.89 Encounter for other specified surgical aftercare (principal); S82.841D Displaced bimalleolar fracture of right lower leg, subsequent encounter for closed fracture with routine healing; W18.30XD Fall on same level, unspecified, subsequent encounter; Y92.003 Bedroom of unspecified non-institutional (private) residence as the place of occurrence of the external cause | CPT/HCPCS: 73610 ==

== ENCOUNTER 2020-10-15 14:13 | Outpatient (CLI) | payer BC, OTHER, SELFPAY ==
--- NOTE | 2020-10-15 14:18 | XR_ITS ---
WS: [id number] Exam: XR ankle RT min 3V* [id number] Date/Time of Exam: 10/15/2020 2:32 PM Reason For Exam: S82.841A - Displaced bimalleolar fracture of right lower ... Exam: XR ankle RT min 3V* [id number] Date/Time of Exam: 10/15/2020 2:32 PM Reason For Exam: S82.841A - Displaced bimalleolar fracture of right lower ... Comparison 10/05/2020. There is plate and screw fixation of the fracture distal fibula in anatomic position for healing. No positional change. There is also a cable fixation of the distal fibula and tibia. The ankle mortise i s intact. No other fractures are seen. XR/XR ankle RT min 3V* [id number] IMPRESSION: 1. Satisfactory internal orthopedic fixation involving a fracture of the distal fibula. No positional change.
== END 2020-10-15 14:14 | disposition home or self-care (01) ==
PROVIDERS: PCP Family Medicine; Visit Provider Podiatrist Foot & Ankle Surgery
DX: S82.841A Displaced bimalleolar fracture of right lower leg, initial encounter for closed fracture (principal); Z98.890 Other specified postprocedural states; X58.XXXA Exposure to other specified factors, initial encounter
CPT/HCPCS: 73610

== ENCOUNTER → 2020-11-16 08:53 | Outpatient (BNVA) | payer BC, OTHER, SELFPAY | PROVIDERS: PCP Family Medicine; Visit Provider Nurse Practitioner Family | DX: N39.0 Urinary tract infection, site not specified (principal) | CPT/HCPCS: 81003; 87086 ==

== ENCOUNTER → 2020-12-20 13:56 | Outpatient (BNVA) | payer BC, OTHER, SELFPAY | PROVIDERS: PCP Family Medicine; Visit Provider Podiatrist Foot & Ankle Surgery | DX: M79.673 Pain in unspecified foot (principal) | CPT/HCPCS: 73630 ==

== ENCOUNTER → 2020-12-29 08:42 | Outpatient (BNVA) | payer BC, OTHER, SELFPAY | PROVIDERS: PCP Family Medicine; Visit Provider Urology | DX: N39.0 Urinary tract infection, site not specified (principal) | CPT/HCPCS: 81003 ==

== ENCOUNTER → 2021-03-31 08:58 | Outpatient (BNVA) | payer BC, OTHER, SELFPAY | PROVIDERS: PCP Family Medicine; Visit Provider Urology | DX: N39.0 Urinary tract infection, site not specified (principal) | CPT/HCPCS: 81003 ==

== ENCOUNTER → 2021-06-28 15:58 | Outpatient (BNVA) | payer BC, OTHER, SELFPAY | PROVIDERS: PCP Family Medicine; Visit Provider Urology | DX: N39.0 Urinary tract infection, site not specified (principal); R53.83 Other fatigue | CPT/HCPCS: 80053; 81003; 85025 ==

== ENCOUNTER → 2021-08-29 08:59 | Outpatient (BNVA) | payer BC, OTHER, SELFPAY | PROVIDERS: PCP Family Medicine; Visit Provider Podiatrist Foot & Ankle Surgery | DX: M79.672 Pain in left foot (principal) | CPT/HCPCS: 73630 ==

== ENCOUNTER → 2021-09-07 09:30 | Outpatient (BNVA) | payer BC, OTHER, SELFPAY | PROVIDERS: PCP Family Medicine; Visit Provider Nurse Practitioner Family | DX: N39.0 Urinary tract infection, site not specified (principal); R39.11 Hesitancy of micturition | CPT/HCPCS: 81003 ==

== ENCOUNTER 2021-10-21 13:17 | Outpatient (CLI) | payer BC, OTHER, SELFPAY ==
--- NOTE | 2021-10-21 11:45 | MR_ITS ---
WS: [id number] MRI LEFT FOOT without CONTRAST. COMPARISON: 01/28/2020, radiograph 08/29/2021. Multiplanar, multisequence imaging is performed without contrast. Marker is placed along the medial foot at the level of the tarsal bones. Marker is closely associated with the distal tibialis posterior tendon. Questionable very minimal increased T2 signal along the t ibialis posterior tendon. The tendon itself appears normal caliber and signal. No widening of the Lis franc joint. No fractures or marrow edema. There is a small amount of fibrosis in the plantar aponeurosis attachment to the calcaneus. There is only intermediate signal suggesting this is not related to an acute injury and may be fibrosis and he aling or postsurgical change. No edema along the plantar surface of the foot. The Achilles tendon is normal. Normal course of the peroneus brevis and longus tendons. No fluid in the tendon sheaths. MR/MR foot LT wo con* [id number] IMPRESSION: 1. Minimal fibrosis at the plantar aponeurosis attachment to the calcaneus. No acute tear. 2. No acute fracture or marrow edema. 3. Very minimal peritendinous increased T2 signal suggesting edema along the d istal posterior tibialis tendon. No tendon abnormality.
== END 2021-10-21 13:18 | disposition home or self-care (01) ==
LOC: RAD 13:20
PROVIDERS: PCP Family Medicine; Visit Provider Podiatrist Foot & Ankle Surgery
DX: M76.822 Posterior tibial tendinitis, left leg (principal)
CPT/HCPCS: 73718

== ENCOUNTER → 2021-11-09 09:47 | Outpatient (BNVA) | payer BC, OTHER, SELFPAY | PROVIDERS: PCP Family Medicine; Visit Provider Nurse Practitioner Family | DX: N39.0 Urinary tract infection, site not specified (principal) | CPT/HCPCS: 87086 ==

== ENCOUNTER → 2021-11-14 09:25 | Outpatient (BNVA) | payer BC, OTHER, SELFPAY | PROVIDERS: PCP Family Medicine; Visit Provider Nurse Practitioner Family | DX: N39.0 Urinary tract infection, site not specified (principal) | CPT/HCPCS: 81003 ==

== ENCOUNTER → 2021-12-23 15:17 | Outpatient (BNVA) | payer BC, OTHER, SELFPAY | PROVIDERS: PCP Family Medicine; Visit Provider Podiatrist Foot & Ankle Surgery | DX: S92.414A Nondisplaced fracture of proximal phalanx of right great toe, initial encounter for closed fracture (principal); W18.39XA Other fall on same level, initial encounter | CPT/HCPCS: 73630 ==

== ENCOUNTER → 2021-12-30 12:59 | Outpatient (BNVA) | payer BC, OTHER, SELFPAY | PROVIDERS: PCP Family Medicine; Visit Provider Podiatrist Foot & Ankle Surgery | DX: S92.414D Nondisplaced fracture of proximal phalanx of right great toe, subsequent encounter for fracture with routine healing (principal); S93.621D Sprain of tarsometatarsal ligament of right foot, subsequent encounter; W17.2XXD Fall into hole, subsequent encounter | CPT/HCPCS: 73600; 73630 ==

== ENCOUNTER 2022-01-11 10:23 | Outpatient (CLI) | payer BC, OTHER, SELFPAY ==
--- NOTE | 2022-01-11 10:15 | MR_ITS ---
WS: [id number] MRI OF THE RIGHT FOOT WITHOUT GADOLINIUM ENHANCEMENT. INDICATION: Possible Lisfranc fracture TECHNIQUE: Coronal PD, coronal T2, axial T2 axial PD axial T1 sagittal T1 and sagittal STIR imaging FINDINGS: Mild hallux valgus. Fluid 1st MTP. Intertarsal edema between the 1st and 2nd metatarsals. Diastases between the 1st and 2nd metatarsals . Widening between the 2nd metatarsal base and medial cuneiform compatible with Lisfranc injury. Edema in the 2nd metatarsal head. Ununited fracture involving the base of the 2nd metatarsal with concepción ma. Edema involving the 2nd metatarsal base extending into the shaft. Remaining metatarsals demonstra te normal bone marrow signal. Small amount of fluid at the 1st MTP. Proximal visualized phalanges are normal in appearance. MR/MR foot RT wo con* [id number] IMPRESSION: 1. 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 Diffuse soft tissue edema between the 1st and 2nd metatarsals due to instab ility with Lisfranc injury. 3. Edema extends into the 2nd metatarsal shaft and head of the 2nd metatarsal. 4. Mild hallux valgus with fluid at the 1st MTP. 5. No other acute findings. .
== END 2022-01-11 10:24 | disposition home or self-care (01) ==
LOC: RAD 10:27
PROVIDERS: PCP Family Medicine; Visit Provider Podiatrist Foot & Ankle Surgery
DX: S99.921A Unspecified injury of right foot, initial encounter (principal); M20.11 Hallux valgus (acquired), right foot; R60.0 Localized edema; X58.XXXA Exposure to other specified factors, initial encounter
CPT/HCPCS: 73718

== ENCOUNTER 2022-01-19 07:08 | Day surgery (SDC) | payer BC, OTHER, SELFPAY ==
[2022-01-17 11:55] VITALS: BMI 27.1
[2022-01-19] VITALS (8 sets, daily range): BP systolic 107–138; BP diastolic 56–85; PULSE 74–91; RESP 10–16; TEMP 36.6–36.7; O2SAT 98–100
--- NOTE | 2022-01-19 | XR_ITS ---
WS: [id number] XR foot RT 2V [id number] REASON FOR EXAM: arthrodesis FINDINGS: Long oblique screw arthrodesis through the medial cuneiform into the base of the second metatarsal. The surgical appliance appears in proper position and alignment. XR/XR foot RT 2V [id number] IMPRESSION: Midfoot to forefoot arthrodesis as above.
--- NOTE | 2022-01-19 05:55 | W.PM.OPSUD ---
Surgery/Procedure H&P Update DATE OF PROCEDURE: January 19, 2022 DATE H&P PERFORMED: 01/16/22 CHANGES TO PREVIOUS DOCUMENTATION: None PREOP DIAGNOSIS: Right Lisfranc fracture PRIMARY INDICATION FOR PROCEDURE: Lisfranc fracture right foot PLANNED PROCEDURE: Operation Date: 01/19/22 08:50 Proposed Procedures p Open reduction internal fixation versus arthrodesis right second tarsometatarsal joint 31058, 58928, S93.324A(Right) - Sebastián Montoya DPM
--- NOTE | 2022-01-19 05:57 | P.OP_ITS ---
Operative Report Date of procedure: January 19, 2022 Pre-op diagnosis: Right Lisfranc fracture. Post-op diagnosis: Right Lisfranc fracture. Post-op findings: Stabilization of Lisfranc fracture dislocation, right foot. Procedure done: Open reduction internal fixation right second metatarsal with Lisfranc involvement. CPT code 19026 Implants: [place] 28 4 mm headed solid screw with washer. 4-0 nylon. Specimens removed/disposition: None Pathology: None Surgeon: Sebastián Montoya D.P.M. Chief Nursing Executive: Radha Estimated blood loss: 5 See intraoperative documentation IV fluids: None Urine output: None Complications: None Findings: Stabilize Lisfranc complex and right second metatarsal. Brief History: Patient stepped in a hole injuring her right foot.? X-ray negative for acute fracture.? Date of injury 12/23/2021. MRI right foot has been finalized, radiology report significant for Lisfranc ligament interruption and second metatarsal base fracture with diastases at second and first metatarsal bases indicative of unstable Lisfranc fracture dislocation. Discussed a variety of treatment options.? Recommended open reduction internal fixation versus primary arthrodesis pending intraoperative findings and amount of instability.? Patient is agreeable like to proceed.? I reviewed at length with the patient, the risks, potential complications, benefits, alternatives, expectations, and typical outcomes associated with the surgery. The risks and potential complications were explained in detail, including but not limited to infection, wound dehiscence or soft tissue complications, bleeding and hematoma, chronic edema, neuritis or nerve damage producing numbness or chronic pain, CRPS, failure to relieve pain or worsening pain, thick / painful / unsightly scar, limited motion / stiffness, malposition, delayed union, malunion, or nonunion, fracture, reaction to implants, anesthetic complications, venous thromboembolism, and deformity recurrence.? I discussed the notion of no regrets with the patient as it pertains to complications and outcomes. The patient seemed to understand the nature of the proposed care and required convalescence. They asked appropriate questions, answered to their satisfaction. They are aware no guarantees can be made as to a satisfactory outcome and they understand there may be other possible unforeseen complications or outcomes not listed here that will be treated accordingly if they arise. There were no written or implied guarantees given to the patient. They gave informed consent to proceed. Patient will require a wheelchair and handicap placard, this will be sent to [place] [facility] [employer] [facility].? Patient is not a candidate for crutches due to shoulder pain and poor upper body bone/strength and increased fall risk.? Patient will rule require strict nonweightbearing to the right lower extremity for 8 to 12 weeks postoperatively necessitating wheelchair. Procedure: Under mild sedation the patient was brought to the operating room and remained on the gurney in supine position. A timeout was performed. Anesthesia was administered by the anesthesia service. Local anesthesia was injected by myself consisting of one-to-one mixture Exparel and Marcaine plain total of 20 cc in a proximal John block fashion to the right foot. Well-padded pneumatic tourniquet was applied to the right ankle. The right lower extremity was then scrubbed, prepped and draped utilizing normal aseptic technique. Right foot was exanguinated with a Esmarch bandage and the tourniquet was inflated to 250 mmHg. Attention was directed to the right foot, bony landmarks were palpated at medial cuneiform as well as second metatarsal. Utilizing C arm the Lisfranc complex was evaluated under stress. There is diastases at the first intermetatarsal space when loading utilizing live C arm. I did not appreciate instability at these third, fourth or fifth tarsometatarsal joints. I did not appreciate instability at the first metatarsal base and medial cuneiform with loading in the sagittal plane as well as transverse plane utilizing live C arm. Findings were indicative of Lisfranc ligament instability as well as second metatarsal fracture of the right foot. Utilizing standard AO technique and a lag technique a [place] 28 4.0 mm headed solid screw was advanced from proximal medial to distal lateral across the Lisfranc joint, the homerun screw was placed appropriately in the AP view, lateral view and oblique view and purchased the lateral cortex of the second metatarsal base without violating adjacent metatarsal or joints. Excellent apposition was appreciated intraoperatively and reduction of the first intermetatarsal angle with compression appreciated. Under stress views no further diastases was appreciated at the Lisfranc ligament interruption. The incision was flushed with saline solution followed by closure with 4-0 nylon this was a small incision medially at the medial cuneiform and dorsally at the lateral aspect of the second metatarsal base. The incisions were then dressed with Adaptic, sterile 4 x 4's, Kerlix, Tato wrap followed by application of a cam boot to the right lower extremity. Tourniquet was then deflated and a prompt hyperemic response is noted to the distal digits of the right foot. Patient tolerated the procedure and anesthesia well and was transferred to the PACU with vital signs stable and vascular status intact. Following a period of postoperative monitoring she will be discharged home is to remain strict nonweightbearing. Has a wheelchair to facilitate this. Was given at home care instructions, follow-up as well as my cell phone number to contact me with any postoperative questions or concerns.
[2022-01-19 07:40] LABS: Glucose Point of Care 118 mg/dL (70-110)
[2022-01-19] MEDS: sodium chloride 0.9% 1,000 ML 30 ML IV (07:42)
--- NOTE | 2022-01-19 08:13 | ANES.PREANE2 ---
Pre-Anesthetic Assessment Height/Weight: Height 1.78 m Weight 85.729 kg Temp Pulse Resp BP Pulse Ox O2 Del Method 98.1 F 91 16 138/79 100 01/19/22 07:26 01/19/22 07:26 01/19/22 07:26 01/19/22 07:26 01/19/22 07:26 01/19/22 07:26 Preop Diagnosis: Right Lisfranc fracture dislocation Operation Date: 01/19/22 08:50 Proposed Procedures p Open reduction internal fixation versus arthrodesis right second tarsometatarsal joint 77198, 29162, S93.324A(Right) - Sebastián Montoya DPM Familial anesthetic complications: None Was Beta Andrea taken within 24 hours: N/A Was Clonidine taken within 24 hours: N/A Last intake: Intake Last Liquid Date 01/18/22 Last Liquid Time 18:00 Last Solid Date 01/18/22 Last Solid Time 22:30 Social No alcohol and No tobacco Exam alert, oriented x 3, clear to auscultation bilaterally and regular rate & rhythm Airway Mallampati: Class II Dentition: full GI Gastroesophageal Reflux Disease ulcerative colitis Metabolic Diabetes Mellitus, Hyperlipidemia and Thyroid Disease [facility] [place] polymyositis Anesthetic Plan ASA status: 3 Anesthesia: General and Regional (specify below) Medications/Allergies Home Medications Medication Instructions Recorded Confirmed Last Taken Type acetaminophen 650 mg 1,300 mg PO PRN PRN Pain 03/27/19 01/19/22 01/18/22 History tablet,extended release (Tylenol Arthritis Pain) gabapentin 600 mg tablet 600 - 1,200 mg PO BEDTIME 03/27/19 01/17/22 01/16/22 History glimepiride 2 mg tablet (Amaryl) 2 mg PO DAILY 03/27/19 01/19/22 01/18/22 History lidocaine 5 % topical patch 2 patch topical QNOON PRN Pain 03/27/19 01/19/22 01/05/22 History liothyronine 5 mcg tablet (Cytomel) 5 mcg PO DAILY see pharmacy 03/27/19 01/17/22 01/17/22 History comment-last filled 11/27/19 90d/s potassium chloride 20 mEq 20 meq PO DAILY 03/27/19 01/19/22 01/12/22 History tablet,extended release(part/cryst) zolpidem 10 mg tablet 10 mg PO BEDTIME PRN Sleep 03/27/19 01/19/22 01/18/22 History Sole Supports #1 ea 04/14/20 01/16/22 Unknown Rx albuterol sulfate 90 mcg/actuation 2 puff inhalation Q4H PRN 07/18/20 01/17/22 2 Weeks Ago History aerosol inhaler (ProAir HFA) Shortness Of Breath ~08/05/20 cholecalciferol (vitamin D3) 1,250 50,000 unit PO Q7D 07/18/20 01/17/22 01/13/22 History mcg (50,000 unit) capsule fluticasone propionate 50 2 spray intranasal BEDTIME 07/18/20 01/19/22 01/18/22 History mcg/actuation nasal spray,suspension lisinopril 10 mg tablet 10 mg PO BEDTIME 07/18/20 01/19/22 01/18/22 History mupirocin 2 % topical ointment 1 applic topical TID PRN Rash 07/18/20 01/19/22 11/20/21 History (Centany) nortriptyline 50 mg capsule 150 mg PO BEDTIME 07/18/20 01/19/22 01/18/22 History rosuvastatin 5 mg tablet 5 mg PO QPM 07/18/20 01/19/22 01/18/22 History levothyroxine 137 mcg tablet 137 mcg PO DAILY 08/19/20 01/19/22 01/18/22 History pantoprazole 40 mg tablet,delayed 40 mg PO BID #14 tabs 08/30/20 01/19/22 01/18/22 Rx release (Protonix) baclofen 10 mg tablet 10 mg PO BEDTIME PRN Muscle Spasm 12/29/20 01/19/22 01/12/22 History lactulose 10 gram/15 mL oral 10 g PO TID PRN Constipation 12/29/20 01/19/22 12/20/21 History solution mesalamine 1.2 gram tablet,delayed 4.8 g PO DAILY 30 days #120 tabs 03/28/21 01/17/22 01/17/22 Rx release loratadine 10 mg tablet (Claritin) 10 mg PO DAILY PRN Allergy Symptoms 03/31/21 01/19/22 01/18/22 History tamsulosin 0.4 mg capsule 0.4 mg PO .at bedtime #30 caps 09/07/21 01/19/22 01/18/22 Rx Wheel Chair #1 ea 01/16/22 01/16/22 Unknown Rx sulfamethoxazole 800 1 tab PO BID 01/17/22 01/19/22 01/18/22 History mg-trimethoprim 160 mg tablet hydrocodone 10 mg-acetaminophen 1 tab PO Q6H PRN pain #28 tabs 01/19/22 Unknown Rx 325 mg tablet Allergies Allergy/AdvReac Type Severity Reaction Status Date / Time No Known Allergies Allergy Verified 01/17/22 11:49 Current Medications Generic Name Dose Route Start Last Admin Trade Name Freq PRN Reason Stop Dose Admin Sodium Chloride 1,000 mls @ 30 mls/hr 01/19/22 07:15 01/19/22 07:42 Sodium Chloride 0.9% IV 01/20/22 07:14 30 mls/hr .Q24H JOSIAH Administration PFSH Anesthesia Medical History Adrenal insufficiency Cervical disc disease Cervical radiculopathy Degenerative lumbar disc Polymyositis PVCs (premature ventricular contractions) Stopped taking metoprolol due to weight gain Recurrent UTI Surgical History H/O brain surgery H/O esophagogastroduodenoscopy H/O: hysterectomy History of colonoscopy (08/19/20) History of open reduction and internal fixation (ORIF) procedure right ankle bimalleolar fx Hx of bilateral breast reduction surgery Hx of neck surgery 06/2013 C4 C5 C6 [facility] Dr. Chris Adair [facility] Home 12/29/19 C5 C6 C7 Status post laparoscopic cholecystectomy Family History Son Cancer BLADDER CANCER Mother Cancer COLON CANCER Diabetes Father Diabetes Social History Smoking and tobacco status: never smoked Alcohol intake: never Adopted: No Caregiver/support person: No Lives independently: No Household members: spouse Marital status: Current occupational status: disabled History of recent travel: No Data Anesthesia Cardiac Studies: Echocardiogram Ultrasound 07/18/20
--- NOTE | 2022-01-19 08:14 | ANES.PROC ---
Anesthesia Procedures Procedure/Date: 01/19/22 Nerve Block ^: Nerve Block 1: Main Anesthesia: general anesthesia Time Out Performed: Yes Consent: requested by attending/covering physician, from patient, from other, risks and benefits reviewed and patient agrees to proceed Nerve block location: popliteal (R) Anesthesia monitors applied: pulse oximetry, EKG, BP cuff and oxygen Nerve block position: supine Anesthetic Used: ropivicaine 0.5% (30 ml) and with decadron (4 mg) Ultrasound used to: recognize landmarks Interscalene/Femoral BLK: 4 stimuplex 21 g needle used for position and inplane approach, visualize local anesthetic spread and no vascular puncture identified Injection: neg aspiration of heme Patient Tolerated Procedure: well and no complications Complications: none
[2022-01-19] MEDS: ceFAZolin 2,000 MG in sodium chloride 0.9% (plus) 50 ML 100 MG IV (08:23)
--- NOTE | 2022-01-19 15:52 | ANE.PACU2 ---
Inpatient post-anesthesia follow up: Airway intact: Yes Vital signs: Temperature 98 F Pulse Rate 74 Respiratory Rate 16 Blood Pressure 128/83 Pulse Oximetry 99 Oxygen Delivery Me thod Room Air Oxygen Flow Rate 6 Fraction of Inspir ed Oxygen Hydration adequate: Yes Nausea and vomiting: No Pain level: 1 Mental status: Baseline
== END 2022-01-19 10:20 | disposition home or self-care (01) ==
PROVIDERS: PCP Family Medicine; Visit Provider Podiatrist Foot & Ankle Surgery
PROC: (CPT 28485; principal; 2022-01-19 08:40)
DX: S93.324A Dislocation of tarsometatarsal joint of right foot, initial encounter (principal); W22.8XXA Striking against or struck by other objects, initial encounter; K21.9 Gastro-esophageal reflux disease without esophagitis; E11.9 Type 2 diabetes mellitus without complications; E78.5 Hyperlipidemia, unspecified
CPT/HCPCS: 28485; 36416; 73620; 76000; 82962; C1713; C9290; J0690; J1100; J2250; J2405; J2704; J2795; J3010; J3490; J7030

== ENCOUNTER → 2022-02-02 15:21 | Outpatient (BNVA) | payer BC, OTHER, SELFPAY | PROVIDERS: PCP Family Medicine; Visit Provider Podiatrist Foot & Ankle Surgery | DX: Z98.890 Other specified postprocedural states (principal); S92.324A Nondisplaced fracture of second metatarsal bone, right foot, initial encounter for closed fracture; S93.324A Dislocation of tarsometatarsal joint of right foot, initial encounter; S99.921A Unspecified injury of right foot, initial encounter; X58.XXXA Exposure to other specified factors, initial encounter | CPT/HCPCS: 73630 ==

== ENCOUNTER → 2022-02-16 07:43 | Outpatient (BNVA) | payer BC, OTHER, SELFPAY | PROVIDERS: PCP Family Medicine; Visit Provider Podiatrist Foot & Ankle Surgery | DX: Z98.890 Other specified postprocedural states (principal); S92.324A Nondisplaced fracture of second metatarsal bone, right foot, initial encounter for closed fracture; S99.921A Unspecified injury of right foot, initial encounter; X58.XXXA Exposure to other specified factors, initial encounter | CPT/HCPCS: 73630 ==

== ENCOUNTER → 2022-02-21 16:20 | Outpatient (BNVA) | payer BC, OTHER, SELFPAY | PROVIDERS: PCP Family Medicine; Visit Provider Urology | DX: N30.20 Other chronic cystitis without hematuria (principal) | CPT/HCPCS: 81003 ==

== ENCOUNTER → 2022-03-09 15:37 | Outpatient (BNVA) | payer BC, OTHER, SELFPAY | PROVIDERS: PCP Family Medicine; Visit Provider Podiatrist Foot & Ankle Surgery | DX: Z98.890 Other specified postprocedural states (principal); S92.324A Nondisplaced fracture of second metatarsal bone, right foot, initial encounter for closed fracture; S99.921A Unspecified injury of right foot, initial encounter; X58.XXXA Exposure to other specified factors, initial encounter | CPT/HCPCS: 73630 ==

== ENCOUNTER → 2022-03-23 14:31 | Outpatient (BNVA) | payer BC, OTHER, SELFPAY | PROVIDERS: PCP Family Medicine; Visit Provider Podiatrist Foot & Ankle Surgery | DX: Z98.890 Other specified postprocedural states (principal); S92.324A Nondisplaced fracture of second metatarsal bone, right foot, initial encounter for closed fracture; S99.921A Unspecified injury of right foot, initial encounter; X58.XXXA Exposure to other specified factors, initial encounter; M21.611 Bunion of right foot | CPT/HCPCS: 73630 ==

== ENCOUNTER → 2022-04-03 11:17 | Outpatient (BNVA) | payer BC, OTHER, SELFPAY | PROVIDERS: PCP Family Medicine; Visit Provider Podiatrist Foot & Ankle Surgery | DX: S99.921S Unspecified injury of right foot, sequela (principal); X58.XXXS Exposure to other specified factors, sequela; M21.611 Bunion of right foot; M19.071 Primary osteoarthritis, right ankle and foot; T84.84XA Pain due to internal orthopedic prosthetic devices, implants and grafts, initial encounter; Y79.2 Prosthetic and other implants, materials and accessory orthopedic devices associated with adverse incidents | CPT/HCPCS: 73630 ==

== ENCOUNTER 2022-04-07 07:00 | Day surgery (SDC) | payer BC, OTHER, SELFPAY ==
[2022-04-06 12:17] VITALS: BMI 27.8
[2022-04-07] VITALS (8 sets, daily range): BP systolic 96–131; BP diastolic 58–84; PULSE 70–91; RESP 16–18; TEMP 36.2–36.6; O2SAT 96–100
--- NOTE | 2022-04-07 | XR_ITS ---
WS: [id number] Right foot, C-arm fluoroscopy, 04/07/2022 Clinical Data: JENNIFER IMAGES Comparison: Right foot, 04/03/2022 Findings: Dr. Montoya performed an arthrodesis with a plate and screws of the articulation between the base of the right first metatarsal and the right first cuneiform. XR/XR foot RT 2V [id number] Impression: Arthrodesis of the right first metatarsal and right first cuneiform.
--- NOTE | 2022-04-07 06:22 | P.HPUD_ITS ---
Surgery/Procedure H&P Update DATE OF PROCEDURE: April 07, 2022 DATE H&P PERFORMED: 04/03/22 CHANGES TO PREVIOUS DOCUMENTATION: None PREOP DIAGNOSIS: Right Lisfranc fracture dislocation PRIMARY INDICATION FOR PROCEDURE: Left bunion. Left midfoot arthritis. Painful hardware left foot. PLANNED PROCEDURE: Operation Date: 04/07/22 08:45 Proposed Procedures p ?Right Lapidus bunionectomy.? Right second tarsometatarsal joint arthrodesis.? Deep hardware removal right [id number], 57895,M21.611,M19 .071,T84.84XA(Right) - Sebastián Montoya DPM s Arthrodesis Foot(Right) - BENJI Velázquez Hardware Removal(Right) - Sebastián Montoya DPM
[2022-04-07] MEDS: scopolamine 1.5 Patch 1 PATCH TRANSDERMA (07:23)
[2022-04-07] MEDS: sodium chloride 0.9% 1,000 ML 30 ML IV (07:24)
[2022-04-07 07:29] LABS: Glucose Point of Care 104 mg/dL (70-110)
--- NOTE | 2022-04-07 07:48 | P.ANESASSM_ITS ---
Pre-Anesthetic Assessment Height/Weight: Height 1.78 m Weight 87.997 kg Temp Pulse Resp BP Pulse Ox O2 Del Method 97.3 F L 91 18 119/81 98 04/07/22 07:07 04/07/22 07:07 04/07/22 07:07 04/07/22 07:07 04/07/22 07:07 04/07/22 07:15 Preop Diagnosis: Right bunion. Osteoarthritis right midfoot. Painful hardware right foot. Operation Date: 04/07/22 08:45 Proposed Procedures p ?Right Lapidus bunionectomy.? Right second tarsometatarsal joint arthrodesis.? Deep hardware removal right [id number], 85791,M21. 611,M19.071,T84.84XA(Right) - BENJI Velázquez Arthrodesis Foot(Right) - BENJI Velázquez Hardware Removal(Right) - Sebastián Montoya DPM Familial anesthetic complications: none Was Beta Andrea taken within 24 hours: N/A Was Clonidine taken within 24 hours: N/A Last intake: Intake Last Liquid Date 04/06/22 Last Liquid Time 19:00 Last Solid Date 04/06/22 Last Solid Time 19:00 Social No alcohol and No tobacco Exam alert, oriented x 3, clear to auscultation bilaterally and regular rate & rhythm Airway Submandibular: within normal limits Cervical ROM: within normal limits Mallampati: Class II Dentition: full Pulmonary Asthma CV/HEM Anemia GI Gastroesophageal Reflux Disease Metabolic Thyroid Disease chronic steroid Musc/skel Fibromyalgia Neuropsych Neuropathy Anesthetic Plan ASA status: 2 Anesthesia: Choice Medications/Allergies Home Medications Medication Instructions Recorded Confirmed Last Taken Type acetaminophen 650 mg 1,300 mg PO PRN PRN Pain 03/27/19 04/07/22 04/05/22 History tablet,extended release (Tylenol Arthritis Pain) gabapentin 600 mg tablet 600 - 1,200 mg PO BEDTIME 03/27/19 04/06/22 04/06/22 History glimepiride 2 mg tablet (Amaryl) 2 mg PO DAILY 03/27/19 04/06/22 04/05/22 History lidocaine 5 % topical patch 2 patch topical QNOON PRN Pain 03/27/19 04/07/22 03/24/22 History liothyronine 5 mcg tablet (Cytomel) 5 mcg PO DAILY see pharmacy 03/27/19 04/06/22 04/06/22 History comment-last filled 11/27/19 90d/s potassium chloride 20 mEq 20 meq PO DAILY 03/27/19 04/06/22 04/04/22 History tablet,extended release(part/cryst) zolpidem 10 mg tablet 10 mg PO BEDTIME PRN Sleep 03/27/19 04/06/22 04/06/22 History Sole Supports #1 ea 04/14/20 04/03/22 Unknown Rx albuterol sulfate 90 mcg/actuation 2 puff inhalation Q4H PRN 07/18/20 04/06/22 2 Weeks Ago History aerosol inhaler (ProAir HFA) Shortness Of Breath ~08/05/20 cholecalciferol (vitamin D3) 1,250 50,000 unit PO Q7D 07/18/20 04/06/22 03/31/22 History mcg (50,000 unit) capsule fluticasone propionate 50 2 spray intranasal BEDTIME 07/18/20 04/07/22 04/06/22 History mcg/actuation nasal spray,suspension lisinopril 10 mg tablet 10 mg PO BEDTIME 07/18/20 04/06/22 04/06/22 History mupirocin 2 % topical ointment 1 applic topical TID PRN Rash 07/18/20 04/06/22 11/20/21 History (Centany) nortriptyline 50 mg capsule 150 mg PO BEDTIME 07/18/20 04/06/22 04/06/22 History rosuvastatin 5 mg tablet 5 mg PO QPM 07/18/20 04/06/22 04/06/22 History levothyroxine 137 mcg tablet 137 mcg PO DAILY 08/19/20 04/06/22 04/06/22 History pantoprazole 40 mg tablet,delayed 40 mg PO BID #14 tabs 08/30/20 04/06/22 04/06/22 Rx release (Protonix) baclofen 10 mg tablet 10 mg PO BEDTIME PRN Muscle Spasm 12/29/20 04/07/22 03/24/22 History lactulose 10 gram/15 mL oral 10 g PO TID PRN Constipation 12/29/20 04/07/22 04/04/22 History solution loratadine 10 mg tablet (Claritin) 10 mg PO DAILY PRN Allergy Symptoms 03/31/21 04/07/22 04/06/22 History Wheel Chair #1 ea 01/16/22 04/03/22 Unknown Rx hydrocodone 10 mg-acetaminophen 1 tab PO Q6H PRN pain 7 days #28 04/07/22 Unknown Rx 325 mg tablet tabs Allergies Allergy/AdvReac Type Severity Reaction Status Date / Time No Known Allergies Allergy Verified 04/07/22 07:09 Current Medications Generic Name Dose Route Start Last Admin Trade Name Freq PRN Reason Stop Dose Admin Sodium Chloride 1,000 mls @ 30 mls/hr 04/07/22 07:15 04/07/22 07:24 Sodium Chloride 0.9% IV 04/08/22 07:14 30 mls/hr .Q24H JOSIAH Administration PFSH Anesthesia Medical History Adrenal insufficiency Cervical disc disease Cervical radiculopathy Chronic cystitis Degenerative lumbar disc Polymyositis PVCs (premature ventricular contractions) Stopped taking metoprolol due to weight gain Recurrent UTI Surgical History H/O brain surgery H/O esophagogastroduodenoscopy H/O: hysterectomy History of colonoscopy (08/19/20) History of open reduction and internal fixation (ORIF) procedure right ankle bimalleolar fx Hx of bilateral breast reduction surgery Hx of neck surgery 06/2013 C4 C5 C6 [facility] Dr. Chris Adair [facility] Home 12/29/19 C5 C6 C7 Status post laparoscopic cholecystectomy Family History Son Cancer BLADDER CANCER Mother Cancer COLON CANCER Diabetes Father Diabetes Social History Smoking and tobacco status: never smoked Alcohol intake: never Adopted: No Caregiver/support person: No Lives independently: No Household members: spouse Marital status: Current occupational status: disabled History of recent travel: No Data Anesthesia Cardiac Studies: Echocardiogram Ultrasound 07/18/20
[2022-04-07] MEDS: ceFAZolin 2,000 MG in sodium chloride 0.9% (plus) 50 ML 100 MG IV (08:35)
--- NOTE | 2022-04-07 09:46 | XR_ITS ---
WS: [id number] Right foot, 3 views, 04/07/2022 Clinical Data: post op Comparison: Right foot, 04/03/2022 Findings: The oblique screw fusing the right first cuneiform to the base of the right second metatarsal has bee n removed. There is a medial plate fusing the base of the right first metatarsal with the right fir st cuneiform with 4 orthopedic screws. There is a longitudinal screw aiding in the fusion extending f rom the base of the right first metatarsal into the right first cuneiform. There is internal fixation of a distal right fibular fracture unchanged. XR/XR foot RT min 3V* [id number] Impression: Arthrodesis of the right first metatarsal right first cuneiform joint.
[2022-04-07] MEDS: HYDROcodone-acetaminophen 10-325 mg Tablet 1 TAB PO (10:29)
--- NOTE | 2022-04-07 14:18 | ANE.PACU2 ---
Inpatient post-anesthesia follow up: Airway intact: Yes Vital signs: Temperature 98 F Pulse Rate 75 Respiratory Rate 18 Blood Pressure 125/78 Pulse Oximetry 100 Oxygen Delivery Me thod Room Air Oxygen Flow Rate 8 Fraction of Inspir ed Oxygen Hydration adequate: Yes Nausea and vomiting: No Pain level: 2 Mental status: Baseline
--- NOTE | 2022-04-07 19:49 | P.OP_ITS ---
Operative Report Date of procedure: April 07, 2022 Pre-op diagnosis: Preop Diagnosis Right bunion. Osteoarthritis right midfoot. Painful hardware right foot. Post-op diagnosis: Same Procedure done: Right Lapidus bunionectomy. CPT code 38233 Deep hardware removal right foot. CPT code 53304 Implants: Two [place] 28 primary Lapidus plate, right [place] 4 mm headed homerun screw [place] 3.5 mm locking and nonlocking screws 3-0 Vicryl, 4-0 Vicryl, 4-0 nylon Specimens removed/disposition: Two [place] screw and washer removed in total, waste Pathology: None Surgeon: Sebastián Montoya D.P.M. Net Trainer: Aspen Estimated blood loss: 5 See intraoperative documentation IV fluids: 0 Urine output: 0 Complications: None Brief History: Patient examined and evaluated, findings and treatment options were discussed with patient at length.? Patient has had a impressive progression of bunion deformity with increased first intermetatarsal angle since her Lisfranc injury, this is attributed to instability at the first tarsometatarsal joint.? She also describes an arthritic pain at the second tarsometatarsal joint and pain at retained hardware.? She is wishing to proceed with bunionectomy, hardware removal and possible arthrodesis of the right second tarsometatarsal joint pending intraoperative findings with instability arthrosis.? I discussed this approach, risks, benefits and expected recovery times.? I reviewed at length with the patient, the risks, potential complications, benefits, alternatives, expectations, and typical outcomes associated with the surgery. The risks and potential complications were explained in detail, including but not limited to infection, wound dehiscence or soft tissue complications, bleeding and hematoma, chronic edema, neuritis or nerve damage producing numbness or chronic pain, CRPS, failure to relieve pain or worsening pain, thick / painful / unsightly scar, limited motion / stiffness, malposition, delayed union, malunion, or nonunion, fracture, reaction to implants, anesthetic complications, venous thromboembolism, and deformity recurrence.? I discussed the notion of no regrets with the patient as it pertains to complications and outcomes. The patient seemed to understand the nature of the proposed care and required convalescence. They asked appropriate questions, answered to their satisfaction. They are aware no guarantees can be made as to a satisfactory outcome and they understand there may be other possible unforeseen complications or outcomes not listed here that will be treated accordingly if they arise. There were no written or implied guarantees given to the patient. They gave informed consent to proceed. Procedure: Under mild sedation the patient was brought to the operating room and remained on the gurney in supine position. A timeout was performed. Anesthesia was then administered by the anesthesia service. Local anesthesia was injected by myself consisting of 20 cc of 0.5% Marcaine plain in a proximal right John block fashion. Subcutaneously proximal to this and at the operative site 20 cc of Exparel was infiltrated in a grid like fashion. Well-padded pneumatic tourniquet was applied to the right ankle. The right lower extremity was then scrubbed, prepped and draped utilizing normal aseptic technique. Right foot was exanguinated with an Esmarch bandage and the tourniquet inflated to 250 mmHg. Tissue was directed over the previous cicatrix of the right foot medially to the medial cuneiform where a small incision was performed percutaneously and dissection down to the head of a retained hardware screw and washer was visualized directly and removed in total and passed from the operative field both screw and washer came out intact without fragmentation or failure. This was passed from operative field to be sent for waste. Next a curvilinear incision was made medial and parallel to the extensor houses longus tendon at the first metatarsal base and medial cuneiform joint with dissection carried down through subcutaneous tissue utilizing a combination of blunt and sharp technique down to the layer of periosteum and joint capsule. All bleeders were ligated and cauterized as necessary. Hypermobility at the first metatarsal base and medial cuneiform joint was appreciated intraoperatively. A linear capsulotomy and periosteal incision was performed followed by distraction of the first metatarsal base and medial cuneiform joint utilizing a self-retaining retractor. The base of the first metatarsal was denuded of all articular surface as well as the distal articular surface of the medial cuneiform being more aggressive laterally as to reduce the first intermetatarsal angle. After all cartilage was denuded the incision was irrigated with saline followed by subchondral drilling with a fenestrating drill bit both at the base of the first metatarsal and medial cuneiform distally. The first metatarsals was derotated and reduced closing down the first metatarsal angle followed by fixation utilizing standard AO technique a homerun screw from dorsal distal to proximal plantar across arthrodesis site utilizing a Two [place] 4.0 millimeter screw with excellent bony apposition and compression noted not violating the adjacent joint this was confirmed with intraoperative fluoroscopy in the AP, oblique and lateral view. Next a primary arthrodesis plate for Lapidus was fixated medially utilizing standard AO technique utilizing 3.5 mm locking and nonlocking screws with excellent bony apposition and compression noted. The Lapidus bunionectomy arthrodesis site was loaded and was appreciated to be robust intraoperatively with anatomic reduction of the first metatarsal and stability imparted to the arthrodesis site. Intraoperative manipulation of the second tarsometatarsal joint revealed no instability. The incisions were flushed with copious amounts of sterile skin solution followed by closure with 3-0 Vicryl at periosteum, 4-0 Vicryl subcutaneous tissue and 4-0 nylon at skin. Dressings consisting of Adaptic, sterile 4 x 4, Kerlix, Tato wrap and a cam boot was applied to the right lower extremity. The tourniquet was then deflated and a prompt hyperemic response was noted to the distal digits of the right foot. Patient tolerated the procedure and anesthesia well and was transferred to the PACU with vital signs stable and vascular status intact. Following a period of postop monitoring she will be discharged home is to remain nonweightbearing to the right foot elevate the right foot while resting. She was given at home care instructions as well as postoperative follow-up and my cell phone number to contact with any postoperative questions or concerns.
== END 2022-04-07 10:45 | disposition home or self-care (01) ==
PROVIDERS: PCP Family Medicine; Visit Provider Podiatrist Foot & Ankle Surgery
PROC: (CPT 28297; principal; 2022-04-07 08:25)
PROC: (CPT 20680; 2022-04-07 08:25)
DX: M21.611 Bunion of right foot (principal); M19.071 Primary osteoarthritis, right ankle and foot; T84.84XA Pain due to internal orthopedic prosthetic devices, implants and grafts, initial encounter; Y83.8 Other surgical procedures as the cause of abnormal reaction of the patient, or of later complication, without mention of misadventure at the time of the procedure; K21.9 Gastro-esophageal reflux disease without esophagitis; Z79.52 Long term (current) use of systemic steroids; M79.7 Fibromyalgia
CPT/HCPCS: 20680; 28297; 36416; 73620; 73630; 76000; 82962; C1713; C9290; J0690; J2370; J2704; J3010; J3490; J7030

== ENCOUNTER → 2022-04-20 14:09 | Outpatient (BNVA) | payer BC, OTHER, SELFPAY | PROVIDERS: PCP Family Medicine; Visit Provider Podiatrist Foot & Ankle Surgery | DX: Z98.890 Other specified postprocedural states (principal); T84.84XA Pain due to internal orthopedic prosthetic devices, implants and grafts, initial encounter; Y79.2 Prosthetic and other implants, materials and accessory orthopedic devices associated with adverse incidents; M21.611 Bunion of right foot; M19.071 Primary osteoarthritis, right ankle and foot | CPT/HCPCS: 73630 ==

== ENCOUNTER → 2022-05-04 14:03 | Outpatient (BNVA) | payer BC, OTHER, SELFPAY | PROVIDERS: PCP Family Medicine; Visit Provider Podiatrist Foot & Ankle Surgery | DX: Z98.890 Other specified postprocedural states (principal); M21.611 Bunion of right foot; M19.071 Primary osteoarthritis, right ankle and foot; T84.84XA Pain due to internal orthopedic prosthetic devices, implants and grafts, initial encounter; Y79.2 Prosthetic and other implants, materials and accessory orthopedic devices associated with adverse incidents | CPT/HCPCS: 73630 ==

== ENCOUNTER → 2022-05-18 12:55 | Outpatient (BNVA) | payer BC, OTHER, SELFPAY | PROVIDERS: PCP Family Medicine; Visit Provider Podiatrist Foot & Ankle Surgery | DX: Z98.890 Other specified postprocedural states (principal); M21.611 Bunion of right foot; M19.071 Primary osteoarthritis, right ankle and foot; T84.84XA Pain due to internal orthopedic prosthetic devices, implants and grafts, initial encounter; Y79.2 Prosthetic and other implants, materials and accessory orthopedic devices associated with adverse incidents | CPT/HCPCS: 73630 ==

== ENCOUNTER 2022-08-19 09:21 | Emergency (ER) | payer BC, OTHER, SELFPAY ==
[2022-08-19] VITALS (13 sets, daily range): BP systolic 94–133; BP diastolic 64–97; PULSE 78–94; RESP 16–165; TEMP 37.2; O2SAT 97–100
--- NOTE | 2022-08-19 09:24 | XRR_ITS ---
PROCEDURE INFORMATION: Exam: XR Chest Exam date and time: 08/19/2022 9:41 AM Age: 51 years old Clinical indication: Cough and dyspnea; Additional info: Dyspnea/cough TECHNIQUE: Imaging protocol: Radiologic exam of the chest. Views: 1 view. COMPARISON: CR XR chest 1V portable [id number] 07/18/2020 2:38 AM FINDINGS: Lungs: Normal lung volumes. No interstitial or air space opacities seen. Pleural spaces: No pleural effusion. No pneumothorax. Heart/Mediastinum: Normal heart size. Normal mediastinum. Midline trachea. Bones/joints: No acute osseous abnormalities seen. XR/XR chest 1V portable [id number] IMPRESSION: No acute cardiopulmonary disease seen on the chest radiograph.
--- NOTE | 2022-08-19 09:32 | ECG_ITS ---
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 Measurements Intervals Rice Rate: 88 P: 34 FL: 133 QRS: 43 QRSD: 97 T: 55 QT: 331 QTc: 401 Interpretive Statements SINUS RHYTHM Compared to ECG 07/18/2020 02:22:58 T-wave abnormality no longer present Electronically Signed On 08-19-2022 15:53:37 CDT by Sang Jennings M.D. [id number]
--- NOTE | 2022-08-19 09:46 | W.ED.SOB ---
HPI - SOB/Dyspnea General: Chief Complaint: Shortness of Breath/Dyspnea Stated Complaint: cp sob Time Seen by Provider: 08/19/22 09:24 Source: patient Mode of arrival: ambulatory History of Present Illness: HPI Narrative: 51-year-old female presents emergency room with chest discomfort and shortness of breath for last 2 weeks intermittently improved if she lays down she is normally on Prilosec. She has not really noticed anything that seems to make it better or worse beyond just laying down. No radiation of pain to the neck back or arms. No fever sweats chills, no productive cough. No change in bowel habits she has noticed a little bit more difficulty with emptying her bladder. MD elicited complaint: shortness of breath Pertinent past history: COPD Onset (ago): minute(s) Timing: constant Severity: mild Exacerbating factors: nothing Relieving factors: nothing Known history of: COPD Associated symptoms: Reports chest pain; Deny abdominal pain, chest congestion, cough, diaphoresis, dizziness, extremity pain, fever(s), hemoptysis, lightheadedness, myalgias, nausea, orthopnea, palpitations, paresthesias, polydipsia, polyuria, rash, sense of impending doom, syncope or vomiting Treatment prior to arrival: none Review of Systems Const: Denies: fever(s), chills, fatigue, malaise or diaphoresis ENMT: Denies: throat pain, ear or mastoid pain, nasal discharge or nasal congestion Card: Reports: chest pain; Denies: palpitations, lightheadedness, syncope or orthopnea Resp: Reports: dyspnea; Denies: productive cough, non-productive cough, wheezing, hemoptysis or chest congestion GI: Denies: abdominal pain, nausea or vomiting : Denies: flank pain, difficulty voiding, dysuria, urinary frequency or urinary urgency Musc: Denies: extremity pain Skin/Breast: Denies: rash or pruritus Neuro: Denies: dizziness Endo: Denies: polyuria or polydipsia PFSH ED PFSH: Medical History Adrenal insufficiency Cervical disc disease Cervical radiculopathy Chronic cystitis Degenerative lumbar disc Polymyositis PVCs (premature ventricular contractions) Stopped taking metoprolol due to weight gain Recurrent UTI Surgical History H/O brain surgery H/O esophagogastroduodenoscopy H/O: hysterectomy History of colonoscopy (08/19/20) History of open reduction and internal fixation (ORIF) procedure right ankle bimalleolar fx Hx of bilateral breast reduction surgery Hx of neck surgery 06/2013 C4 C5 C6 [facility] Dr. Chris Adair [facility] Home 12/29/19 C5 C6 C7 Status post laparoscopic cholecystectomy Family History Son Cancer BLADDER CANCER Mother Cancer COLON CANCER Diabetes Father Diabetes Social History Smoking and tobacco status: never smoked Alcohol intake: never Substance/Drug Use: never Adopted: No Caregiver/support person: No Lives independently: No Household members: spouse Marital status: Current occupational status: disabled Physical Exam Const: GENERAL APPEARANCE: cooperative and comfortable ORIENTATION/CONSCIOUSNESS: Yes awake, Yes oriented to person, Yes oriented to place and Yes oriented to time HENMT: COMMON NORMALS: normocephalic, atraumatic and hearing grossly normal bilaterally HEAD & SCALP: normocephalic and atraumatic Chest: OTHER: Chest pain mildly reproduced with palpation in the upper chest Resp: COMMON NORMALS: normal respiratory effort, No retractions, No use of accessory muscles and clear to auscultation bilaterally AUSCULTATION: clear to auscultation bilaterally Cardio: COMMON NORMALS: regular rate, regular rhythm and No murmurs present (Cardio) RATE: regular rate RHYTHM: regular rhythm GI: COMMON NORMALS: Soft to palpation and No hepatosplenomegaly present AUSCULTATION: Yes normoactive bowel sounds PALPATION: Yes Soft to palpation, No Tenderness to palpation present (GI), No Guarding due to palpation present (GI) and Yes No hepatosplenomegaly present Extremity: COMMON NORMALS: normal to inspection, capillary refill normal, no clubbing, cyanosis or edema, no calf tenderness and no pedal edema Neuro: SENSORIUM/ORIENTATION: Yes oriented to person, Yes oriented to place and Yes oriented to time Skin: COMMON NORMALS: no rashes or lesions noted GENERAL SKIN EXAM: no rashes or lesions noted Course Vital Signs: Vital signs: Vital Signs Temperature 98.9 F 08/19/22 09:29 Pulse Rate 78 08/19/22 12:00 Respiratory Rate 20 H 08/19/22 12:00 Blood Pressure 116/79 08/19/22 12:00 Pulse Oximetry 99 08/19/22 12:00 Oxygen Delivery Me thod Room Air 08/19/22 09:29 MDM - SOB/Dyspnea Medical Decision Making EKG cardiac enzymes negative. Pain is reproduced with palpation on the mid sternum. She also states she does have a lot of reflux she takes Prilosec once daily. Reviewed labs and imaging findings the patient will increase her Prilosec to twice daily for 14 days then decrease to once daily. Return if has further problems follow-up with primary care. Medical Records I reviewed the patient's medical records. Lab Data I reviewed the patient's lab results. 08/19/22 09:38 08/19/22 09:38 Labs/Radiology: Radiology Impressions Chest X-Ray 08/19/22 09:24 IMPRESSION: No acute cardiopulmonary disease seen on the chest radiograph. Laboratory Results WBC 7.3 10^3/uL (4.0-10.0) 08/19/22 09:38 RBC 4.81 10^6/uL (4.1-5.3) 08/19/22 09:38 Hgb 13.6 g/dL (11.5-15.3) 08/19/22 09:38 Hct 41.2 % (37.0-47.0) 08/19/22 09:38 MCV 85.7 fl (81-99) 08/19/22 09:38 MCH 28.3 pg (28.0-34.0) 08/19/22 09:38 MCHC 33.0 g/dL (30.0-36.0) 08/19/22 09:38 RDW 13.1 % (12.1-15.1) 08/19/22 09:38 Plt Count 297 10^3/cmm (130-400) 08/19/22 09:38 MPV 9.7 fL (7.4-10.4) 08/19/22 09:38 Neut % (Auto) 61.2 % 08/19/22 09:38 Lymph % (Auto) 29.4 % 08/19/22 09:38 [place] % (Auto) 6.3 % 08/19/22 09:38 Eos % (Auto) 1.4 % 08/19/22 09:38 Baso % (Auto) 0.6 % 08/19/22 09:38 Neut # (Auto) 4.45 10^3/uL (1.8-7.7) 08/19/22 09:38 Lymph # (Auto) 2.1 10^3/uL (0.8-4.8) 08/19/22 09:38 [place] # (Auto) 0.5 10^3/uL (0.2-0.9) 08/19/22 09:38 Eos # (Auto) 0.1 10^3/uL (0.0-0.8) 08/19/22 09:38 Baso # (Auto) 0.0 10^3/uL (0.0-0.1) 08/19/22 09:38 Nucleated RBC % (auto) 0 % 08/19/22 09:38 Nucleated RBCs # 0.0 /100WBC 08/19/22 09:38 Sodium 135 mmol/L (136-145) L 08/19/22 09:38 Potassium 4.6 mmol/L (3.5-5.1) 08/19/22 09:38 Chloride 99 mmol/L (98-107) 08/19/22 09:38 Carbon Dioxide 25 mmol/L (22-29) 08/19/22 09:38 Anion Gap 15.6 (5-19) 08/19/22 09:38 BUN 13 mg/dL (6-20) 08/19/22 09:38 Creatinine 1.0 mg/dL (0.5-0.9) H 08/19/22 09:38 GFR Calculation 58.5 mL/min (90-130) L 08/19/22 09:38 Glucose 125 mg/dL (65-115) H 08/19/22 09:38 Calculated Osmolality 282 mOsm/kg (285-295) L 08/19/22 09:38 Calcium 9.6 mg/dL (8.5-10.5) 08/19/22 09:38 Total Bilirubin 0.2 mg/dL (0.15-1.2) 08/19/22 09:38 AST 15 U/L (0-32) 08/19/22 09:38 ALT 18 U/L (0-33) 08/19/22 09:38 Alkaline Phosphatase 88 U/L (35-105) 08/19/22 09:38 Troponin T Baseline 10 ng/L (0-10) 08/19/22 09:38 Troponin T 120 Minute 9.17 ng/L (0-10) 08/19/22 11:26 Delta Troponin T -0.83 ABS# (0-10) L 08/19/22 11:26 Total Protein 7.2 g/dL (6.6-8.7) 08/19/22 09:38 Albumin 4.6 g/dL (3.5-5.2) 08/19/22 09:38 Globulin 2.6 g/dL (1.3-4.6) 08/19/22 09:38 Discharge Plan Discharge Patient Disposition: Home Clinical Impression: Chest wall pain, GERD (gastroesophageal reflux disease) Condition: Stable Prescriptions: No Action (DME) Sole Supports See Rx Instructions .Route .MEDSUPPLY Qty: 1 0RF Rx Instructions: As directed lactulose 10 gram/15 mL solution 10 g PO BID PRN (Reason: Constipation) (DME) Wheel Chair See Rx Instructions .Route .MEDSUPPLY Qty: 1 0RF Rx Instructions: As directed by HOME lisinopril 10 mg tablet 10 mg PO BEDTIME Hold Instructions: Resume on 07/28/20. mupirocin [Centany] 2 % ointment 1 applic TOPICAL TID PRN (Reason: Rash) albuterol sulfate [ProAir HFA] 90 mcg/actuation Hfa Aerosol Inhaler 1 puff INHALATION Q4H PRN (Reason: Shortness Of Breath) fluticasone propionate 50 mcg/actuation [place],Suspension 2 spray INTRANASAL BEDTIME nortriptyline 50 mg capsule 150 mg PO BEDTIME rosuvastatin 5 mg tablet 5 mg PO QPM cholecalciferol (vitamin D3) 1,250 mcg (50,000 unit) capsule 50,000 unit PO Q7D Rx Instructions: on sunday loratadine [Claritin] 10 mg tablet 10 mg PO DAILY PRN (Reason: Allergy Symptoms) gabapentin 600 mg tablet 600 mg PO BEDTIME glimepiride [Amaryl] 2 mg tablet 2 mg PO BEDTIME acetaminophen [Tylenol Arthritis Pain] 650 mg Tablet Extended Release 1,300 mg PO Q6H PRN (Reason: Pain) potassium chloride 20 mEq tablet,ER particles/crystals 20 meq PO DAILY PRN (Reason: unknown) lidocaine 5 % adhesive patch,medicated See Rx Instructions .ROUTE .COMPLEX Rx Instructions: apply 2 patches topically on for 12 hours, off for 12 hours prn zolpidem 10 mg tablet 10 mg PO BEDTIME PRN (Reason: Sleep) baclofen 10 mg tablet 10 mg PO BEDTIME PRN (Reason: Muscle Spasm) levothyroxine 137 mcg Tablet 137 mcg PO BEDTIME hydroxyzine HCl 25 mg tablet 25 mg PO TID PRN (Reason: Anxiety) buprenorphine-naloxone 8-2 mg film 1 film buccal QAM Trintellix 10 mg tablet 10 mg PO QAM sulfamethoxazole-trimethoprim 800-160 mg tablet 2 tab PO BEDTIME omeprazole 40 mg capsule,delayed release(DR/EC) 40 mg PO BEDTIME ipratropium bromide 21 mcg (0.03 %) spray,non-aerosol 2 spray INTRANASAL TID Cytomel 25 mcg Tablet 25 mcg PO DAILY Discharge Orders: Discharge ED (Routine); Ordered 08/19/22 Ordered By: Alexandre Hernandez Referrals: Maliha Tijerina MD [Primary Care Provider] - Patient Instructions: Opioid Safety, Pain Management Activity Restrictions/Additional Instructions: Increase your omeprazole to 40 mg twice a day for the next 14 days then go back to once daily. 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
[2022-08-19 09:48] LABS: Basophils % 0.6 %; Eosinophils # 0.1 10^3/uL (0.0-0.8); Eosinophils % 1.4 %; Hematocrit 41.2 % (37.0-47.0); Hemoglobin 13.6 g/dL (11.5-15.3); Lymphocytes # 2.1 10^3/uL (0.8-4.8); Lymphocytes % 29.4 %; Mean Corpuscular Hemoglobin 28.3 pg (28.0-34.0); Mean Corpuscular Volume 85.7 fl (81-99); Mean Platelet Volume 9.7 fL (7.4-10.4); Monocytes # 0.5 10^3/uL (0.2-0.9); Monocytes % 6.3 %; Neutrophils # 4.45 10^3/uL (1.8-7.7); Neutrophils % 61.2 %; Nucleated Red Blood Cells % 0 %; Platelet Count 297 10^3/cmm (130-400); Red Blood Count 4.81 10^6/uL (4.1-5.3); Red Cell Distribution Width 13.1 % (12.1-15.1); White Blood Count 7.3 10^3/uL (4.0-10.0)
[2022-08-19 10:06] LABS: Troponin(5th) Baseline 10 ng/L (0-10)
[2022-08-19 10:08] LABS: Alanine Aminotransferase 18 U/L (0-33); Albumin Level 4.6 g/dL (3.5-5.2); Alkaline Phosphatase 88 U/L (35-105); Anion Gap 15.6 (5-19); Aspartate Amino Transferase 15 U/L (0-32); Blood Urea Nitrogen 13 mg/dL (6-20); Calcium 9.6 mg/dL (8.5-10.5); Carbon Dioxide 25 mmol/L (22-29); Chloride 99 mmol/L (98-107); Globulin 2.6 g/dL (1.3-4.6); Glomerular Filtration Rate 58.5 mL/min (90-130); Glucose 125 mg/dL (65-115); Osmolality Calculated 282 mOsm/kg (285-295); Potassium 4.6 mmol/L (3.5-5.1); Sodium 135 mmol/L (136-145); Total Bilirubin 0.2 mg/dL (0.15-1.2); Total Protein 7.2 g/dL (6.6-8.7)
--- NOTE | 2022-08-19 10:17 | PC.PHAR ---
pt states she takes care of her own medications-pt states she takes cytomel 25mcg daily states she had a build up of this medication-ext doesnt show when filled last called [facility] states never filled that medication for the pt-pt states her paxil 40mg daily filled 05/23/22 90d/s was dced-pt states she just started taking trintellix 10mg on 08/17/22 notes are made in the pharmacy comments
--- NOTE | 2022-08-19 11:24 | ECG_ITS ---
[facility] Test Date: 2022-08-19 Pat Name: Janette Nguyen Department: Room: Gender: Female Eeler: : 1970 Requested By: Alexandre Clarke Order Number: [id number] Tonya MD: Sang Jennings M.D. Measurements Intervals [place] Rate: 80 P: -10 MO: 200 QRS: 15 QRSD: 101 T: -9 QT: 354 QTc: 409 Interpretive Statements SINUS RHYTHM Compared to ECG 08/19/2022 09:32:54 No significant changes Electronically Signed On 08-19-2022 15:58:56 CDT by Sang Jennings M.D. [id number]
[2022-08-19 11:54] LABS: Troponin 5 2HR 9.17 ng/L (0-10)
[2022-08-19 12:12] LABS: Troponin 5 2HR Delta -0.83 ABS# (0-10)
== END 2022-08-19 12:23 | disposition home or self-care (01) ==
PROVIDERS: Emergency Provider Family Medicine; PCP Family Medicine
DX: R07.89 Other chest pain (principal); K21.9 Gastro-esophageal reflux disease without esophagitis
CPT/HCPCS: 36415; 71045; 80053; 84484; 85025; 93005; 99285

== ENCOUNTER 2022-09-08 07:29 | Emergency (ER) | payer BC, OTHER, SELFPAY ==
--- NOTE | 2022-09-08 07:40 | W.ED.CHESTPA ---
HPI - Chest Pain General: Chief Complaint: Chest Pain Stated Complaint: chest pain/headache/weakness Time Seen by Provider: 09/08/22 07:39 History of Present Illness: Ms. Nguyen is a 52-year-old lady with complex past medical history presenting to the emergency department for generalized illness. She notes onset of symptoms 2 to 3 weeks ago and gradual. She has had headaches in the posterior head, chest pain, palpitations, wheezing, shortness of breath, excessive thirst. Overall course of symptoms has waxed and waned mildly though has been worsening. Intensity is moderate. She notes nausea but no vomiting. She has chronic constipation which is unchanged. No other specific changes in health, exacerbating, or alleviating factors identified. Onset (ago): week(s) Timing of current episode: increasing Pain location: substernal Severity: moderate Quality: aching and heaviness Associated symptoms: Reports dyspnea and other Review of Systems General: Reports: 10 or more systems reviewed and unremarkable except in HPI and below Resp: Reports: dyspnea PFSH ED PFSH: Medical History Adrenal insufficiency Cervical disc disease Cervical radiculopathy Chronic cystitis Degenerative lumbar disc Polymyositis PVCs (premature ventricular contractions) Stopped taking metoprolol due to weight gain Recurrent UTI Surgical History H/O brain surgery H/O esophagogastroduodenoscopy H/O: hysterectomy History of colonoscopy (08/19/20) History of open reduction and internal fixation (ORIF) procedure right ankle bimalleolar fx Hx of bilateral breast reduction surgery Hx of neck surgery 06/2013 C4 C5 C6 [facility] [place] [facility] Chris Ad[facility] Home 12/29/19 C5 C6 C7 Status post laparoscopic cholecystectomy Family History Son Cancer BLADDER CANCER Mother Cancer COLON CANCER Diabetes Father Diabetes Social History Smoking and tobacco status: never smoked Alcohol intake: never Substance/Drug Use: never Adopted: No Caregiver/support person: No Lives independently: No Household members: spouse Marital status: Current occupational status: disabled Physical Exam Const: COMMON NORMALS: alert GENERAL APPEARANCE: cooperative and well developed HENMT: COMMON NORMALS: normocephalic and atraumatic HEAD & SCALP: normocephalic and atraumatic Eye: COMMON NORMALS: conjunctivae normal CONJUNCTIVA: Yes conjunctivae normal SCLERA: sclerae normal Neck/C-Spine: COMMON NORMALS: supple GENERAL: Yes trachea midline Resp: COMMON NORMALS: clear to auscultation bilaterally EFFORT & INSPECTION: Yes able to speak in complete sentences AUSCULTATION: clear to auscultation bilaterally Cardio: COMMON NORMALS: regular rate and regular rhythm RATE: regular rate RHYTHM: regular rhythm GI: COMMON NORMALS: Soft to palpation PALPATION: Yes Soft to palpation and No Tenderness to palpation present (GI) Extremity: GENERAL: Yes normal exam except as noted and No edema Neuro: COMMON NORMALS: moves all extremities SENSORIUM/ORIENTATION: Yes alert and No Orientation impaired Psych: COMMON NORMALS: mental status grossly normal and Normal thought process present THOUGHT PROCESS: Normal thought process present Course Vital Signs: Vital signs: Vital Signs Temperature 98.6 F 09/08/22 07:46 Pulse Rate 63 09/08/22 11:11 Respiratory Rate 16 09/08/22 07:46 Blood Pressure 143/98 09/08/22 11:11 Pulse Oximetry 98 09/08/22 11:11 Oxygen Delivery Me thod Nasal Cannula 09/08/22 09:10 Oxygen Flow Rate 5 09/08/22 09:10 MDM - Chest Pain Medical Decision Making 52-year-old lady presenting with generalized illness. Exam as above. Nontoxic. No meningismus or focal neurologic deficits. EKG demonstrates sinus rhythm with normal axis and intervals, no STEMI. Essentially unremarkable hematologic panel. Metabolic panel with some evidence of dehydration. Negative range 2-hour delta troponin. No UTI. Viral panel negative. Chest x-ray with no lobar consolidations or pneumothorax. Patient feels markedly improved with migraine cocktail as well as treatment in ED with aspirin. She has had resolution of headache. The results of ED evaluation were discussed with the patient including possible disposition options. I discussed risk stratification by heart score and estimated risk of major adverse cardiac events. The patient wishes to proceed with outpatient management. I discussed prescriptions and/or symptomatic cares (if applicable) including appropriate and responsible use, followup plan, and return precautions. The patient verbalized understanding and felt safe for discharge. Medical Records I reviewed the patient's medical records. Lab Data I reviewed the patient's lab results. 09/08/22 08:07 09/08/22 08:07 Radiology Impressions Chest X-Ray 09/08/22 07:55 IMPRESSION: 1. Negative chest. Laboratory Results WBC 6.8 10^3/uL (4.0-10.0) 09/08/22 08:07 RBC 4.95 10^6/uL (4.1-5.3) 09/08/22 08:07 Hgb 13.6 g/dL (11.5-15.3) 09/08/22 08:07 Hct 42.3 % (37.0-47.0) 09/08/22 08:07 MCV 85.5 fl (81-99) 09/08/22 08:07 MCH 27.5 pg (28.0-34.0) L 09/08/22 08:07 MCHC 32.2 g/dL (30.0-36.0) 09/08/22 08:07 RDW 13.3 % (12.1-15.1) 09/08/22 08:07 Plt Count 270 10^3/cmm (130-400) 09/08/22 08:07 MPV 9.7 fL (7.4-10.4) 09/08/22 08:07 Neut % (Auto) 55.7 % 09/08/22 08:07 Lymph % (Auto) 34.5 % 09/08/22 08:07 [place] % (Auto) 6.6 % 09/08/22 08:07 Eos % (Auto) 2.1 % 09/08/22 08:07 Baso % (Auto) 0.7 % 09/08/22 08:07 Neut # (Auto) 3.78 10^3/uL (1.8-7.7) 09/08/22 08:07 Lymph # (Auto) 2.3 10^3/uL (0.8-4.8) 09/08/22 08:07 [place] # (Auto) 0.5 10^3/uL (0.2-0.9) 09/08/22 08:07 Eos # (Auto) 0.1 10^3/uL (0.0-0.8) 09/08/22 08:07 Baso # (Auto) 0.1 10^3/uL (0.0-0.1) 09/08/22 08:07 Nucleated RBC % (auto) 0 % 09/08/22 08:07 Nucleated RBCs # 0.0 /100WBC 09/08/22 08:07 Sodium 136 mmol/L (136-145) 09/08/22 08:07 Potassium 3.9 mmol/L (3.5-5.1) 09/08/22 08:07 Chloride 97 mmol/L (98-107) L 09/08/22 08:07 Carbon Dioxide 27 mmol/L (22-29) 09/08/22 08:07 Anion Gap 15.9 (5-19) 09/08/22 08:07 BUN 13 mg/dL (6-20) 09/08/22 08:07 Creatinine 1.3 mg/dL (0.5-0.9) H 09/08/22 08:07 GFR Calculation 43.0 mL/min (90-130) L 09/08/22 08:07 Glucose 122 mg/dL (65-115) H 09/08/22 08:07 Calculated Osmolality 283 mOsm/kg (285-295) L 09/08/22 08:07 Calcium 9.7 mg/dL (8.5-10.5) 09/08/22 08:07 Total Bilirubin 0.3 mg/dL (0.15-1.2) 09/08/22 08:07 AST 21 U/L (0-32) 09/08/22 08:07 ALT 22 U/L (0-33) 09/08/22 08:07 Alkaline Phosphatase 75 U/L (35-105) 09/08/22 08:07 Troponin T Baseline 14 ng/L (0-10) H 09/08/22 08:07 Troponin T 120 Minute 15.17 ng/L (0-10) H 09/08/22 10:06 Delta Troponin T 1.17 ABS# (0-10) 09/08/22 10:06 NT-Pro-B Natriuret Pep 36 pg/mL (0-125) 09/08/22 08:07 Total Protein 7.5 g/dL (6.6-8.7) 09/08/22 08:07 Albumin 5.0 g/dL (3.5-5.2) 09/08/22 08:07 Globulin 2.5 g/dL (1.3-4.6) 09/08/22 08:07 Lipase 29 U/L (13-60) 09/08/22 08:07 Urine Color Straw (Yellow) 09/08/22 08:07 Urine Appearance Clear (CLEAR) 09/08/22 08:07 Urine pH 5 (5-7) 09/08/22 08:07 Ur Specific [place] 1.010 (1.005-1.030) 09/08/22 08:07 Urine Protein Neg (Negative) 09/08/22 08:07 Urine Glucose (UA) Norm (Normal) 09/08/22 08:07 Urine Ketones Negative (Negative) 09/08/22 08:07 Urine Blood Neg (Negative) 09/08/22 08:07 Urine Nitrate Negative (Negative) 09/08/22 08:07 Urine Bilirubin Neg (Negative) 09/08/22 08:07 Urine Urobilinogen Norm mg/dL (Negative) 09/08/22 08:07 Ur Leukocyte Esterase Negative (Negative) 09/08/22 08:07 Nasal Influ A H1 2009 PCR Not detected (NOT DETECT) 09/08/22 08:07 Adenovirus (PCR) Not detected (NOT DETECT) 09/08/22 08:07 C. pneumoniae DNA (PCR) Not detected (NOT DETECT) 09/08/22 08:07 Coronavirus 229E (PCR) Not detected (NOT DETECT) 09/08/22 08:07 Human Metapneumovir PCR Not detected (NOT DETECT) 09/08/22 08:07 Influenza A (H1) PCR Not detected (NOT DETECT) 09/08/22 08:07 Influenza A (H3) PCR Not detected (NOT DETECT) 09/08/22 08:07 Influenza Type A (PCR) Not detected (NOT DETECT) 09/08/22 08:07 Influenza Type B (PCR) Not detected (NOT DETECT) 09/08/22 08:07 M. pneumoniae (PCR) Not detected (NOT DETECT) 09/08/22 08:07 Parainfluenza 1 (PCR) Not detected (NOT DETECT) 09/08/22 08:07 Parainfluenza 2 (PCR) Not detected (NOT DETECT) 09/08/22 08:07 Parainfluenza 3 (PCR) Not detected (NOT DETECT) 09/08/22 08:07 Parainfluenza 4 (PCR) Not detected (NOT DETECT) 09/08/22 08:07 RSV Type A (PCR) Not detected (NOT DETECT) 09/08/22 08:07 RSV Type B (PCR) Not detected (NOT DETECT) 09/08/22 08:07 Entero/Rhino (PCR) Not detected (NOT DETECT) 09/08/22 08:07 SARS-CoV-2 (PCR) Not detected (NOT DETECT) 09/08/22 08:07 Discharge Plan Discharge Patient Disposition: Home Clinical Impression: Atypical chest pain, Headache, Dehydration, mild Condition: Stable Prescriptions: No Action (DME) Sole Supports See Rx Instructions .Route .MEDSUPPLY Qty: 1 0RF Rx Instructions: As directed lactulose 10 gram/15 mL solution 10 g PO BID PRN (Reason: Constipation) (DME) Wheel Chair See Rx Instructions .Route .MEDSUPPLY Qty: 1 0RF Rx Instructions: As directed by HOME lisinopril 10 mg tablet 10 mg PO BEDTIME Hold Instructions: Resume on 07/28/20. mupirocin [Centany] 2 % ointment 1 applic TOPICAL TID PRN (Reason: Rash) albuterol sulfate [ProAir HFA] 90 mcg/actuation Hfa Aerosol Inhaler 1 puff INHALATION Q4H PRN (Reason: Shortness Of Breath) fluticasone propionate 50 mcg/actuation [place],Suspension 2 spray INTRANASAL BEDTIME nortriptyline 50 mg capsule 150 mg PO BEDTIME rosuvastatin 5 mg tablet 5 mg PO QPM cholecalciferol (vitamin D3) 1,250 mcg (50,000 unit) capsule 50,000 unit PO Q7D Rx Instructions: on sunday loratadine [Claritin] 10 mg tablet 10 mg PO DAILY PRN (Reason: Allergy Symptoms) gabapentin 600 mg tablet 600 mg PO BEDTIME glimepiride [Amaryl] 2 mg tablet 2 mg PO BEDTIME acetaminophen [Tylenol Arthritis Pain] 650 mg Tablet Extended Release 1,300 mg PO Q6H PRN (Reason: Pain) potassium chloride 20 mEq tablet,ER particles/crystals 20 meq PO DAILY PRN (Reason: unknown) lidocaine 5 % adhesive patch,medicated See Rx Instructions .ROUTE .COMPLEX Rx Instructions: apply 2 patches topically on for 12 hours, off for 12 hours prn zolpidem 10 mg tablet 10 mg PO BEDTIME PRN (Reason: Sleep) baclofen 10 mg tablet 10 mg PO BEDTIME PRN (Reason: Muscle Spasm) levothyroxine 137 mcg Tablet 137 mcg PO BEDTIME hydroxyzine HCl 25 mg tablet 25 mg PO TID PRN (Reason: Anxiety) buprenorphine-naloxone 8-2 mg film 1 film buccal QAM Trintellix 10 mg tablet 10 mg PO QAM sulfamethoxazole-trimethoprim 800-160 mg tablet 2 tab PO BEDTIME omeprazole 40 mg capsule,delayed release(DR/EC) 40 mg PO BEDTIME ipratropium bromide 21 mcg (0.03 %) spray,non-aerosol 2 spray INTRANASAL TID liothyronine [Cytomel] 25 mcg Tablet 25 mcg PO DAILY Discharge Orders: Discharge ED (Routine); Ordered 09/08/22 Ordered By: Jan Costa Referrals: Maliha Tijerina MD [Primary Care Provider] - Discharge Diet: Usual diet Discharge Activity: Increase activity as tolerated Patient Instructions: Chest Pain (ED), Dehydration (ED), Acute Headache (ED) Activity Restrictions/Additional Instructions: Thank you for visiting the emergency department. You were seen and evaluated for chest pain, headache, generalized illness. The exact cause your symptoms is unclear. As discussed you do require further testing which we will order for the outpatient setting. Please ensure that you are staying hydrated. You may use [id number] medications such as acetaminophen and ibuprofen for pain however please do not exceed the daily recommended dosage as listed on the packaging and please keep in mind that many namebrand medications contain the same active ingredients. Please avoid these medications if previously instructed to do so by another physician due to other underlying medical condition. Follow-up with your primary care provider. Return for worsening symptoms or anything else that you are concerned about and feel needs emergency department evaluation. Coding Level of Care Code ED Home Paraprofessional for Miracle Pugh
[2022-09-08 07:46] VITALS: BP 154/107; PULSE 74; RESP 16; TEMP 37; O2SAT 97
--- NOTE | 2022-09-08 07:55 | XR_ITS ---
WS: [id number] Exam: XR chest 1V portable [id number] Date/Time of Exam: 09/08/2022 7:59 AM Reason For Exam: cp, wheezing Comparison 08/19/2022. The lungs are clear and fully expanded. Normal cardiomediastinal silhouette and regional bony element s. No pleural effusions. Partially visualized fusion hardware in the lower C-spine. XR/XR chest 1V portable [id number] IMPRESSION: 1. Negative chest.
--- NOTE | 2022-09-08 07:55 | ECG_ITS ---
[facility] Test Date: 2022-09-08 Pat Name: Janette Nguyen Department: Room: Gender: Female Lead Electrician: : 1970 Requested By: Jan Costa Order Number: [id number] Tonya MD: Gregorio Montano M.D. Measurements Intervals [place] Rate: 75 P: 67 ND: 183 QRS: 67 QRSD: 86 T: 77 QT: 378 QTc: 424 Interpretive Statements SINUS RHYTHM LOW QRS VOLTAGE IN PRECORDIAL LEADS [QRS DEFLECTION < 1.0 mV IN CHEST LEADS] Compared to ECG 08/19/2022 11:38:53 Low QRS voltage now present Electronically Signed On 09-08-2022 11:42:08 CDT by Gregorio Montano M.D. [id number]
[2022-09-08] MEDS: aspirin 81 mg Chew Tablet 324 MG PO (08:11)
[2022-09-08] MEDS: sodium chloride 0.9% 1,000 ML 999 ML IV (08:12)
[2022-09-08] MEDS: metoclopramide 5 mg/mL SDV 2 mL 10 MG IVP (08:12)
[2022-09-08] MEDS: diphenhydrAMINE 50 mg/mL SDV 1mL 25 MG IVP (08:12)
[2022-09-08] MEDS: ketorolac 30 mg/mL INJ 15 MG IVP (08:12)
[2022-09-08 08:22] LABS: Add Urine Microscopic? NO; Basophils # 0.1 10^3/uL (0.0-0.1); Basophils % 0.7 %; Charge for UA Resulting for Rev; Eosinophils # 0.1 10^3/uL (0.0-0.8); Eosinophils % 2.1 %; Hematocrit 42.3 % (37.0-47.0); Hemoglobin 13.6 g/dL (11.5-15.3); Lymphocytes # 2.3 10^3/uL (0.8-4.8); Lymphocytes % 34.5 %; Mean Corpuscular HGB Conc 32.2 g/dL (30.0-36.0); Mean Corpuscular Hemoglobin 27.5 pg (28.0-34.0); Mean Corpuscular Volume 85.5 fl (81-99); Mean Platelet Volume 9.7 fL (7.4-10.4); Monocytes # 0.5 10^3/uL (0.2-0.9); Monocytes % 6.6 %; Neutrophils # 3.78 10^3/uL (1.8-7.7); Neutrophils % 55.7 %; Nucleated Red Blood Cells % 0 %; Platelet Count 270 10^3/cmm (130-400); Red Blood Count 4.95 10^6/uL (4.1-5.3); Red Cell Distribution Width 13.3 % (12.1-15.1); White Blood Count 6.8 10^3/uL (4.0-10.0)
[2022-09-08 08:23] VITALS: BP 131/90; PULSE 76; O2SAT 76
[2022-09-08 08:38] LABS: Bilirubin Urine Neg (Negative); Blood Urine Neg (Negative); Glucose Urine UA Norm (Normal); Ketones Urine Negative (Negative); Leukocyte Esterase Urine Negative (Negative); Nitrate Urine Negative (Negative); Protein Urine Neg (Negative); Urine Appearance Clear (CLEAR); Urine Color Straw (Yellow); Urobilinogen Urine Norm (Negative); pH Urine 5 (5-7)
[2022-09-08 08:46] LABS: Troponin(5th) Baseline 14 ng/L (0-10)
[2022-09-08 08:49] LABS: Alanine Aminotransferase 22 U/L (0-33); Alkaline Phosphatase 75 U/L (35-105); Anion Gap 15.9 (5-19); Aspartate Amino Transferase 21 U/L (0-32); Blood Urea Nitrogen 13 mg/dL (6-20); Calcium 9.7 mg/dL (8.5-10.5); Carbon Dioxide 27 mmol/L (22-29); Chloride 97 mmol/L (98-107); Globulin 2.5 g/dL (1.3-4.6); Glucose 122 mg/dL (65-115); Lipase 29 U/L (13-60); NT Pro B Type Natriuretic Pept 36 pg/mL (0-125); Osmolality Calculated 283 mOsm/kg (285-295); Potassium 3.9 mmol/L (3.5-5.1); Sodium 136 mmol/L (136-145); Total Bilirubin 0.3 mg/dL (0.15-1.2); Total Protein 7.5 g/dL (6.6-8.7)
[2022-09-08 09:10] VITALS: BP 151/88; PULSE 68; O2SAT 100
--- NOTE | 2022-09-08 09:55 | ECG_ITS ---
[facility] Test Date: 2022-09-08 Pat Name: Janette Nguyen Department: Room: Gender: Female Cook Vegetable: : 1970 Requested By: Jan Costa Order Number: [id number] Tonya MD: Gregorio Montano M.D. Measurements Intervals [place] Rate: 63 P: 61 GA: 186 QRS: 65 QRSD: 85 T: 83 QT: 403 QTc: 414 Interpretive Statements SINUS RHYTHM LOW QRS VOLTAGE IN PRECORDIAL LEADS [QRS DEFLECTION < 1.0 mV IN CHEST LEADS] Compared to ECG 09/08/2022 07:44:46 No significant changes Electronically Signed On 09-08-2022 11:45:12 CDT by Gregorio Montano M.D. [email or web address] (Smart [employer] toolKit)/store/[id number]
[2022-09-08 10:07] VITALS: BP 135/94; PULSE 68; O2SAT 96
[2022-09-08 10:08] LABS: Adenovirus Not Detected (NOT DETECT); Coronavirus 229E,HKU1,NL63,OC4 Not Detected (NOT DETECT); Human Metapneumovirus Not Detected (NOT DETECT); Human Rhinovirus/Enterovirus Not Detected (NOT DETECT); Influenza A Not Detected (NOT DETECT); Influenza A H1 Not Detected (NOT DETECT); Influenza A H1-2009 Not Detected (NOT DETECT); Influenza A H3 Not Detected (NOT DETECT); Influenza B Not Detected (NOT DETECT); Parainfluenza Virus Type 1 Not Detected (NOT DETECT); SARS-COV-2 Not Detected (NOT DETECT)
[2022-09-08 10:09] LABS: Chlamydia Pneumoniae Not Detected (NOT DETECT); Mycoplasma Pneumoniae Not Detected (NOT DETECT); Parainfluenza Virus Type 2 Not Detected (NOT DETECT); Parainfluenza Virus Type 3 Not Detected (NOT DETECT); Parainfluenza Virus Type 4 Not Detected (NOT DETECT); Respiratory Syncytial Virus A Not Detected (NOT DETECT); Respiratory Syncytial Virus B Not Detected (NOT DETECT)
[2022-09-08 10:41] LABS: Troponin 5 2HR 15.17 ng/L (0-10)
[2022-09-08 10:46] LABS: Troponin 5 2HR Delta 1.17 ABS# (0-10)
[2022-09-08 11:11] VITALS: BP 143/98; PULSE 63; O2SAT 98
--- NOTE | 2022-09-08 14:10 | DCPLANNER ---
Addendum entered by Julia Moore 10/20/22 11:11: Patient did attend stress test Addendum entered by Julia Moore 10/05/22 11:54: Patient has an outpatient stress test scheduled for Thursday, October 13, 2022 at 6:45. Addendum entered by Julia Moore 09/27/22 11:16: Patient had an out patient echo scheduled for 09.25.22 - patient did attend appointment. Original Note: creative manager had message to schedule an outpatient stress test and echocardiogram for patient. creative manager faxed signed order to centralized scheduling, who will call patient with appointment information.
== END 2022-09-08 11:12 | disposition home or self-care (01) ==
PROVIDERS: Emergency Provider Emergency Medicine; PCP Family Medicine
DX: R07.89 Other chest pain (principal); R51.9 Headache, unspecified; E86.0 Dehydration
CPT/HCPCS: 36415; 71045; 80053; 81003; 83690; 83880; 84484; 85025; 87486; 87581; 87633; 93005; 96361; 96374; 96375; 99285; J1200; J1885; J2765; J7030

== ENCOUNTER 2022-09-25 08:10 | Outpatient (CLI) | payer BC, OTHER, SELFPAY ==
--- NOTE | 2022-09-25 08:16 | USCV_ITS ---
Janette Nguyen Age: 52 Gender: F : 1970 Exam Date: 09/25/2022 08:44 Ordering Phys: Jan Costa MD Technologist: Harjit Vazquez [place] [facility] [place]ication: chest pain BP: 143 / 98 HR: 91 Rhythm: Sinus Technical Quality: Adequate MEASUREMENTS (Male / Female) Normal Values 2D ECHO LVOT Diameter 2.0 cm LV Ejection Fraction MOD 2C 61.0 % LV Ejection Fraction 2C AL 60.8 % LA Diameter 3.0 cm LA Width 3.3 cm LA Height 3.6 cm RA Width 2.9 cm RA Height 4.2 cm Aorta at Sinotubular Diameter 2.8 cm IVC Diameter 1.7 cm M-MODE Aortic Annulus Diameter 2.9 cm LA Ao Ratio MM 1.0 MV E Point Septal Separation 0.4 cm DOPPLER AV Peak Velocity 139.7 cm/s LVOT Peak Velocity 123.0 cm/s AV Area Cont Eq vti 2.8 cm squared AV Area Cont Eq pk 2.8 cm squared MV Peak Velocity 107.0 cm/s MV Area PHT 5.0 cm squared Mitral E to A Ratio 0.8 MV E' Velocity 43.0 cm/s Mitral E to MV E' Ratio 8.3 Mitral E to LV E' Lateral Ratio 7.8 Mitral E to LV E' Septal Ratio 8.8 TR Peak Velocity 236.0 cm/s TR Peak Gradient 22.3 mmHg TR Mean Velocity 194.2 cm/s TR Mean Gradient 15.6 mmHg TR Velocity Time Integral 58.2 cm Right Atrial Pressure 3.0 mmHg Pulmonary Artery Systolic Pressu 25.3 mmHg PV Peak Velocity 137.0 cm/s RV Acceleration Time 0.1 s RV Ejection Time 0.2 s RV AcT/ET 0.5 FINDINGS Left Ventricle Left ventricle is normal in size. LV systolic function is normal with EF of 60-65%. No regional wall motion abnormalities are seen. Grade 1 diastolic dysfunction Right Ventricle Normal in size and function Right Atrium Normal in size Left Atrium Normal in size Mitral Valve Structurally normal mitral valve. Mild mitral regurgitation Aortic Valve Structurally normal aortic valve. No significant stenosis or regurgitation Tricuspid Valve Mild tricuspid regurgitation. Pulmonary artery systolic pressure is normal Pulmonic Valve Not well visualized. Trace pulmonic regurgitation. Pericardium Normal Aorta Normal in size IVC Appears to be normal CONCLUSIONS LV systolic function is normal with EF of 60 to 65%. Grade 1 diastolic dysfunction. Mild mitral regurgitation Mild tricuspid regurgitation Trace pulmonic regurgitation Compared to prior echocardiogram from 2020, no significant changes are seen Marco Champagne MD (Electronically Signed) Final Date: 25 September 2022 14:43 S
== END 2022-09-25 08:11 | disposition home or self-care (01) ==
PROVIDERS: PCP Family Medicine; Visit Provider Emergency Medicine
DX: I08.1 Rheumatic disorders of both mitral and tricuspid valves (principal); R07.9 Chest pain, unspecified
CPT/HCPCS: 93306

== ENCOUNTER 2022-10-13 06:30 | Outpatient (CLI) | payer BC, OTHER, SELFPAY ==
--- NOTE | 2022-10-13 06:50 | ECG_ITS ---
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 Interpretive Statements NAME OF STUDY: LEXISCAN SESTAMIBI STRESS TEST INDICATION: Chest Pain PROCEDURE: At the baseline, the blood pressure was 116/73 mm Hg with a heart rate of 69 bpm. The electrocardiogram showed sinus rhythm, normal axis with non specific T wave inversion. ??? The Lexiscan was infused over a period of 20 seconds. A total of 0.4 milligrams of Lexiscan was infused. The stress phase was continued for a total of 5 minutes. Heart rate at the end of the stress phase was 80 bpm with a blood pressure of 113/61 mm Hg. The EKG at the peak infusion revealed no significant ST-T wave changes. ??? Sestamibi was injected 20 seconds after the Lexiscan infusion. ??? Blood pressure at the end of the recovery phase was 112/66 mm Hg with a heart rate of 82 beats per minute. ??? CONCLUSION: 1. Normal EKG response to LexiScan infusion. 2. No LexiScan induced chest pain or cardiac arrhythmia. 3. Normal blood pressure and heart rate response. 4. Sestamibi/sestamibi perfusion scan pending; see separate report. Electronically Signed On 10-27-2022 8:34:46 CDT by Debby Shannon M.D. [id number]
--- NOTE | 2022-10-13 06:50 | NMCV_ITS ---
NM mario perf SPECT r/s* [id number] Janette Nguyen Age: 52 Gender: F : 1970 Exam Date: 10/13/2022 07:36 Ordering Phys: Jan Costa MD Technologist: DIANA Nicolas Exam Location: [facility] Indications: CHEST PAIN STRESS TEST Please see separate stress test report in Ephiphany for full findings IMAGE PROTOCOL Rest/Stress 1 Lexiscan Day Radiopharmaceutical Dose (mCi) Administration Site Administered by Rest: Tc-99m 10.9 IV Rios Herrmann, COATING LINE WORKER Sestamibi Stress:Tc-99m 32.9 IV Rios Herrmann, COATING LINE WORKER Sestamibi Rest: 13-Oct-2022 60 Discovery 630 Stress: 13-Oct-2022 30 Discovery 630 0.4mg Lexiscan. Images obtained in supine and prone position. SPECT RESULTS Technical Quality: Excellent Raw Data Analysis: Normal Image Corrections: No attenuation or motion correction applied Summed Stress Score: 0 Summed Rest Score: 2 Summed Difference Score: 0 PERFUSION FINDINGS Fairly uniform myocardial tracer uptake. No significant perfusion abnormalities. FUNCTIONAL RESULTS (calculated via Gated SPECT) Stress Image LV EF (%): 92 Stress EDV (mL):76 TID: 0.88 Stress ESV (mL):6 FUNCTIONAL FINDINGS: Segmental wall motion analysis revealing no gross wall motion abnormalities IMPRESSIONS 1. Myocardial perfusion imaging revealing fairly uniform myocardial tracer uptake. 2. Normal LV ejection fraction of 92%. 3. LV wall motion analysis revealing no gross wall motion abnormalities. 4. Normal LV volume Low probability for coronary ischemia, based on the above findings Dr Sang Jennings MD FAC (Electronically Signed) Final Date: 13 October 2022 15:52 S
[2022-10-13 07:02] VITALS: BMI 29.2
[2022-10-13] MEDS: regadenoson 0.4 Mg/5 ml Syringe IVP (08:26)
[2022-10-13 08:46] VITALS: BP 113/61; PULSE 78
== END 2022-10-13 06:31 | disposition home or self-care (01) ==
LOC: CDL 06:32
PROVIDERS: PCP Family Medicine; Visit Provider Emergency Medicine
DX: R07.9 Chest pain, unspecified (principal)
CPT/HCPCS: 36415; 78452; 93017; 96374; A9500; J2785

== ENCOUNTER 2022-11-03 13:43 | Outpatient (CLI) | payer BC, OTHER, SELFPAY ==
[2022-11-03 14:31] LABS: Creatine Phosphokinase 172 U/L (26-192)
== END 2022-11-03 13:44 | disposition home or self-care (01) ==
PROVIDERS: PCP Family Medicine; Visit Provider Psychiatry & Neurology Neurology
DX: G72.9 Myopathy, unspecified (principal); Z79.899 Other long term (current) drug therapy
CPT/HCPCS: 36415; 82550

== ENCOUNTER 2023-05-02 09:34 | Outpatient (CLI) | payer BC, OTHER, SELFPAY ==
--- NOTE | 2023-05-02 09:36 | USCV_ITS ---
Janette Nguyen Age: 52 Gender: F : 1970 Exam Date: 05/02/2023 09:47 Ordering Phys: Maliha Tijerina MD Technologist: Exam Location: [facility] [place] Indication: RIGHT LEFT Brachial 151.00 mmHg Brachial 148.00 mmHg Pressure (mmHg) Waveform Pressure (mmHg) Waveform 1.20 Ankle/Brachial Index 1.30 FINDINGS Resting NELSON 1.2 on the right and 1.3 on the left Resting TBI 1.3 on the right and 1.37 on the left Normal PVR waveforms CONCLUSIONS Normal resting ABIs, TBIs and PVR waveforms bilaterally, suggesting no significant arterial obstruction Dr Sang Jennings MD [facility] (Electronically Signed) Final Date: 03 May 2023 21:36 S
== END 2023-05-02 09:35 | disposition home or self-care (01) ==
LOC: RAD 09:34
PROVIDERS: PCP Family Medicine; Visit Provider Family Medicine
DX: R23.0 Cyanosis (principal)
CPT/HCPCS: 93923

== ENCOUNTER 2023-07-15 10:42 | Emergency (ER) | payer OTHER, SELFPAY ==
[2023-07-15 10:45] VITALS: BP 149/96; PULSE 102; RESP 18; TEMP 36.8; O2SAT 95
--- NOTE | 2023-07-15 10:50 | ECG_ITS ---
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 Measurements Intervals [place] Rate: 98 P: 74 AK: 148 QRS: 72 QRSD: 82 T: 72 QT: 305 QTc: 389 Interpretive Statements SINUS RHYTHM NONSPECIFIC T-WAVE ABNORMALITY INTERPRETATION BASED ON A DEFAULT AGE OF 40 YEARS Compared to ECG 09/08/2022 09:57:25 T-wave abnormality now present Electronically Signed On 07-16-2023 8:33:15 CDT by Sang Jennings M.D. [id number]
--- NOTE | 2023-07-15 10:53 | XRR_ITS ---
PROCEDURE INFORMATION: Exam: XR Chest Exam date and time: 07/15/2023 11:02 AM Age: 52 years old Clinical indication: Shortness of breath; Additional info: SOB TECHNIQUE: Imaging protocol: Radiologic exam of the chest. Views: 1 view. COMPARISON: CR XR chest 1V portable [id number] 09/08/2022 8:19 AM FINDINGS: Lungs: Unremarkable. No consolidation. Pleural spaces: Unremarkable. No pleural effusion. No pneumothorax. Heart/Mediastinum: Unremarkable. No cardiomegaly. Bones/joints: Unremarkable. XR/XR chest 1V portable [id number] IMPRESSION: No acute findings.
--- NOTE | 2023-07-15 10:56 | ED_ITS ---
HPI - SOB/Dyspnea 2 General: Chief Complaint: Shortness of Breath/Dyspnea Stated Complaint: SOB Time Seen by Provider: 07/15/23 10:46 Source: patient Mode of arrival: ambulatory Limitations: no limitations History of Present Illness: HPI Narrative: 52-year-old female states she has been h aving sharp chest pains along with shortness of breath over the last 2 days. States she had some wheezing along with like she cannot get a deep breath and her oxygen sat here is normal she has no history of any heart or lung issues. Denies cough denies fever she did have a recent vacation to [place]. Associated symptoms: Reports chest pain; Deny abdominal pain, fever(s), nausea or vomiting Review of Systems 2 Const: Denies: fever(s), chills, body aches or change in appetite ENMT: Denies: throat pain or dental pain Card: Reports: chest pain Resp: Reports: dyspnea GI: Denies: abdominal pain, nausea, vomiting or diarrhea Musc: Denies: neck pain or back pain Skin/Breast: Denies: rash Neuro: Denies: headache(s) PFSH ED 2 PFSH: Medical History Chronic cystitis Adrenal insufficiency PVCs (premature ventricular contractions) Stopped taking metoprolol due to weight gain Cervical disc disease Cervical radiculopathy Polymyositis Degenerative lumbar disc Recurrent UTI Surgical History H/O esophagogastroduodenoscopy History of open reduction and internal fixation (ORIF) procedure right ankle bimalleolar fx Status post laparoscopic cholecystectomy H/O: hysterectomy H/O brain surgery History of colonoscopy (08/19/20) Hx of neck surgery 06/2013 C4 C5 C6 [facility] Dr. Chris Adair [facility] Home 12/29/19 C5 C6 C7 Hx of bilateral breast reduction surgery Family History Son Cancer BLADDER CANCER Mother Cancer COLON CANCER Diabetes Father Diabetes Social History Smoking and tobacco/nicotine status: never used tobacco/nicotine Alcohol intake: never Substance/Drug Use: never Adopted: No Caregiver/support person: No Lives independently: No Household members: spouse Marital status: Current occupational status: disabled Physical Exam 2 Const: COMMON NORMALS: no acute distress, patient oriented x3 and healthy appearing HENMT: COMMON NORMALS: normocephalic and atraumatic HEAD & SCALP: n ormocephalic and atraumatic Neck/C-Spine: COMMON NORMALS: full ROM and supple Chest: COMMONS NORMALS: normal inspection of the chest and normal palpation of entire chest wall Resp: COMMON NORMALS: normal respiratory effort, No retractions and No use of accessory muscles AUSCULTATION: wheezes Cardio: COMMON NORMALS: regular rate, regular rhythm and No murmurs present (Cardio) RATE: regular rate RHYTHM: regular rhythm Extremity: COMMON NORMALS: normal to inspection and full ROM Neuro: COMMON NORMALS: patient oriented x3, moves all extremities and no focal motor deficits Psych: COMMON NORMALS: mental status grossly normal, Normal thought process present and cooperative THOUGHT PROCESS: Normal thought process present Skin: COMMON NORMALS: no rashes or lesions noted and no wounds GENERAL SKIN EXAM: no rashes or lesions noted Course 2 Vital Signs: Vital signs: Vital Signs Temperature 98.2 F 07/15/23 10:45 Pulse Rate 89 07/15/23 12:00 Respiratory Rate 18 07/15/23 11:14 Blood Pressure 126/79 07/15/23 12:00 Pulse Oximetry 93 07/15/23 12:00 Oxygen Delivery Me thod Room Air 07/15/23 12:00 MDM - SOB/Dyspnea Medical Decision Making Patient presents here with shortness of breath CT showed some possible pneumonia along with tracheal stenosis patient knows of her tracheal stenosis she states she is actually being followed with for this post to see ENT in the next few weeks at [place]. Will place her on doxycycline did give her dose of Decadron she feels improved. Will prescribe albuterol as well she is return if worsening she understands agrees to plan her pulse ox here is been normal. Medical Records I reviewed the patient's medical records. Lab Data I reviewed the patient's lab results. 07/15/23 11:01 07/15/23 11:01 Labs/Radiology: Radiology Impressions Chest X-Ray 07/15/23 10:53 IMPRESSION: No acute findings. Chest CTA 07/15/23 11:25 IMPRESSION: 1. 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 Recommend pulmonology evaluation. 2. Scattered mild ground-glass opacities within the right upper greater than middle lobes may be infectious or inflammatory. Recommend CT Chest at 3-6 months. Laboratory Results WBC 9.87 10^3/uL (3.29-11.43) 07/15/23 11:01 RBC 5.14 10^6/uL (3.85-5.65) 07/15/23 11:01 Hgb 14.60 g/dL (11.27-16.99) 07/15/23 11:01 Hct 44.7 % (36-47) 07/15/23 11:01 MCV 87.0 fl (85-98) 07/15/23 11:01 MCH 28.4 pg (27-33) 07/15/23 11:01 MCHC 32.7 g/dL (30-55) 07/15/23 11:01 RDW 12.8 % (12.1-15.1) 07/15/23 11:01 Plt Count 364 10^3/cmm (157-399) 07/15/23 11:01 MPV 9.5 fL (7.4-10.4) 07/15/23 11:01 Neut % (Auto) 67.5 % 07/15/23 11:01 Lymph % (Auto) 26.6 % 07/15/23 11:01 [place] % (Auto) 4.3 % 07/15/23 11:01 Eos % (Auto) 0.8 % 07/15/23 11:01 Baso % (Auto) 0.5 % 07/15/23 11:01 Neut # (Auto) 6.66 10^3/uL (1.8-7.7) 07/15/23 11:01 Lymph # (Auto) 2.6 10^3/uL (0.8-4.8) 07/15/23 11:01 [place] # (Auto) 0.4 10^3/uL (0.2-0.9) 07/15/23 11:01 Eos # (Auto) 0.1 10^3/uL (0.0-0.8) 07/15/23 11:01 Baso # (Auto) 0.1 10^3/uL (0.0-0.1) 07/15/23 11:01 Nucleated RBC % (auto) 0 % 07/15/23 11:01 Nucleated RBCs # 0.0 /100WBC 07/15/23 11:01 PT 12.70 SECONDS (12.1-14.9) 07/15/23 11:01 INR 0.92 (0.8-1.2) 07/15/23 11:01 D-Dimer 3.63 ug/mLFEU (0-0.59) H 07/15/23 11:01 Sodium 132 mmol/L (136-145) L 07/15/23 11:01 Potassium 4.8 mmol/L (3.5-5.1) 07/15/23 11:01 Chloride 100 mmol/L (98-107) 07/15/23 11:01 Carbon Dioxide 19 mmol/L (22-29) L 07/15/23 11:01 Anion Gap 17.8 (5-19) 07/15/23 11:01 BUN 20 mg/dL (6-20) 07/15/23 11:01 Creatinine 1.2 mg/dL (0.5-0.9) H 07/15/23 11:01 GFR Calculation 47.2 mL/min (90-130) L 07/15/23 11:01 Glucose 117 mg/dL (65-115) H 07/15/23 11:01 Calculated Osmolality 278 mOsm/kg (285-295) L 07/15/23 11:01 Calcium 9.5 mg/dL (8.5-10.5) 07/15/23 11:01 Total Bilirubin 0.2 mg/dL (0.15-1.2) 07/15/23 11:01 AST 14 U/L (0-32) 07/15/23 11:01 ALT 13 U/L (0-33) 07/15/23 11:01 Alkaline Phosphatase 84 U/L (35-105) 07/15/23 11:01 Troponin T Baseline < 6 ng/L (0-10) 07/15/23 11:01 NT-Pro-B Natriuret Pep < 36 pg/mL (0-125) 07/15/23 11:01 Total Protein 7.4 g/dL (6.6-8.7) 07/15/23 11:01 Albumin 4.4 g/dL (3.5-5.2) 07/15/23 11:01 Globulin 3.0 g/dL (1.3-4.6) 07/15/23 11:01 No radiology studies performed this visit EKG Data EKG 1: I personally reviewed and interpreted this EKG as follows: EKG Interpretation Date: 07/15/23 EKG interpretation time: 10:50 Interpretation: nsr hr [address] or t wave abnormalities qrs 82 qtc 360 EKG 2: I personally reviewed and interpreted this EKG as follows: EKG Interpretation Date: 07/15/23 EKG interpretation time: 12:32 Interpretation: nsr hr [address] or t wave abnormalities qrs 94 qtc 378 Discharge Plan Discharge Patient Disposition: Home Clinical Impression: Shortness of breath, Tracheal stenosis Condition: Stable Prescriptions: New albuterol sulfate 90 mcg/actuation HFA aerosol inhaler 2 inh INHALATION Q6H PRN (Reason: shortness of breath or wheezing) Qty: 8 0RF doxycycline hyclate 100 mg tablet 100 mg PO BID 7 Days Qty: 14 0RF No Action (DME) Sole Supports See Rx Instructions .Route .MEDSUPPLY Qty: 1 0RF Rx Instructions: As directed lactulose 10 gram/15 mL solution 10 g PO BID PRN (Reason: Constipation) (DME) Wheel Chair See Rx Instructions .Route .MEDSUPPLY Qty: 1 0RF Rx Instructions: As directed by HOME lisinopril 10 mg tablet 10 mg PO BEDTIME Hold Instructions: Resume on 07/28/20. mupirocin [Centany] 2 % ointment 1 applic TOPICAL TID PRN (Reason: Rash) albuterol sulfate [ProAir HFA] 90 mcg/actuation Hfa Aerosol Inhaler 1 puff INHALATION Q4H PRN (Reason: Shortness Of Breath) fluticasone propionate 50 mcg/actuation [place],Suspension 2 spray INTRANASAL BEDTIME nortriptyline 50 mg capsule 150 mg PO BEDTIME rosuvastatin 5 mg tablet 5 mg PO QPM cholecalciferol (vitamin D3) 1,250 mcg (50,000 unit) capsule 50,000 unit PO Q7D Rx Instructions: on sunday loratadine [Claritin] 10 mg tablet 10 mg PO DAILY PRN (Reason: Allergy Symptoms) gabapentin 600 mg tablet 600 mg PO BEDTIME glimepiride [Amaryl] 2 mg tablet 2 mg PO BEDTIME acetaminophen [Tylenol Arthritis Pain] 650 mg Tablet Extended Release 1,300 mg PO Q6H PRN (Reason: Pain) potassium chloride 20 mEq tablet,ER particles/crystals 20 meq PO DAILY PRN (Reason: unknown) lidocaine 5 % adhesive patch,medicated See Rx Instructions .ROUTE .COMPLEX Rx Instructions: apply 2 patches topically on for 12 hours, off for 12 hours prn zolpidem 10 mg tablet 10 mg PO BEDTIME PRN (Reason: Sleep) baclofen 10 mg tablet 10 mg PO BEDTIME PRN (Reason: Muscle Spasm) levothyroxine 137 mcg Tablet 137 mcg PO BEDTIME hydroxyzine HCl 25 mg tablet 25 mg PO TID PRN (Reason: Anxiety) buprenorphine-naloxone 8-2 mg film 1 film buccal QAM Trintellix 10 mg tablet 10 mg PO QAM sulfamethoxazole-trimethoprim 800-160 mg tablet 2 tab PO BEDTIME omeprazole 40 mg capsule,delayed release(DR/EC) 40 mg PO BEDTIME ipratropium bromide 21 mcg (0.03 %) spray,non-aerosol 2 spray INTRANASAL TID liothyronine [Cytomel] 25 mcg Tablet 25 mcg PO DAILY Discharge Orders: Discharge ED (Routine); Ordered 07/15/23 Ordered By: Adalid Velazquez Referrals: Maliha Tijerina MD [Primary Care Provider] - Discharge Diet: Advance as tolerated Discharge Activity: Resume usual activity Patient Instructions: Dyspnea (ED) Coding Level of Care Code ED 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
[2023-07-15 11:05] LABS: Basophils # 0.1 10^3/uL (0.0-0.1); Basophils % 0.5 %; Eosinophils # 0.1 10^3/uL (0.0-0.8); Eosinophils % 0.8 %; Hematocrit 44.7 % (36-47); Lymphocytes # 2.6 10^3/uL (0.8-4.8); Lymphocytes % 26.6 %; Mean Corpuscular HGB Conc 32.7 g/dL (30-55); Mean Corpuscular Hemoglobin 28.4 pg (27-33); Mean Platelet Volume 9.5 fL (7.4-10.4); Monocytes # 0.4 10^3/uL (0.2-0.9); Monocytes % 4.3 %; Neutrophils # 6.66 10^3/uL (1.8-7.7); Neutrophils % 67.5 %; Nucleated Red Blood Cells % 0 %; Platelet Count 364 10^3/cmm (157-399); Red Blood Count 5.14 10^6/uL (3.85-5.65); Red Cell Distribution Width 12.8 % (12.1-15.1); White Blood Count 9.87 10^3/uL (3.29-11.43)
[2023-07-15] MEDS: ipratropium-albuterol 3 mL Neb INHALATION (11:12)
[2023-07-15] MEDS: albuterol 2.5 mg/3 mL Neb INHALATION (11:12)
[2023-07-15 11:14] VITALS: PULSE 91; RESP 18; O2SAT 98
[2023-07-15 11:19] LABS: INR 0.92 (0.8-1.2)
[2023-07-15 11:22] LABS: D Dimer 3.63 ug/mLFEU (0-0.59)
[2023-07-15 11:23] LABS: Troponin(5th) Baseline < 6 ng/L (0-10)
--- NOTE | 2023-07-15 11:25 | CTR_ITS ---
PROCEDURE INFORMATION: Exam: CTA Chest With Contrast Exam date and time: 07/15/2023 11:53 AM Age: 52 years old Clinical indication: Shortness of breath; Additional info: SOB TECHNIQUE: Imaging protocol: Computed tomographic angiography of the chest with contrast. Exam focused on the arteries. 3D rendering (Not supervised by radiologist): MIP and/or 3D reconstructed images were created by the technologist. Radiation optimization: All CT scans at this facility use at least one of these dose optimization techniques: automated exposure control; mA and/or kV adjustment per patient size (includes targeted exams where dose is matched to clinical indication); or iterative reconstruction. Contrast material: OMNI 350; Contrast volume: 76 ml; Contrast route: INTRAVENOUS (IV); COMPARISON: 1. CT angio chest w abd pel w con 04/25/2019 3:44 AM 2. CR (CHEST, ) 07/15/2023 11:02 AM RADIATION DOSE METRICS: Total DLP (mGy-cm): 397.67 FINDINGS: Pulmonary arteries: Normal. No pulmonary emboli. Aorta: Unremarkable. No aortic aneurysm. Trachea: Moderate to severe focal asymmetric tracheal stenosis superior to the thoracic inlet, axial image 34 of series 7 and coronal image 27 of series 8. Airway measures 9 x 4 mm on axial image 34 of series 7, previously 11 x 7 mm. Lungs: Scattered mild ground-glass opacities throughout the right upper lobe and superior right middle lobe. No consolidation. No masses. Mild dependent atelectasis. Pleural spaces: Unremarkable. No pneumothorax. No pleural effusion. Heart: Unremarkable. No cardiomegaly. No pericardial effusion. Lymph nodes: Unremarkable. No enlarged lymph nodes. Diaphragm: Small hiatal hernia. Liver: Focal hypodensity adjacent to the fissure for the ligamentum teres likely represents focal fat. Gallbladder and bile ducts: Prior cholecystectomy. Bones/joints: No acute fracture. Mild degenerative changes along the spine. Partially visualized lower cervical spine fusion hardware. Soft tissues: Unremarkable. CT/CT angio chest PE protcl [id number] IMPRESSION: 1. 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 Recommend pulmonology evaluation. 2. Scattered mild ground-glass opacities within the right upper greater than middle lobes may be infectious or inflammatory. Recommend CT Chest at 3-6 months.
[2023-07-15 11:46] LABS: Alanine Aminotransferase 13 U/L (0-33); Albumin Level 4.4 g/dL (3.5-5.2); Alkaline Phosphatase 84 U/L (35-105); Aspartate Amino Transferase 14 U/L (0-32); Blood Urea Nitrogen 20 mg/dL (6-20); Calcium 9.5 mg/dL (8.5-10.5); Carbon Dioxide 19 mmol/L (22-29); Chloride 100 mmol/L (98-107); Creatinine Clr Calc Pharmacy 65.1124; Glomerular Filtration Rate 47.2 mL/min (90-130); Glucose 117 mg/dL (65-115); NT Pro B Type Natriuretic Pept < 36 pg/mL (0-125); Osmolality Calculated 278 mOsm/kg (285-295); Sodium 132 mmol/L (136-145); Total Bilirubin 0.2 mg/dL (0.15-1.2); Total Protein 7.4 g/dL (6.6-8.7)
[2023-07-15 11:47] LABS: Anion Gap 17.8 (5-19); Potassium 4.8 mmol/L (3.5-5.1)
[2023-07-15] MEDS: iohexol 350 mg/mL 500 mL Btl (per mL) IV (11:57)
[2023-07-15 12:00] VITALS: BP 126/79; PULSE 89; O2SAT 93
--- NOTE | 2023-07-15 12:32 | ECG_ITS ---
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 Measurements Intervals [place] Rate: 86 P: 68 MO: 177 QRS: 52 QRSD: 94 T: 67 QT: 335 QTc: 401 Interpretive Statements SINUS RHYTHM Compared to ECG 07/15/2023 10:50:41 T-wave abnormality no longer present Electronically Signed On 07-16-2023 8:38:11 CDT by Sang Jennings M.D. [email or web address] Groupmount [email or web address] [email or web address] Sherpas/store/[id number]
[2023-07-15] MEDS: dexamethasone 10 mg/mL INJ IVP (12:46)
[2023-07-15 12:57] VITALS: BP 116/68; PULSE 86; O2SAT 98
== END 2023-07-15 13:05 | disposition home or self-care (01) ==
PROVIDERS: Emergency Provider Emergency Medicine; PCP Family Medicine
DX: R06.02 Shortness of breath (principal); J39.8 Other specified diseases of upper respiratory tract; Z79.84 Long term (current) use of oral hypoglycemic drugs
CPT/HCPCS: 71045; 71275; 80053; 83880; 84484; 85025; 85378; 85610; 93005; 94640; 96374; 99285; J1100; J7613; Q9967

== ENCOUNTER 2023-11-10 12:52 | Emergency (ER) | payer OTHER, SELFPAY ==
[2023-11-10 12:55] VITALS: BP 108/71; PULSE 101; RESP 18; TEMP 36.4; O2SAT 98; BMI 26.5
--- NOTE | 2023-11-10 13:05 | ECG_ITS ---
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 Measurements Intervals [place] Rate: 96 P: 32 IN: 157 QRS: 34 QRSD: 97 T: 74 QT: 322 QTc: 409 Interpretive Statements SINUS RHYTHM Non diagnostic T wave changes Compared to ECG 07/15/2023 12:32:36 No significant changes Electronically Signed On 11-10-2023 20:01:49 CDT by Sang Jennings M.D. [email or web address] Vehicle [email or web address] health [email or web address]/[id number]
--- NOTE | 2023-11-10 14:19 | ED_ITS ---
HPI - Weakness 2 General: Chief complaint: Weakness Stated complaint: weakness, confusion Time Seen by Provider: 11/10/23 13:18 Source: patient and family Mode of arrival: ambulatory Limitations: no limitations History of Present Illness: This patient presents to the emergency department because she thinks her muscle enzymes may be elevated. 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 She states she is had more muscle cramps and muscle pain in her hips and thighs for the past few days and is just not felt like she had a normal strength and is felt weak. She denies any concomitant illness fevers chills extreme muscle activity exercise etc. She states she is tries to stay well-hydrated and has been drinking fluids well. He states she has been urinating normally and having her normal bowel habits. MD Complaint: generalized weakness Associated symptoms: Denies chest pain, chills, dysuria, easy bruising, fever(s), headache(s), nausea, syncope or vomiting Review of Systems 2 Const: Denies: fever(s) or chills ENMT: Denies: throat pain, odynophagia, nasal discharge or nasal congestion Card: Denies: chest pain, irregular heart rhythm, syncope or pre-syncope Resp: Denies: dyspnea, productive cough or non-productive cough GI: Denies: abdominal pain, nausea, vomiting or diarrhea : Denies: flank pain, difficulty voiding, dysuria, urinary frequency or oliguria Musc: Reports: muscle cramps and muscle weakness; Denies: neck pain Skin/Breast: Denies: rash or pruritus Neuro: Denies: headache(s), numbness in extremities or weakness in extremities Juarez/Lymph: Denies: easy bruising or easy bleeding PFSH ED 2 PFSH: Medical History Chronic cystitis Adrenal insufficiency PVCs (premature ventricular contractions) Stopped taking metoprolol due to weight gain Cervical disc disease Cervical radiculopathy Polymyositis Degenerative lumbar disc Recurrent UTI Surgical History H/O esophagogastroduodenoscopy History of open reduction and internal fixation (ORIF) procedure right ankle bimalleolar fx Status post laparoscopic cholecystectomy H/O: hysterectomy H/O brain surgery History of colonoscopy (08/19/20) Hx of neck surgery 06/[address] [facility] 12/29/19 C5 C6 C7 Hx of bilateral breast reduction surgery Family History Son Cancer BLADDER CANCER Mother Cancer COLON CANCER Diabetes Father Diabetes Social History Smoking and tobacco/nicotine status: never used tobacco/nicotine Alcohol intake: never Substance/Drug Use: never Adopted: No Caregiver/support person: No Lives independently: No Household members: spouse Marital status: Current occupational status: disabled Physical Exam 2 Narrative: EXAM NARRATIVE: She is quite engaged and appears to be in no acute distress answers questions in a goal-directed fashion. Const: COMMON NORMALS: average body habitus, healthy appearing and alert G ENERAL APPEARANCE: cooperative and comfortable HENMT: COMMON NORMALS: normocephalic, Normal nasal mucous membranes and turbinates present, moist oral mucous membranes and oropharynx normal HEAD & SCALP: normocephalic NOSE: Normal nasal mucous membranes and turbinates present Eye: COMMON NORMALS: Equal, round and reactive pupils present, conjunctivae normal and no scleral icterus CONJUNCTIVA: Yes conjunctivae normal PUPIL: Yes Equal, round and reactive pupils present Neck/C-Spine: COMMON NORMALS: full ROM, no lymphadenopathy, no JVD and Thyroid normal THYROID: Thyroid normal Resp: COMMON NORMALS: normal respiratory effort, No retractions and clear to auscultation bilaterally AUSCULTATION: clear to auscultation bilaterally Cardio: COMMON NORMALS: no JVD, regular rate, regular rhythm, No murmurs present (Cardio) and Peripheral pulses 2+ throughout RATE: regular rate R HYTHM: regular rhythm PERIPHERAL PULSES: Peripheral pulses 2+ throughout GI: COMMON NORMALS: Normal to inspection, nondistended, normoactive bowel sounds present : COMMON NORMALS: Yes no CVA tenderness BLADDER/KIDNEY EXAM: Yes no CVA tenderness Back/Pelvis: COMMON NORMALS: no CVA tenderness, thoracic and lumbar spine normal to inspection and no thoracic nor lumbar tenderness Extremity: COMMON NORMALS: normal to inspection, full ROM, capillary refill normal, no calf tenderness and no pedal edema NARRATIVE EXTREMITY EXAM: No tenderness noted with mild to moderate compression of muscle beds of extremities. No joint effusions, joint swelling, joint erythema. Neuro: COMMON NORMALS: moves all extremities, no focal motor deficits and no sensory deficits noted SENSORIUM/ORIENTATION: Yes alert Psych: COMMON NORMALS: mental status grossly normal Skin: COMMON NORMALS: no rashes or lesions noted, turgor normal and no jaundice GENERAL SKIN EXAM: no rashes or lesions noted and turgor normal Course 2 Reevaluation(s): Reevaluation #1: Patient was noted to ambulate from her room to the bathroom and back in her normal gait unaided without any evidence of ataxia or other abnormal gait Time: 14:37 Reevaluation #2: Patient's laboratories are reassuring to include her CK levels. She opines it is she is concerned her blood pressure may be an issue and how she has been feeling and certainly while she is not hypotensive her blood pressures are on the low range of normal and certainly may be a factor. She currently takes lisinopril 10 mg daily and is not clear what this is for blood pressure control slowly or for renal protective factors due to her chronic renal insufficiency. Nonetheless I think it is reasonable for us to hold that medication in the short-term and have her follow her blood pressures. She was appreciative of care and voiced understanding on return precautions Time: 15:42 Vital Signs: Vital signs: Vital Signs Temperature 97.5 F L 11/10/23 12:55 Pulse Rate 75 11/10/23 15:00 Respiratory Rate 17 11/10/23 15:00 Blood Pressure 102/72 11/10/23 15:00 Pulse Oximetry 97 11/10/23 15:00 Oxygen Delivery Me thod Room Air 11/10/23 15:00 MDM - Weakness Medical Decision Making This patient presents to the emergency department because of concerns about possible myopathy. She has a history of inflammatory myositis which is followed at the [facility] in [place]. Her clinical examination was reassuring and there was stigmata that suggested a ongoing emergency medical condition. Laboratories were obtained to evaluate renal function, electrolyte levels, hemoglobin, CK levels etc. to establish that there was no evidence of electrolyte abnormalities, anemia, muscle breakdown etc. These were reassuring. Again no physical findings to suggest an acute illness. Because of her low normal blood pressures we entertain the idea of possibly her lisinopril dose was contributing to her generalized feeling in we will plan on having her hold that and monitor her blood pressures. At this time she is stable to be discharged with outpatient follow-up and return precautions. Medical Records I reviewed the patient's medical records. Lab Data I reviewed the patient's lab results. 11/10/23 14:12 11/10/23 14:12 Laboratory Results WBC 10.90 10^3/uL (3.29-11.43) 11/10/23 14:12 RBC 4.31 10^6/uL (3.85-5.65) 11/10/23 14:12 Hgb 12.60 g/dL (11.27-16.99) 11/10/23 14:12 Hct 37.6 % (36-47) 11/10/23 14:12 MCV 87.2 fl (85-98) 11/10/23 14:12 MCH 29.2 pg (27-33) 11/10/23 14:12 MCHC 33.5 g/dL (30-55) 11/10/23 14:12 RDW 12.3 % (12.1-15.1) 11/10/23 14:12 Plt Count 285 10^3/cmm (157-399) 11/10/23 14:12 MPV 10.0 fL (7.4-10.4) 11/10/23 14:12 Neut % (Auto) 69.6 % 11/10/23 14:12 Lymph % (Auto) 22.8 % 11/10/23 14:12 [place] % (Auto) 5.9 % 11/10/23 14:12 Eos % (Auto) 0.5 % 11/10/23 14:12 Baso % (Auto) 0.4 % 11/10/23 14:12 Neut # (Auto) 7.59 10^3/uL (1.8-7.7) 11/10/23 14:12 Lymph # (Auto) 2.5 10^3/uL (0.8-4.8) 11/10/23 14:12 [place] # (Auto) 0.6 10^3/uL (0.2-0.9) 11/10/23 14:12 Eos # (Auto) 0.1 10^3/uL (0.0-0.8) 11/10/23 14:12 Baso # (Auto) 0.0 10^3/uL (0.0-0.1) 11/10/23 14:12 Nucleated RBC % (auto) 0 % 11/10/23 14:12 Nucleated RBCs # 0.0 /100WBC 11/10/23 14:12 Sodium 134 mmol/L (136-145) L 11/10/23 14:12 Potassium 4.0 mmol/L (3.5-5.1) 11/10/23 14:12 Chloride 98 mmol/L (98-107) 11/10/23 14:12 Carbon Dioxide 25 mmol/L (22-29) 11/10/23 14:12 Anion Gap 15.0 (5-19) 11/10/23 14:12 BUN 14 mg/dL (6-20) 11/10/23 14:12 Creatinine 1.1 mg/dL (0.5-0.9) H 11/10/23 14:12 GFR Calculation 52.0 mL/min (90-130) L 11/10/23 14:12 Glucose 80 mg/dL (65-115) 11/10/23 14:12 Calculated Osmolality 277 mOsm/kg (285-295) L 11/10/23 14:12 Calcium 9.3 mg/dL (8.5-10.5) 11/10/23 14:12 Magnesium 1.9 mg/dL (1.7-2.3) 11/10/23 14:12 Total Bilirubin 0.3 mg/dL (0.15-1.2) 11/10/23 14:12 AST 13 U/L (0-32) 11/10/23 14:12 ALT 11 U/L (0-33) 11/10/23 14:12 Alkaline Phosphatase 64 U/L (35-105) 11/10/23 14:12 Creatine Kinase 117 U/L (26-192) 11/10/23 14:12 Total Protein 6.9 g/dL (6.6-8.7) 11/10/23 14:12 Albumin 4.3 g/dL (3.5-5.2) 11/10/23 14:12 Globulin 2.6 g/dL (1.3-4.6) 11/10/23 14:12 Urine Myoglobin Cancelled 11/10/23 14:42 No radiology studies performed this visit EKG Data EKG 1: I personally reviewed and interpreted this EKG as follows: Interpretation: EKG notable for ventricular rate of 96 bpm consistent with sinus rhythm. She has normal WA interval, QRS duration, corrected QT interval normal axis. No acute ST-T segment changes. Normal rhythm without any evidence of proarrhythmic findings Discharge Plan Discharge Patient Disposition: Home Clinical Impression: Fatigue, Hypertension Condition: Stable Prescriptions: No Action (DME) Sole Supports See Rx Instructions .Route .MEDSUPPLY Qty: 1 0RF Rx Instructions: As directed lactulose 10 gram/15 mL solution 10 g PO BID PRN (Reason: Constipation) (DME) Wheel Chair See Rx Instructions .Route .MEDSUPPLY Qty: 1 0RF Rx Instructions: As directed by HOME lisinopril 10 mg tablet 10 mg PO BEDTIME Hold Instructions: Resume on 07/28/20. mupirocin [Centany] 2 % ointment 1 applic TOPICAL TID PRN (Reason: Rash) albuterol sulfate [ProAir HFA] 90 mcg/actuation Hfa Aerosol Inhaler 1 puff INHALATION Q4H PRN (Reason: Shortness Of Breath) fluticasone propionate 50 mcg/actuation [place],Suspension 2 spray INTRANASAL BEDTIME nortriptyline 50 mg capsule 150 mg PO BEDTIME rosuvastatin 5 mg tablet 5 mg PO QPM cholecalciferol (vitamin D3) 1,250 mcg (50,000 unit) capsule 50,000 unit PO Q7D Rx Instructions: on sunday loratadine [Claritin] 10 mg tablet 10 mg PO DAILY PRN (Reason: Allergy Symptoms) gabapentin 600 mg tablet 600 mg PO BEDTIME glimepiride [Amaryl] 2 mg tablet 2 mg PO BEDTIME acetaminophen [Tylenol Arthritis Pain] 650 mg Tablet Extended Release 1,300 mg PO Q6H PRN (Reason: Pain) potassium chloride 20 mEq tablet,ER particles/crystals 20 meq PO DAILY PRN (Reason: unknown) lidocaine 5 % adhesive patch,medicated See Rx Instructions .ROUTE .COMPLEX Rx Instructions: apply 2 patches topically on for 12 hours, off for 12 hours prn zolpidem 10 mg tablet 10 mg PO BEDTIME PRN (Reason: Sleep) baclofen 10 mg tablet 10 mg PO BEDTIME PRN (Reason: Muscle Spasm) levothyroxine 137 mcg Tablet 137 mcg PO BEDTIME hydroxyzine HCl 25 mg tablet 25 mg PO TID PRN (Reason: Anxiety) buprenorphine-naloxone 8-2 mg film 1 film buccal QAM Trintellix 10 mg tablet 10 mg PO QAM sulfamethoxazole-trimethoprim 800-160 mg tablet 2 tab PO BEDTIME omeprazole 40 mg capsule,delayed release(DR/EC) 40 mg PO BEDTIME ipratropium bromide 21 mcg (0.03 %) spray,non-aerosol 2 spray INTRANASAL TID liothyronine [Cytomel] 25 mcg Tablet 25 mcg PO DAILY albuterol sulfate 90 mcg/actuation HFA aerosol inhaler 2 inh INHALATION Q6H PRN (Reason: shortness of breath or wheezing) Qty: 8 0RF Discharge Orders: Discharge ED (Routine); Ordered 11/10/23 Ordered By: Nacho Dudley Referrals: Maliha Tijerina MD [Primary Care Provider] - Discharge Diet: Usual diet Patient Instructions: Opioid Safety, Pain Management Activity Restrictions/Additional Instructions: As we discussed while you are in the emergency department your laboratory tests here were very reassuring. There is no evidence of increased muscle enzyme levels or other concerning findings. As we discussed as well your blood pressure may be a factor in how you are feeling and we recommend you monitoring your blood pressure at home 2-3 times daily over the next several days. If your blood pressure is less then 120 systolic over 70 diastolic you should not take your blood pressure medicine and then monitor your blood pressure to see if it elevates to a point higher than that that requires resuming your treatment. You should also follow-up with your regular treating clinician in the next week or thereabouts to review your medication profile. If it anytime you develop any new or worsening symptoms you are welcome to return to the emergency department for reevaluation. We recommend you drink at least 2 quarts of water daily. Coding Level of Care Code ED Bioprocessing Manufacturing Technician for Chg Fwd Related Data Home Medications Medication Instructions Recorded Confirmed acetaminophen 650 mg 1,300 mg PO Q6H PRN Pain 03/27/19 09/08/22 tablet,extended release (Tylenol Arthritis Pain) gabapentin 600 mg tablet 600 mg PO BEDTIME 03/27/19 09/08/22 glimepiride 2 mg tablet (Amaryl) 2 mg PO BEDTIME 03/27/19 09/08/22 lidocaine 5 % topical patch See Rx Instructions .Route .COMPLEX 03/27/19 09/08/22 potassium chloride 20 mEq 20 meq PO DAILY PRN unknown 03/27/19 09/08/22 tablet,extended release(part/cryst) zolpidem 10 mg tablet 10 mg PO BEDTIME PRN Sleep 03/27/19 09/08/22 albuterol sulfate 90 mcg/actuation 1 puff inhalation Q4H PRN 07/18/20 09/08/22 aerosol inhaler (ProAir HFA) Shortness Of Breath cholecalciferol (vitamin D3) 1,250 50,000 unit PO Q7D 07/18/20 09/08/22 mcg (50,000 unit) capsule fluticasone propionate 50 2 spray intranasal BEDTIME 07/18/20 09/08/22 mcg/actuation nasal spray,suspension lisinopril 10 mg tablet 10 mg PO BEDTIME 07/18/20 09/08/22 mupirocin 2 % topical ointment 1 applic topical TID PRN Rash 07/18/20 09/08/22 (Centany) nortriptyline 50 mg capsule 150 mg PO BEDTIME 07/18/20 09/08/22 rosuvastatin 5 mg tablet 5 mg PO QPM 07/18/20 09/08/22 levothyroxine 137 mcg tablet 137 mcg PO BEDTIME 08/19/20 09/08/22 baclofen 10 mg tablet 10 mg PO BEDTIME PRN Muscle Spasm 12/29/20 09/08/22 lactulose 10 gram/15 mL oral 10 g PO BID PRN Constipation 12/29/20 09/08/22 solution loratadine 10 mg tablet (Claritin) 10 mg PO DAILY PRN Allergy Symptoms 03/31/21 09/08/22 buprenorphine 8 mg-naloxone 2 mg 1 film buccal QAM 08/19/22 09/08/22 sublingual film hydroxyzine HCl 25 mg tablet 25 mg PO TID PRN Anxiety 08/19/22 09/08/22 ipratropium bromide 21 mcg (0.03 2 spray intranasal TID 08/19/22 09/08/22 %) nasal spray liothyronine 25 mcg tablet 25 mcg PO DAILY 08/19/22 09/08/22 (Cytomel) omeprazole 40 mg capsule,delayed 40 mg PO BEDTIME 08/19/22 09/08/22 release sulfamethoxazole 800 2 tab PO BEDTIME 08/19/22 09/08/22 mg-trimethoprim 160 mg tablet vortioxetine 10 mg tablet 10 mg PO QAM 08/19/22 09/08/22 (Trintellix) Previous Rx's Medication Instructions Recorded Sole Supports #1 ea 04/14/20 Wheel Chair #1 ea 01/16/22 albuterol sulfate 90 mcg/actuation 2 inh inhalation Q6H PRN shortness 07/15/23 aerosol inhaler of breath or wheezing #8 grams Allergies Allergy/AdvReac Type Severity Reaction Status Date / Time No Known Allergies Allergy Verified 11/10/23 13:02
[2023-11-10 14:23] LABS: Basophils % 0.4 %; Eosinophils # 0.1 10^3/uL (0.0-0.8); Eosinophils % 0.5 %; Hematocrit 37.6 % (36-47); Lymphocytes # 2.5 10^3/uL (0.8-4.8); Lymphocytes % 22.8 %; Mean Corpuscular HGB Conc 33.5 g/dL (30-55); Mean Corpuscular Hemoglobin 29.2 pg (27-33); Mean Corpuscular Volume 87.2 fl (85-98); Monocytes # 0.6 10^3/uL (0.2-0.9); Monocytes % 5.9 %; Neutrophils # 7.59 10^3/uL (1.8-7.7); Neutrophils % 69.6 %; Nucleated Red Blood Cells % 0 %; Platelet Count 285 10^3/cmm (157-399); Red Blood Count 4.31 10^6/uL (3.85-5.65); Red Cell Distribution Width 12.3 % (12.1-15.1)
[2023-11-10] MEDS: lactated ringers 1,000 ML 999 ML IV (14:41)
[2023-11-10 14:44] LABS: Alanine Aminotransferase 11 U/L (0-33); Albumin Level 4.3 g/dL (3.5-5.2); Alkaline Phosphatase 64 U/L (35-105); Aspartate Amino Transferase 13 U/L (0-32); Blood Urea Nitrogen 14 mg/dL (6-20); Calcium 9.3 mg/dL (8.5-10.5); Carbon Dioxide 25 mmol/L (22-29); Chloride 98 mmol/L (98-107); Creatine Phosphokinase 117 U/L (26-192); Creatinine Clr Calc Pharmacy 69.7165; Globulin 2.6 g/dL (1.3-4.6); Glucose 80 mg/dL (65-115); Magnesium 1.9 mg/dL (1.7-2.3); Osmolality Calculated 277 mOsm/kg (285-295); Sodium 134 mmol/L (136-145); Total Bilirubin 0.3 mg/dL (0.15-1.2); Total Protein 6.9 g/dL (6.6-8.7)
[2023-11-10 14:46] VITALS: BP 110/69; PULSE 75; RESP 17; O2SAT 99
[2023-11-10 15:00] VITALS: BP 102/72; PULSE 75; RESP 17; O2SAT 97
[2023-11-10 15:59] VITALS: BP 123/86; PULSE 81; RESP 17; O2SAT 96
== END 2023-11-10 15:58 | disposition home or self-care (01) ==
PROVIDERS: Emergency Provider Emergency Medicine; PCP Family Medicine
DX: R53.83 Other fatigue (principal); I10 Essential (primary) hypertension; Z79.84 Long term (current) use of oral hypoglycemic drugs
CPT/HCPCS: 80053; 82550; 83735; 85025; 93005; 99284; J7120

== ENCOUNTER 2023-11-23 11:01 | Outpatient (CLI) | payer OTHER, SELFPAY ==
--- NOTE | 2023-11-23 11:05 | MM_ITS ---
WS: [id number] BILATERAL SCREENING DIGITAL TOMOSYNTHESIS MAMMOGRAM WITH CAD HISTORY: SCREENING COMPARISON: None available. Bilateral CC and MLO views with tomosynthesis and synthetic mammography submitted. Computer aided det ection analyzed. Breast composition: There are scattered areas of fibroglandular density. No suspicious masses, microc alcifications or architectural distortion. Small lymph node posterior RIGHT breast against the pector crow muscle. MM/MM scr BI tomosynthesis [id number] IMPRESSION: BI-RADS: 2 - Benign. FOLLOW UP: 1 Year Follow-up
== END 2023-11-23 11:02 | disposition home or self-care (01) ==
LOC: RAD 11:02
PROVIDERS: PCP Family Medicine; Visit Provider Family Medicine
DX: Z12.31 Encounter for screening mammogram for malignant neoplasm of breast (principal); R92.323 Mammographic fibroglandular density, bilateral breasts
CPT/HCPCS: 77063; 77067

== ENCOUNTER 2024-11-17 18:06 | Emergency (ER) | payer OTHER, SELFPAY ==
[2024-11-17 18:10] VITALS: BP 147/88; PULSE 97; RESP 18; TEMP 36.8; O2SAT 97
--- OUTSIDE RECORDS SUMMARY | 2024-11-17 18:11 | XMS_ITS | Clinical Summary ---
Author Organization [facility] Address [address] Cook: Epic Prelude ADT [place]EL [address] Care Team Providers Care Internal Controls Manager Name Role Phone Jericho Carlton MD Primary Care Provider [phone] Allergies No known active allergies Medications levothyroxine 137 mcg tablet Take 137 mcg by mouth late in the day. Active nortriptyline (PAMELOR) 50 mg capsule Take 150 mg by mouth daily at bedtime. Active lisinopriL (PRINIVIL) 10 mg tablet Take 10 mg by mouth daily. Active liothyronine (Cytomel) 25 mcg Tablet Take 25 mcg by mouth daily. Active semaglutide (Ozempic) 1 mg/dose (4 mg/3 mL) Pen Injector Inject 1 mg by subcutaneous injection every 7 days. Active omeprazole (PriLOSEC) 40 mg Capsule, Delayed Release(E.C.) Take 40 mg by mouth daily. Active glimepiride (AMARYL) 2 mg tablet Take 2 mg by mouth late in the day. 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 11 Resolved Problems Problem Noted Date Diagnosed Date Resolved Date DDD (degenerative disc disease), cervical 05/27/2013 08/12/2013 Herniated cervical intervertebral disc 05/27/2013 08/12/2013 Overview (06/16/2020): C5-6 Cervical radiculitis 05/27/2013 014 Overview (06/16/2020): Bilateral upper extremities Right > left Encounters Date Type Department Care Team Description 10/21/2024 External Device Data [facility] ABSTRACTION Provider, Abstract 10/21/2024 External Device Data [facility]STRACTION Provider, Abstract 10/08/2024 External Device Data [facility]STRACTION Provider, Abstract 10/07/2024 External Device Data [facility]STRACTION Provider, Abstract 10/07/2024 External Device Data [facility]STRACTION Provider, Abstract 09/24/2024 External Device Data [facility]STRACTION Provider, Abstract 2024 External Device Data [facility]STRACTION Provider, Abstract 09/02/2024 External Device Data [facility] ABSTRACTION Provider, Abstract 08/26/2024 External Device Data [facility]STRACTION Provider, Abstract 08/26/2024 External Device Data [facility]STRACTION Provider, Abstract 08/26/2024 External Device Data [facility] ABSTRACTION Provider, Abstract from Last 3 Months Immunizations Immunization Administration Dates Next Due Influenza Seasonal Unspecified Formulation IM Family History Medical History Relation Name Comments Healthy Father Healthy Mother Healthy Sister Relation Name Status Comments Father Alive Mother Alive Sister Alive Social History Tobacco Use Types Packs/Day Years Used Date Smoking Tobacco: Never Smokeless Tobacco: Never Alcohol Use Standard Drinks/Week Comments Not Currently 0 (1 standard drink = 0.6 oz pur e alcohol) Feeling Safe Answer Date Recorded Are you in a relationship wi th someone who hurts you emotionally and/or physically? No 04/25/2024 Comments No Sex and Gender Information Value Date Recorded Sex Assigned at Not on file Legal Sex Female 5:13 AM HERITAGE CONSULTANT Gender Identity Not on file Sexual Orientation Not on file Last Filed Vital Signs Vital Sign Reading Time Taken Comments Blood Pressure 123/84 04/25/2024 9:00 PM HERITAGE CONSULTANT Pulse 68 04/25/2024 9:00 PM HERITAGE CONSULTANT Temperature 36.6 C (97.8 F) 04/25/2024 6:15 PM HERITAGE CONSULTANT Respiratory Rate 18 04/25/2024 9:00 PM HERITAGE CONSULTANT Oxygen Saturation 99% 04/25/2024 9:00 PM HERITAGE CONSULTANT Inhaled Oxygen Concentration - - Weight 86.5 kg (190 lb 9.6 oz) 04/25/2024 6:15 P M HERITAGE CONSULTANT Height 177.8 cm (5' 10 ) 04/25/2024 6:15 PM HERITAGE CONSULTANT Body Mass Index 27.35 04/25/2024 6:15 PM HERITAGE CONSULTANT Plan of Treatment Health Maintenance Due Date Last Done Comments DIABETES ANNUAL FOOT EXAM 1988 DIABETES ANNUAL RETINAL EXAM 1988 DIABETES MICROALBUMIN ANNUAL SCREEN 1988 LDL CHOLESTEROL ANNUAL 1988 HPV/Cotest (21-29) 09/04/1991 CERVICAL CANCER SCREENING 2000 HPV/Cotest (30-65) 2000 PAP SMEAR 2000 DTAP/TDAP/TD VACCINES (2 - Tdap) 03/14/2004 03/14/18 95 BREAST CANCER SCREENING 2010 COLORECTAL SCREENING 09/04/2015 Colorectal Cancer Screening 09/04/2015 FIT-DNA Q 3 years 09/04/2015 FIT/FOBT Q 1 year 09/04/2015 Flex Sig/CT Colonography Q 5 years 09/04/2015 DIABETES HBA1C Q 6 MONTHS 05/30/2018 11/29/2017 ZOSTER VACCINE (1 of 2) 2020 INFLUENZA VACCINE (#1) 2024 0, 12/03/2014, 11/28/2013, Additional history exists COVID-19 Vaccine (3 - 2024-2 6 season) 2024 10/29/2020, 09/27/2020 HEPATITIS B VACCINES Completed 08/25/1994, 03/14/1994, 02/08/1994 Medical Devices Implanted Type Area [employer] Dean Device Identifier Shelf Expiration Date Model / Serial / Lot Log [id number] - Synthes Ttnm Matrixneuro - 1 - Duragen Plus [id number] Implanted:Qty: 1 on 10/21/2009 Biological Left: Cranial INTEGRA LIFESCIENCE HOLD DELMIS 12/21/2011 [id number] / N/A / [id number] Bone Alogrft Cervical 6x8mm [id number] - [id number] Implanted:Qty: 1 on 07/09/2013 Bone N/A: Spine Cervical Anterior LIFENET 08/26/2017 [id number] / [id number] / N/A Bone Alogrft Cervical 6x8mm [id number] - [id number] Implanted:Qty: 1 on 07/09/2013 Bone N/A: Spine Cervical Anterior LIFENET 12/20/2017 [id number] / [id number] / N/A Sn/A - [id number] Implanted:Qty: 1 on 10/21/2009 Mesh Left: Cranial SYNTHES-STRATEC - MAXIFACIAL [id number] / N/A / N/A Description:mesh Plate One Lvl Acp Sz 32mm Dynatran [id number] - Sdyna Load#[id number] Implanted:Qty: 1 on 07/09/2013 Plate N/A: Spine Cervical Anterior HAO- SPINE [id number] / KAREL LOAD# [id number] / N/A Log [id number] - Synthes Ttnm Matrixneuro - 1 - Screw Matrixneuro Sd [id number] Implanted:Qty: 9 on 10/21/2009 Screw Left: Cranial SYNTHES-STRATEC - MAXIFACIAL 04.503.104 .01 / LOAD: [id number] / Screw Rh Sd Va 4.0x14mm [id number] - Sdyna Load#[id number] Implanted:Qty: 6 on 07/09/2013 Screw N/A: Spine Cervical Anterior HAO- SPINE [id number] / KAREL LOAD# [id number] / N/A Log [id number] - Synthes Ttnm Matrixneuro - 1 - Sealant Duraseal 5ml Implanted:Qty: 1 on 10/21/2009 Sealant Left: Cranial 12/20/2010 / N/A / [id number] [place] [address] CHOICE [id number] Care Teams Internal Controls Manager Relationship Specialty Start Date End Date Jericho Carlton MD [address] [place] [address] PCP - General Family Practice 05/13/13
--- NOTE | 2024-11-17 19:52 | CTR_ITS ---
PROCEDURE INFORMATION: Exam: CT Abdomen And Pelvis With Contrast Exam date and time: 11/17/2024 8:46 PM Age: 54 years old Clinical indication: Abdominal pain; Epigastric TECHNIQUE: Imaging protocol: Computed tomography of the abdomen and pelvis with contrast. Radiation optimization: All CT scans at this facility use at least one of these dose optimization techniques: automated exposure control; mA and/or kV adjustment per patient size (includes targeted exams where dose is matched to clinical indication); or iterative reconstruction. Contrast material: OMNIPAQUE 350; Contrast volume: 100 ml; Contrast route: INTRAVENOUS (IV); COMPARISON: CT abdomen pelvis wo con [id number] 07/18/2020 5:32 AM RADIATION DOSE METRICS: Total DLP (mGy-cm): 805.12 FINDINGS: Lungs: The visualized lung bases are unremarkable. Liver: Normal. No mass. Gallbladder and biliary ducts: The gallbladder is surgically absent. No biliary ductal dilation. Pancreas: Normal. No ductal dilation. Spleen: No splenomegaly. Adrenal glands: No adrenal nodule. Kidneys and ureters: No hydronephrosis. Symmetric nephrograms. Stomach and bowel: No obstruction. There is mild diffuse colonic wall thickening with mild adjacent inflammatory stranding. Appendix: The appendix is normal. Intraperitoneal space: No free air. No free fluid. Vasculature: No aortic aneurysm. Lymph nodes: No lymphadenopathy by CT size criteria. Urinary bladder: The urinary bladder is unremarkable. Reproductive: The uterus is surgically absent. No adnexal mass. Bones/joints: No acute fracture. Soft tissues: Unremarkable. CT/CT abdomen pelvis w con* [id number] IMPRESSION: There is diffuse colonic wall thickening with mild adjacent fat stranding. Findings can be seen in the setting colitis, differential includes infectious or inflammatory etiology.
[2024-11-17 20:18] LABS: Hematocrit 36.7 % (36-47); Hemoglobin 12.10 g/dL (11.27-16.99); Mean Corpuscular HGB Conc 33.0 g/dL (30-55); Mean Corpuscular Hemoglobin 27.8 pg (27-33); Mean Corpuscular Volume 84.2 fl (85-98); Nucleated Red Blood Cells % 0 %; Platelet Count 229 10^3/cmm (157-399); Red Blood Count 4.36 10^6/uL (3.85-5.65); White Blood Count 9.26 10^3/uL (3.29-11.43)
--- NOTE | 2024-11-17 20:19 | W.ED.ABDPA2 ---
HPI - Abdominal Pain General: Chief Complaint: Abdominal Pain Stated Complaint: Abd Pain Nausea, hot/cold flashes Time Seen by Provider: 11/17/24 19:04 Source: patient Mode of arrival: ambulatory Limitations: no limitations History of Present Illness: Patient is a 54-year-old female who is presenting to the emergency department complaining of epigastric pain for the past couple of weeks. States that it radiates directly through to her back but she also has pain intermittently to her right side as well. Reports a history of colitis in the past where she states she went septic, is concerned that this is going on again. No vomiting but does state that she feels nauseous. Pain is improved with her lying supine, exacerbated with movement. Has a history of hysterectomy as well as cholecystectomy. States that she does take Ozempic, but is not a chronic alcoholic and denies history of pancreatitis. No fevers, chills, chest pain, or shortness of breath. No urinary symptoms are noted at this time, states that she also has a history of constipation and it is normal for her to only have 1 bowel movement in a 10-day span and there is no new change of this. Her vitals are stable at this time overall nontoxic-appearing, is requesting something for pain and nausea. MD elicited complaint: abdominal pain Pertinent past history: other (Colitis) Onset (ago): week(s) (2) Pain Consistency: intermittent Location: Epigastric Severity: similar to previous episodes Quality: stabbing Radiation: back Associated Symptoms: Reports constipation, nausea and vomiting; Denies bloating, change in stool character, chills, diarrhea, dysuria, fever(s), hematochezia and hematuria Related Data Home Medications ?Medication ?Instructions ?Recorded ?Confirmed acetaminophen 650 mg 1,300 mg PO Q6H PRN Pain 03/27/19 09/08/22 tablet,extended release (Tylenol Arthritis Pain) gabapentin 600 mg tablet 600 mg PO BEDTIME 03/27/19 09/08/22 glimepiride 2 mg tablet (Amaryl) 2 mg PO BEDTIME 03/27/19 09/08/22 lidocaine 5 % topical patch See Rx Instructions .Route .COMPLEX 03/27/19 09/08/22 potassium chloride 20 mEq 20 meq PO DAILY PRN unknown 03/27/19 09/08/22 tablet,extended release(part/cryst) zolpidem 10 mg tablet 10 mg PO BEDTIME PRN Sleep 03/27/19 09/08/22 albuterol sulfate 90 mcg/actuation 1 puff inhalation Q4H PRN 07/18/20 09/08/22 aerosol inhaler (ProAir HFA) Shortness Of Breath cholecalciferol (vitamin D3) 1,250 50,000 unit PO Q7D 07/18/20 09/08/22 mcg (50,000 unit) capsule fluticasone propionate 50 2 spray intranasal BEDTIME 07/18/20 09/08/22 mcg/actuation nasal spray,suspension lisinopril 10 mg tablet 10 mg PO BEDTIME 07/18/20 09/08/22 mupirocin 2 % topical ointment 1 applic topical TID PRN Rash 07/18/20 09/08/22 (Centany) nortriptyline 50 mg capsule 150 mg PO BEDTIME 07/18/20 09/08/22 rosuvastatin 5 mg tablet 5 mg PO QPM 07/18/20 09/08/22 levothyroxine 137 mcg tablet 137 mcg PO BEDTIME 08/19/20 09/08/22 baclofen 10 mg tablet 10 mg PO BEDTIME PRN Muscle Spasm 12/29/20 09/08/22 lactulose 10 gram/15 mL oral 10 g PO BID PRN Constipation 12/29/20 09/08/22 solution loratadine 10 mg tablet (Claritin) 10 mg PO DAILY PRN Allergy Symptoms 03/31/21 09/08/22 buprenorphine 8 mg-naloxone 2 mg 1 film buccal QAM 08/19/22 09/08/22 sublingual film hydroxyzine HCl 25 mg tablet 25 mg PO TID PRN Anxiety 08/19/22 09/08/22 ipratropium bromide 21 mcg (0.03 2 spray intranasal TID 08/19/22 09/08/22 %) nasal spray liothyronine 25 mcg tablet 25 mcg PO DAILY 08/19/22 09/08/22 (Cytomel) omeprazole 40 mg capsule,delayed 40 mg PO BEDTIME 08/19/22 09/08/22 release sulfamethoxazole 800 2 tab PO BEDTIME 08/19/22 09/08/22 mg-trimethoprim 160 mg tablet vortioxetine 10 mg tablet 10 mg PO QAM 08/19/22 09/08/22 (Trintellix) Previous Rx's ?Medication ?Instructions ?Recorded Sole Supports #1 ea 04/14/20 Wheel Chair #1 ea 01/16/22 albuterol sulfate 90 mcg/actuation 2 inh inhalation Q6H PRN shortness 07/15/23 aerosol inhaler of breath or wheezing #8 grams ondansetron 4 mg disintegrating 4 mg PO TID PRN nausea and 11/17/24 tablet vomiting #30 tabs prednisone 20 mg tablet 20 mg PO DAILY 5 days #5 tabs 11/17/24 Allergies Allergy/AdvReac Type Severity Reaction Status Date / Time No Known Allergies Allergy Verified 11/17/24 18:15 Review of Systems General: Reports: 10 or more systems reviewed and unremarkable except in HPI and below Const: Denies: fever(s), chills, change in appetite, change in weight or diaphoresis ENMT: Denies: throat pain or hoarseness Card: Denies: chest pain, palpitations or lightheadedness Resp: Denies: dyspnea, productive cough or wheezing GI: Reports: abdominal pain, nausea, vomiting and constipation; Denies: diarrhea, bloating, change in stool character or hematochezia : Reports: flank pain; Denies: difficulty voiding, dysuria, urinary frequency, urinary urgency or hematuria Musc: Reports: back pain; Denies: neck pain Skin/Breast: Denies: rash or new lesions Neuro: Denies: headache(s) or dizziness PFSH ED PFSH: Medical History Chronic cystitis Adrenal insufficiency PVCs (premature ventricular contractions) Stopped taking metoprolol due to weight gain Cervical disc disease Cervical radiculopathy Polymyositis Degenerative lumbar disc Recurrent UTI Surgical History H/O esophagogastroduodenoscopy History of open reduction and internal fixation (ORIF) procedure right ankle bimalleolar fx Status post laparoscopic cholecystectomy H/O: hysterectomy H/O brain surgery History of colonoscopy (08/19/20) Hx of neck surgery 06/2013 C4 C5 C6 [facility] 12/29/19 C5 C6 C7 Hx of bilateral breast reduction surgery Family History Son Cancer BLADDER CANCER Mother Cancer COLON CANCER Diabetes Father Diabetes Social History Smoking and tobacco/nicotine status: never used tobacco/nicotine Alcohol intake: never Substance/Drug Use: never Adopted: No Caregiver/support person: No Lives independently: No Household members: spouse Marital status: Current occupational status: disabled Physical Exam Const: COMMON NORMALS: no acute distress, average body habitus, patient oriented x3, no limitations, healthy appearing, alert and well nourished GENERAL APPEARANCE: cooperative and comfortable ORIENTATION/CONSCIOUSNESS: Yes awake Neck/C-Spine: COMMON NORMALS: full ROM, supple, no meningeal signs and no JVD Resp: COMMON NORMALS: normal respiratory effort, No retractions, No use of accessory muscles and clear to auscultation bilaterally AUSCULTATION: clear to auscultation bilaterally, no crackles, no rales, no rhonchi and no wheezes Cardio: COMMON NORMALS: no JVD, regular rate, regular rhythm, No gallops present (Cardio), No clicks present (Cardio), No murmurs present (Cardio), No rub (Cardio) and Peripheral pulses 2+ throughout RATE: regular rate RHYTHM: regular rhythm PERIPHERAL PULSES: Peripheral pulses 2+ throughout GI: COMMON NORMALS: Normal to inspection, nondistended, normoactive bowel sounds present, Soft to palpation, No hepatosplenomegaly present and no masses AUSCULTATION: Yes normoactive bowel sounds PALPATION: Yes Soft to palpation, Yes Tenderness to palpation present (GI) (Epigastric), No Guarding due to palpation present (GI), No Rigid due to palpation and Yes No hepatosplenomegaly present RECTAL EXAM: deferred : COMMON NORMALS: Yes no CVA tenderness BLADDER/KIDNEY EXAM: Yes no CVA tenderness Back/Pelvis: COMMON NORMALS: no CVA tenderness Extremity: COMMON NORMALS: normal to inspection and full ROM Neuro: COMMON NORMALS: patient oriented x3, moves all extremities, no focal motor deficits and no sensory deficits noted SENSORIUM/ORIENTATION: Yes alert MENINGEAL SIGNS: Yes no meningeal signs Psych: COMMON NORMALS: mental status grossly normal, cooperative and speech normal SPEECH: Yes normal speech Skin: COMMON NORMALS: no rashes or lesions noted GENERAL SKIN EXAM: no rashes or lesions noted Course Vital Signs: Vital signs: Vital Signs Temperature 98.3 F 11/17/24 18:10 Pulse Rate 84 11/17/24 22:29 Respiratory Rate 16 11/17/24 22:29 Blood Pressure 129/79 11/17/24 22:29 Pulse Oximetry 98 11/17/24 22:29 Oxygen Delivery Me thod Room Air 11/17/24 21:00 MDM - Abdominal Pain Medical Decision Making Presenting to the emergency department clinic epigastric pain, states this has been going on for months but worsened today and also has had some nausea. Reports history of colitis as well as having septicemia due to this. 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 Afebrile, overall vitals and condition is stable Emergency Department. Exam positive for reproducible tenderness palpation of the epigastrium, but overall is nontoxic-appearing. Lab work is reassuring which included CBC, CMP, lipase, and urinalysis. Abdomen/pelvis CT does show evidence that there is a mild colitis, and with her already being established with gastroenterology she is encouraged to keep this follow-up for further outpatient management as there is no acute reason to place her in the hospital or call surgeon. Due to the possibility that this is related to an undiagnosed inflammatory bowel disease, she is started on short prescription for prednisone and Zofran will be sent for nausea. She is given strict return precautions to the ED, she is comfortable with this plan at this time and feels much better after pain medications, fluids, and antiemetics here in the emergency department. Lab Data 11/17/24 20:07 11/17/24 20:07 Labs/Radiology: Radiology Impressions Abdomen/Pelvis CT 11/17/24 19:52 IMPRESSION: There is diffuse colonic wall thickening with mild adjacent fat stranding. Findings can be seen in the setting colitis, differential includes infectious or inflammatory etiology. Laboratory Results WBC 9.26 10^3/uL (3.29-11.43) 11/17/24 20:07 RBC 4.36 10^6/uL (3.85-5.65) 11/17/24 20:07 Hgb 12.10 g/dL (11.27-16.99) 11/17/24 20:07 Hct 36.7 % (36-47) 11/17/24 20:07 MCV 84.2 fl (85-98) L 11/17/24 20:07 MCH 27.8 pg (27-33) 11/17/24 20:07 MCHC 33.0 g/dL (30-55) 11/17/24 20:07 RDW 12.7 % (12.1-15.1) 11/17/24 20:07 Plt Count 229 10^3/cmm (157-399) 11/17/24 20:07 MPV 9.7 fL (7.4-10.4) 11/17/24 20:07 Neut % (Auto) 61.9 % 11/17/24 20:07 Lymph % (Auto) 26.2 % 11/17/24 20:07 Wilcox % (Auto) 9.2 % 11/17/24 20:07 Eos % (Auto) 1.2 % 11/17/24 20:07 Baso % (Auto) 0.4 % 11/17/24 20:07 Neut # (Auto) 5.73 10^3/uL (1.8-7.7) 11/17/24 20:07 Lymph # (Auto) 2.4 10^3/uL (0.8-4.8) 11/17/24 20:07 Wilcox # (Auto) 0.9 10^3/uL (0.2-0.9) 11/17/24 20:07 Eos # (Auto) 0.1 10^3/uL (0.0-0.8) 11/17/24 20:07 Baso # (Auto) 0.0 10^3/uL (0.0-0.1) 11/17/24 20:07 Nucleated RBC % (auto) 0 % 11/17/24 20:07 Nucleated RBCs # 0.0 /100WBC 11/17/24 20:07 Sodium 138 mmol/L (136-145) 11/17/24 20:07 Potassium 3.8 mmol/L (3.5-5.1) 11/17/24 20:07 Chloride 101 mmol/L (98-107) 11/17/24 20:07 Carbon Dioxide 26 mmol/L (22-29) 11/17/24 20:07 Anion Gap 14.8 (5-19) 11/17/24 20:07 BUN 12 mg/dL (6-20) 11/17/24 20:07 Creatinine 1.1 mg/dL (0.5-0.9) H 11/17/24 20:07 GFR Calculation 51.8 mL/min (90-130) L 11/17/24 20:07 Glucose 95 mg/dL (65-115) 11/17/24 20:07 Calculated Osmolality 286 mOsm/kg (285-295) 11/17/24 20:07 Calcium 8.8 mg/dL (8.5-10.5) 11/17/24 20:07 Total Bilirubin 0.2 mg/dL (0.15-1.2) 11/17/24 20:07 AST 10 U/L (0-32) 11/17/24 20:07 ALT 12 U/L (0-33) 11/17/24 20:07 Alkaline Phosphatase 90 U/L (35-105) 11/17/24 20:07 Total Protein 6.8 g/dL (6.6-8.7) 11/17/24 20:07 Albumin 4.0 g/dL (3.5-5.2) 11/17/24 20:07 Globulin 2.8 g/dL (1.3-4.6) 11/17/24 20:07 Lipase 34 U/L (13-60) 11/17/24 20:07 Urine Color Yellow (Yellow) 11/17/24 21:53 Urine Appearance Clear (CLEAR) 11/17/24 21:53 Urine pH 6.0 (5-7) 11/17/24 21:53 Ur Specific Renner 1.060 (1.005-1.030) H 11/17/24 21:53 Urine Protein Negative (Negative) 11/17/24 21:53 Urine Glucose (UA) Negative (Normal) 11/17/24 21:53 Urine Ketones Negative (Negative) 11/17/24 21:53 Urine Blood Negative (Negative) 11/17/24 21:53 Urine Nitrate Negative (Negative) 11/17/24 21:53 Urine Bilirubin Negative (Negative) 11/17/24 21:53 Urine Urobilinogen 1.0 mg/dL (Negative) 09/29/25 21:53 Ur Leukocyte Esterase Negative (Negative) 11/17/24 21:53 Amorphous Sediment Not Reportable 11/17/24 21:53 All radiology interpretation(s) finalized by discharge Discharge Plan Discharge Patient Disposition: Home Clinical Impression: Colitis Condition: Stable Prescriptions: New ondansetron 4 mg tablet,disintegrating 4 mg PO TID PRN (Reason: nausea and vomiting) Qty: 30 0RF prednisone 20 mg tablet 20 mg PO DAILY 5 Days Qty: 5 0RF No Action (DME) Sole Supports See Rx Instructions .Route .MEDSUPPLY Qty: 1 0RF Rx Instructions: As directed lactulose 10 gram/15 mL solution 10 g PO BID PRN (Reason: Constipation) (DME) Wheel Chair See Rx Instructions .Route .MEDSUPPLY Qty: 1 0RF Rx Instructions: As directed by HOME lisinopril 10 mg tablet 10 mg PO BEDTIME mupirocin [Centany] 2 % ointment 1 applic TOPICAL TID PRN (Reason: Rash) albuterol sulfate [ProAir HFA] 90 mcg/actuation Hfa Aerosol Inhaler 1 puff INHALATION Q4H PRN (Reason: Shortness Of Breath) fluticasone propionate 50 mcg/actuation [place],Suspension 2 spray INTRANASAL BEDTIME nortriptyline 50 mg capsule 150 mg PO BEDTIME rosuvastatin 5 mg tablet 5 mg PO QPM cholecalciferol (vitamin D3) 1,250 mcg (50,000 unit) capsule 50,000 unit PO Q7D Rx Instructions: on sunday loratadine [Claritin] 10 mg tablet 10 mg PO DAILY PRN (Reason: Allergy Symptoms) gabapentin 600 mg tablet 600 mg PO BEDTIME glimepiride [Amaryl] 2 mg tablet 2 mg PO BEDTIME acetaminophen [Tylenol Arthritis Pain] 650 mg Tablet Extended Release 1,300 mg PO Q6H PRN (Reason: Pain) potassium chloride 20 mEq tablet,ER particles/crystals 20 meq PO DAILY PRN (Reason: unknown) lidocaine 5 % adhesive patch,medicated See Rx Instructions .ROUTE .COMPLEX Rx Instructions: apply 2 patches topically on for 12 hours, off for 12 hours prn zolpidem 10 mg tablet 10 mg PO BEDTIME PRN (Reason: Sleep) baclofen 10 mg tablet 10 mg PO BEDTIME PRN (Reason: Muscle Spasm) levothyroxine 137 mcg Tablet 137 mcg PO BEDTIME hydroxyzine HCl 25 mg tablet 25 mg PO TID PRN (Reason: Anxiety) buprenorphine-naloxone 8-2 mg film 1 film buccal QAM Trintellix 10 mg tablet 10 mg PO QAM sulfamethoxazole-trimethoprim 800-160 mg tablet 2 tab PO BEDTIME omeprazole 40 mg capsule,delayed release(DR/EC) 40 mg PO BEDTIME ipratropium bromide 21 mcg (0.03 %) spray,non-aerosol 2 spray INTRANASAL TID liothyronine [Cytomel] 25 mcg Tablet 25 mcg PO DAILY albuterol sulfate 90 mcg/actuation HFA aerosol inhaler 2 inh INHALATION Q6H PRN (Reason: shortness of breath or wheezing) Qty: 8 0RF Discharge Orders: Discharge ED (Routine); Ordered 11/17/24 Ordered By: Obey Watt Patient Instructions: Patient Portal [facility] Noble Instructions Activity Restrictions/Additional Instructions: Colitis Discharge Instructions Diagnosis: Colitis Medications: - Prednisone 20 mg orally once daily for 5 days. This is a short course intended for induction of remission in active colitis, as recommended by the [employer] [place] [employer] and [employer] [place] [employer] for patients with mild to moderate disease activity who are being worked up for IBD. The duration of systemic corticosteroids should be as short as possible, with early transition to steroid-sparing therapy if IBD is confirmed. - Ondansetron (Zofran) 4 mg orally every 8 hours as needed for nausea. This is for symptomatic relief. Follow-up: - Patient is scheduled to follow up with gastroenterology in the coming weeks. Ongoing management and further diagnostic evaluation will be coordinated with the specialist. Monitoring and Health Maintenance: - Monitor for changes in bowel symptoms, including frequency, consistency, presence of blood, urgency, and abdominal discomfort. - Adherence to prescribed medications is critical to reduce risk of relapse and complications. - No NSAIDs, opioids, or anticholinergic medications should be used unless specifically directed, as these may worsen colitis. Strict Return Precautions: - Return to the emergency department or contact your physician immediately for any of the following: - Severe abdominal pain, distension, or inability to pass stool or gas (concern for toxic megacolon or perforation). - Persistent vomiting or inability to tolerate oral intake. - Signs of dehydration (dry mouth, decreased urination, dizziness). - High fever (>101?F/38.3?C) or rigors. - New or worsening rectal bleeding. - Signs of systemic toxicity (confusion, rapid heart rate, low blood pressure). - Any new or concerning symptoms. Additional Notes: - Prednisone is associated with potential side effects, including mood changes, insomnia, increased appetite, elevated blood glucose, and risk of infection. These risks are minimized with short courses, but patients should be monitored for adverse effects. - If symptoms worsen or do not improve within 5?7 days, escalation of therapy or further evaluation may be required. - Laboratory results are currently reassuring, but ongoing assessment is necessary. Patient Education: - The diagnosis of colitis is under evaluation; further testing may clarify the underlying cause (e.g., ulcerative colitis, Crohn's disease, infectious colitis). - The goal of therapy is to induce remission, decrease risk of complications, and improve quality of life. - Continue all prescribed medications as directed until follow-up. Contact Information: - For urgent issues, contact the on-call flight radio officer or return to the emergency department. Print Language: [place] Coding Level of Care Code ED Model And Mold Maker for Miracle Pugh
[2024-11-17] MEDS: morphine 4 mg/mL SDV 1 mL IVP (20:28)
[2024-11-17] MEDS: ondansetron 2 mg/ML SDV 2 mL 4 MG IVP (20:28)
[2024-11-17 20:33] VITALS: BP 135/92; PULSE 86; RESP 16; O2SAT 96
[2024-11-17 20:37] LABS: Alanine Aminotransferase 12 U/L (0-33); Albumin Level 4.0 g/dL (3.5-5.2); Alkaline Phosphatase 90 U/L (35-105); Anion Gap 14.8 (5-19); Aspartate Amino Transferase 10 U/L (0-32); Blood Urea Nitrogen 12 mg/dL (6-20); Calcium 8.8 mg/dL (8.5-10.5); Carbon Dioxide 26 mmol/L (22-29); Chloride 101 mmol/L (98-107); Creatinine Clr Calc Pharmacy 69.5849; Globulin 2.8 g/dL (1.3-4.6); Glucose 95 mg/dL (65-115); Lipase 34 U/L (13-60); Osmolality Calculated 286 mOsm/kg (285-295); Potassium 3.8 mmol/L (3.5-5.1); Sodium 138 mmol/L (136-145); Total Protein 6.8 g/dL (6.6-8.7)
[2024-11-17] MEDS: iohexol 350 mg/mL 500 mL Btl (per mL) PO (20:48)
[2024-11-17 20:52] LABS: Slide Review Slide Review Perform
[2024-11-17 21:00] VITALS: BP 127/66; PULSE 84; RESP 16; O2SAT 97
[2024-11-17 22:01] LABS: Add Urine Microscopic? NO
[2024-11-17 22:04] LABS: Glucose Urine UA Negative (Normal); Nitrate Urine Negative (Negative)
[2024-11-17] MEDS: morphine 4 mg/mL SDV 1 mL 2 MG IVP (22:04)
[2024-11-17 22:20] LABS: Charge for UA Resulting for Rev; Specific Gravity, Urine 1.060 (1.005-1.030)
[2024-11-17 22:29] VITALS: BP 129/79; PULSE 84; RESP 16; O2SAT 98
== END 2024-11-17 22:28 | disposition home or self-care (01) ==
PROVIDERS: Emergency Provider Physician Assistant
DX: K52.9 Noninfective gastroenteritis and colitis, unspecified (principal)
CPT/HCPCS: 36415; 74177; 80053; 81003; 83690; 85025; 96361; 96374; 96375; 96376; 99285; J2270; J2405; J7040

== ENCOUNTER → 2024-12-22 09:52 | Outpatient (BNVA) | payer OTHER, SELFPAY | PROVIDERS: PCP Family Medicine; Visit Provider Family Medicine | DX: E11.65 Type 2 diabetes mellitus with hyperglycemia (principal); E06.3 Autoimmune thyroiditis; I12.9 Hypertensive chronic kidney disease with stage 1 through stage 4 chronic kidney disease, or unspecified chronic kidney disease; N18.31 Chronic kidney disease, stage 3a | CPT/HCPCS: 80061; 82043; 83036; 84439; 84443 ==